=== PATIENT | female | born 1970 | race African-American/Black ===

== ENCOUNTER 2016-08-29 16:15 | Emergency (ER) | payer MEDICARE, OTHER ==
[~2016-08-29] VITALS: Ht 160 cm; Wt 45.0 kg
[2016-08-29] MEDS ORDERED: ONDANSETRON HCL 4MG/2ML VIAL IV STA (18:29)
[2016-08-29] MEDS ORDERED: SODIUM CHLORIDE 0.9% 1,000 ML IV ONE (18:29)
[2016-08-29 19:45] LABS: BASOPHILS % 0.5 % (0.0-2.0); EOSINOPHILS % 3.9 % (0.0-5.0); HEMATOCRIT. 32.9 % (36.0-48.0); HEMOGLOBIN. 11.2 g/dL (12.0-16.0); LYMPHOCYTES % 30.3 % (20.0-50.0); MEAN CORPUSCULAR HEMOGLOBIN 30.3 pg (28.0-32.0); MEAN CORPUSCULAR VOLUME 88.9 fL (81.0-99.0); MEAN PLATELET VOLUME 9.7 fl (7.4-10.4); MONOCYTES % 8.5 % (2.0-8.0); NEUTROPHILS % 56.8 % (40.0-76.0); PLATELET 200 x1000/uL (130-400); RED CELL DISTRIBUTION WIDTH 14.1 % (11.6-14.6); WHITE BLOOD COUNT 7.2 x1000/uL (4.5-11.0)
[2016-08-29 19:46] LABS: CHLORIDE 109 mEq/L (98-107); INDEX HEMOLYSI 1 (1-3); INDEX ICTERIC 1 (1-4); INDEX LIPEMIC 1 (1-3)
[2016-08-29 19:54] LABS: ALANINE AMINOTRANSFERASE 18 IU/L (13-61); ALBUMIN 3.2 g/dL (3.4-5.0); ANION GAP 12; CARBON DIOXIDE 26 mEq/L (21-32); ETHANOL BLOOD < 10 mg/dL; LIPASE 257 IU/L (73-393); UREA NITROGEN BLOOD 11 mg/dL (7-21); eGFR > 60 mL/min (>60)
[2016-08-29 19:55] LABS: HCG SCREEN NEGATIVE
[2016-08-29 20:36] LABS: CLARITY URINE CLEAR (CLEAR); COLOR URINE YELLOW (YELLOW); GLUCOSE URINE NEGATIVE (NEGATIVE); KETONES URINE NEGATIVE (NEGATIVE); LEUKOCYTE ESTERASE URINE NEGATIVE (NEGATIVE); NITRITE URINE NEGATIVE (NEGATIVE); OCCULT BLOOD URINE NEGATIVE (NEGATIVE); PH URINE 6.5 (4.5-8.0); PROTEIN URINE NEGATIVE (NEGATIVE); SPECIFIC GRAVITY URINE 1.013 (1.005-1.030); UROBILINOGEN URINE 0.2 E.U./dL (0.2-1.0)
[2016-08-29 20:46] LABS: *AMPHETAMINES SCREEN URINE NEGATIVE (NEGATIVE); *BARBITURATES SCREEN URINE NEGATIVE (NEGATIVE); *BENZODIAZEPINES SCREEN URINE NEGATIVE (NEGATIVE); *COCAINE SCREEN URINE NEGATIVE (NEGATIVE); CANNABINOID URINE SCREEN NEGATIVE (NEGATIVE); ECSTASY MDMA SCREEN URINE NEGATIVE (NEGATIVE); METHADONE URINE SCREEN NEGATIVE (NEGATIVE); OPIATES URINE SCREEN NEGATIVE (NEGATIVE); PHENCYCLIDINE URINE SCREEN NEGATIVE (NEGATIVE)
[2016-08-29] MEDS ORDERED: ALBUTEROL (0.083%) 2.5MG/3ML NEB HHN STA (21:50)
[2016-08-29 22:36] VITALS: BP 131/74
== END 2016-08-30 01:06 | disposition home or self-care (01) ==
LOC: ER 16:16
DX: N92.1 Excessive and frequent menstruation with irregular cycle (principal); K59.00 Constipation, unspecified; R10.9 Unspecified abdominal pain; D57.1 Sickle-cell disease without crisis; F41.9 Anxiety disorder, unspecified; J45.909 Unspecified asthma, uncomplicated; Z88.5 Allergy status to narcotic agent; Z88.1 Allergy status to other antibiotic agents
CPT/HCPCS: 36415; 74176; 80053; 80305; 81003; 83690; 84703; 85025; 85044; 94640; 96361; 96374; 99285; G0482; J2405; J7030; J7611

== ENCOUNTER 2016-11-15 15:02 | Emergency (ER) | payer MEDICARE, MEDICAID ==
[~2016-11-15] VITALS: Ht 160 cm; Wt 44.0 kg
[2016-11-15] MEDS ORDERED: ONDANSETRON 4MG ODT PO STA (21:57)
[2016-11-15] MEDS ORDERED: IBUPROFEN 600MG TABLET PO STA (21:57)
[2016-11-15 22:14] LABS: CLARITY URINE TURBID (CLEAR); COLOR URINE YELLOW (YELLOW); GLUCOSE URINE NEGATIVE (NEGATIVE); KETONES URINE 2+ (NEGATIVE); LEUKOCYTE ESTERASE URINE TRACE (NEGATIVE); NITRITE URINE NEGATIVE (NEGATIVE); OCCULT BLOOD URINE TRACE (NEGATIVE); PH URINE 6.5 (4.5-8.0); PROTEIN URINE NEGATIVE (NEGATIVE); SPECIFIC GRAVITY URINE 1.016 (1.005-1.030); UROBILINOGEN URINE 0.2 E.U./dL (0.2-1.0)
[2016-11-15 22:30] LABS: BASOPHILS % 0.6 % (0.0-2.0); EOSINOPHILS % 2.1 % (0.0-5.0); HEMATOCRIT. 36.7 % (36.0-48.0); HEMOGLOBIN. 12.6 g/dL (12.0-16.0); LYMPHOCYTES % 37.3 % (20.0-50.0); MEAN CORPUSCULAR HEMOGLOBIN 30.5 pg (28.0-32.0); MEAN CORPUSCULAR VOLUME 88.8 fL (81.0-99.0); MEAN PLATELET VOLUME 9.7 fl (7.4-10.4); MONOCYTES % 9.3 % (2.0-8.0); NEUTROPHILS % 50.7 % (40.0-76.0); PLATELET 215 x1000/uL (130-400); RED BLOOD CELL COUNT 4.13 mill/uL (4.2-5.4); RED CELL DISTRIBUTION WIDTH 14.5 % (11.6-14.6)
[2016-11-15 22:44] LABS: CARBON DIOXIDE 28 mEq/L (21-32); CHLORIDE 108 mEq/L (98-107)
[2016-11-15 23:18] VITALS: BP 119/69
== END 2016-11-16 07:01 | disposition home or self-care (01) ==
LOC: ER 15:02
DX: R10.9 Unspecified abdominal pain (principal); F41.9 Anxiety disorder, unspecified; J45.909 Unspecified asthma, uncomplicated; Z88.6 Allergy status to analgesic agent; Z88.1 Allergy status to other antibiotic agents
CPT/HCPCS: 36415; 80053; 81001; 81025; 85025; 99284; Q0162

== ENCOUNTER 2017-02-09 10:42 | Emergency (ER) | payer MEDICARE, MEDICAID ==
[~2017-02-09] VITALS: Ht 149.9 cm; Wt 42.0 kg
[2017-02-09 14:16] LABS: CLARITY URINE CLEAR (CLEAR); COLOR URINE YELLOW (YELLOW); GLUCOSE URINE NEGATIVE (NEGATIVE); KETONES URINE NEGATIVE (NEGATIVE); LEUKOCYTE ESTERASE URINE NEGATIVE (NEGATIVE); NITRITE URINE NEGATIVE (NEGATIVE); OCCULT BLOOD URINE NEGATIVE (NEGATIVE); PROTEIN URINE NEGATIVE (NEGATIVE); SPECIFIC GRAVITY URINE 1.009 (1.005-1.030); UROBILINOGEN URINE 0.2 E.U./dL (0.2-1.0)
[2017-02-09] MEDS ORDERED: SODIUM CHLORIDE 0.9% 1,000 ML IV ONE (15:52)
[2017-02-09] MEDS ORDERED: KETOROLAC 30MG/ML VIAL IV STA (15:52)
[2017-02-09 16:09] LABS: BASOPHILS % 0.6 % (0.0-2.0); EOSINOPHILS % 1.5 % (0.0-5.0); HEMATOCRIT. 37.8 % (36.0-48.0); HEMOGLOBIN. 12.8 g/dL (12.0-16.0); LYMPHOCYTES % 31.8 % (20.0-50.0); MEAN CORPUSCULAR HEMOGLOBIN 30.1 pg (28.0-32.0); MEAN PLATELET VOLUME 9.7 fl (7.4-10.4); MONOCYTES % 6.4 % (2.0-8.0); NEUTROPHILS % 59.7 % (40.0-76.0); PLATELET 209 x1000/uL (130-400); RED BLOOD CELL COUNT 4.25 mill/uL (4.2-5.4); RED CELL DISTRIBUTION WIDTH 13.2 % (11.6-14.6)
[2017-02-09 16:14] LABS: INR 1.1; PROTHROMBIN TIME 11.5 sec (9.4-11.6)
[2017-02-09 16:19] LABS: CARBON DIOXIDE 27 mEq/L (21-32); CHLORIDE 105 mEq/L (98-107)
[2017-02-09] MEDS ORDERED: LORAZEPAM 1MG TABLET PO ONE (16:45)
[2017-02-09 18:42] VITALS: BP 128/71
== END 2017-02-09 18:47 | disposition home or self-care (01) ==
LOC: ER 10:50
DX: A08.4 Viral intestinal infection, unspecified (principal); F41.9 Anxiety disorder, unspecified; J45.909 Unspecified asthma, uncomplicated; Z88.6 Allergy status to analgesic agent; Z88.3 Allergy status to other anti-infective agents
CPT/HCPCS: 36415; 80053; 81003; 81025; 83690; 85025; 85610; 96361; 96374; 99285; J1885; J7030

== ENCOUNTER 2017-03-18 13:13 | Emergency (ER) | payer MEDICARE, MEDICAID ==
[~2017-03-18] VITALS: Ht 157.5 cm; Wt 43.6 kg
[2017-03-18] MEDS ORDERED: ZOFRAN (13:26)
[2017-03-18] MEDS ORDERED: ONDANSETRON HCL 4MG/2ML VIAL IV STA (14:57)
[2017-03-18] MEDS ORDERED: SODIUM CHLORIDE 0.9% 1,000 ML IV ONE (14:57)
[2017-03-18] MEDS ORDERED: KETOROLAC 30MG/ML VIAL IV ONE (15:00)
[2017-03-18 15:28] LABS: BASOPHILS % 0.9 % (0.0-2.0); EOSINOPHILS % 3.7 % (0.0-5.0); HEMATOCRIT. 37.1 % (36.0-48.0); HEMOGLOBIN. 12.7 g/dL (12.0-16.0); LYMPHOCYTES % 29.2 % (20.0-50.0); MEAN CORPUSCULAR HEMOGLOBIN 30.6 pg (28.0-32.0); MEAN CORPUSCULAR VOLUME 89.5 fL (81.0-99.0); MEAN PLATELET VOLUME 9.7 fl (7.4-10.4); MONOCYTES % 7.2 % (2.0-8.0); PLATELET 205 x1000/uL (130-400); RED BLOOD CELL COUNT 4.14 mill/uL (4.2-5.4); RED CELL DISTRIBUTION WIDTH 14.2 % (11.6-14.6)
[2017-03-18 15:31] LABS: CHLORIDE 109 mEq/L (98-107)
[2017-03-18 15:35] LABS: CARBON DIOXIDE 29 mEq/L (21-32)
[2017-03-18 16:53] LABS: CLARITY URINE CLEAR (CLEAR); COLOR URINE YELLOW (YELLOW); GLUCOSE URINE NEGATIVE (NEGATIVE); KETONES URINE NEGATIVE (NEGATIVE); LEUKOCYTE ESTERASE URINE NEGATIVE (NEGATIVE); NITRITE URINE NEGATIVE (NEGATIVE); OCCULT BLOOD URINE NEGATIVE (NEGATIVE); PROTEIN URINE NEGATIVE (NEGATIVE); SPECIFIC GRAVITY URINE 1.016 (1.005-1.030); UROBILINOGEN URINE 0.2 E.U./dL (0.2-1.0)
[2017-03-18 18:06] VITALS: BP 106/67
== END 2017-03-18 18:18 | disposition home or self-care (01) ==
LOC: ER 13:34
DX: M25.512 Pain in left shoulder (principal); M54.42 Lumbago with sciatica, left side; R10.9 Unspecified abdominal pain; R11.0 Nausea; J45.909 Unspecified asthma, uncomplicated; F41.9 Anxiety disorder, unspecified; Z88.1 Allergy status to other antibiotic agents; Z88.5 Allergy status to narcotic agent
CPT/HCPCS: 36415; 80053; 81003; 81025; 83690; 85025; 96361; 96374; 96375; 99284; J1885; J2405; J7030

== ENCOUNTER 2017-05-11 14:37 | Emergency (ER) | payer MEDICARE, MEDICAID ==
[~2017-05-11] VITALS: Ht 157.5 cm; Wt 45.1 kg
[~2017-05-11 14:37] MED LIST: ZOFRAN
[2017-05-11] MEDS ORDERED: ONDANSETRON HCL 4MG/2ML VIAL IV STA (22:09)
[2017-05-11] MEDS ORDERED: FAMOTIDINE 20MG/2ML VIAL IV ONE (22:30)
[2017-05-11] MEDS ORDERED: LORAZEPAM 2MG/ML CPJ IV ONE (22:30)
[2017-05-11 22:57] LABS: BASOPHILS % 0.7 % (0.0-2.0); EOSINOPHILS % 2.9 % (0.0-5.0); HEMATOCRIT. 37.2 % (36.0-48.0); HEMOGLOBIN. 12.6 g/dL (12.0-16.0); LYMPHOCYTES % 37.4 % (20.0-50.0); MEAN CORPUSCULAR HEMOGLOBIN 30.5 pg (28.0-32.0); MEAN CORPUSCULAR VOLUME 90.1 fL (81.0-99.0); MEAN PLATELET VOLUME 9.6 fl (7.4-10.4); MONOCYTES % 8.7 % (2.0-8.0); NEUTROPHILS % 50.3 % (40.0-76.0); PLATELET 251 x1000/uL (130-400); RED BLOOD CELL COUNT 4.13 mill/uL (4.2-5.4); RED CELL DISTRIBUTION WIDTH 14.3 % (11.6-14.6)
[2017-05-11 23:02] LABS: INR 1.1
[2017-05-11 23:07] LABS: CARBON DIOXIDE 25 mEq/L (21-32); CHLORIDE 106 mEq/L (98-107)
[2017-05-11 23:47] LABS: CLARITY URINE CLEAR (CLEAR); COLOR URINE YELLOW (YELLOW); KETONES URINE 2+ (NEGATIVE); LEUKOCYTE ESTERASE URINE NEGATIVE (NEGATIVE); NITRITE URINE NEGATIVE (NEGATIVE); OCCULT BLOOD URINE NEGATIVE (NEGATIVE); PROTEIN URINE NEGATIVE (NEGATIVE); SPECIFIC GRAVITY URINE 1.016 (1.005-1.030); UROBILINOGEN URINE 0.2 E.U./dL (0.2-1.0)
[2017-05-12 00:04] LABS: *AMPHETAMINES SCREEN URINE NEGATIVE (NEGATIVE); *BARBITURATES SCREEN URINE NEGATIVE (NEGATIVE); *BENZODIAZEPINES SCREEN URINE NEGATIVE (NEGATIVE); *COCAINE SCREEN URINE NEGATIVE (NEGATIVE); CANNABINOID URINE SCREEN NEGATIVE (NEGATIVE); METHADONE URINE SCREEN NEGATIVE (NEGATIVE); OPIATES URINE SCREEN NEGATIVE (NEGATIVE); PHENCYCLIDINE URINE SCREEN NEGATIVE (NEGATIVE)
[2017-05-12 00:09] VITALS: BP 110/62
== END 2017-05-12 00:37 | disposition home or self-care (01) ==
LOC: ER 15:50
DX: K21.9 Gastro-esophageal reflux disease without esophagitis (principal); F41.9 Anxiety disorder, unspecified; Z88.5 Allergy status to narcotic agent; Z88.1 Allergy status to other antibiotic agents
CPT/HCPCS: 36415; 80053; 80305; 81003; 83690; 85025; 85610; 96374; 96375; 99284; J2060; J2405; J3490

== ENCOUNTER 2017-06-26 12:48 | Emergency (ER) | payer MEDICARE, MEDICAID ==
[~2017-06-26] VITALS: Ht 157.5 cm; Wt 44.7 kg
[2017-06-26 15:34] LABS: BASOPHILS % 0.3 % (0.0-2.0); EOSINOPHILS % 1.4 % (0.0-5.0); HEMATOCRIT. 36.4 % (36.0-48.0); HEMOGLOBIN. 12.2 g/dL (12.0-16.0); LYMPHOCYTES % 24.3 % (20.0-50.0); MEAN CORPUSCULAR HEMOGLOBIN 30.1 pg (28.0-32.0); MEAN CORPUSCULAR VOLUME 89.5 fL (81.0-99.0); MEAN PLATELET VOLUME 9.4 fl (7.4-10.4); MONOCYTES % 7.8 % (2.0-8.0); NEUTROPHILS % 66.2 % (40.0-76.0); PLATELET 240 x1000/uL (130-400); RED BLOOD CELL COUNT 4.07 mill/uL (4.2-5.4); RED CELL DISTRIBUTION WIDTH 13.4 % (11.6-14.6)
[2017-06-26 15:45] LABS: CHLORIDE 105 mEq/L (98-107)
[2017-06-26 16:53] VITALS: BP 118/72
== END 2017-06-26 16:56 | disposition home or self-care (01) ==
LOC: ER 12:48
DX: M94.0 Chondrocostal junction syndrome [Tietze] (principal); R09.81 Nasal congestion; J45.909 Unspecified asthma, uncomplicated; Z88.1 Allergy status to other antibiotic agents; Z88.5 Allergy status to narcotic agent
CPT/HCPCS: 36415; 71045; 80053; 85025; 85044; 87804; 93005; 99285

== ENCOUNTER 2017-11-16 16:20 | Emergency (ER) | payer MEDICARE, MEDICAID ==
[~2017-11-16] VITALS: Ht 157.5 cm; Wt 44.4 kg
[2017-11-16 17:50] LABS: BASOPHILS % 1.2 % (0.0-2.0); EOSINOPHILS % 5.8 % (0.0-5.0); LYMPHOCYTES % 31.7 % (20.0-50.0); MEAN CORPUSCULAR HEMOGLOBIN 29.9 pg (28.0-32.0); MEAN CORPUSCULAR VOLUME 89.6 fL (81.0-99.0); MEAN PLATELET VOLUME 9.7 fl (7.4-10.4); MONOCYTES % 7.6 % (2.0-8.0); NEUTROPHILS % 53.7 % (40.0-76.0); PLATELET 242 x1000/uL (130-400); RED BLOOD CELL COUNT 4.02 mill/uL (4.2-5.4); RED CELL DISTRIBUTION WIDTH 13.9 % (11.6-14.6)
[2017-11-16] MEDS ORDERED: SODIUM CHLORIDE 0.9% 1,000 ML IV ONE (18:03)
[2017-11-16 18:07] LABS: CHLORIDE 107 mEq/L (98-107)
[2017-11-16] MEDS ORDERED: MAGNESIUM/ALUMINUM HYDROXIDE/SIMETHICONE 30ML UDC PO ONE (18:30)
[2017-11-16 18:38] LABS: CLARITY URINE CLEAR (CLEAR); COLOR URINE YELLOW (YELLOW); KETONES URINE NEGATIVE (NEGATIVE); LEUKOCYTE ESTERASE URINE NEGATIVE (NEGATIVE); NITRITE URINE NEGATIVE (NEGATIVE); OCCULT BLOOD URINE 2+ (NEGATIVE); PH URINE 7.5 (4.5-8.0); PROTEIN URINE NEGATIVE (NEGATIVE); SPECIFIC GRAVITY URINE 1.014 (1.005-1.030); UROBILINOGEN URINE 0.2 E.U./dL (0.2-1.0)
[2017-11-16 18:39] LABS: INR 1.1; PARTIAL THROMBOPLASTIN TIME 25.5 sec (23.4-31.0); PROTHROMBIN TIME 11.4 sec (9.4-11.6)
[2017-11-16 18:51] LABS: OPIATES URINE SCREEN NEGATIVE (NEGATIVE); PHENCYCLIDINE URINE SCREEN NEGATIVE (NEGATIVE)
[2017-11-16 18:52] LABS: *AMPHETAMINES SCREEN URINE NEGATIVE (NEGATIVE); *BARBITURATES SCREEN URINE NEGATIVE (NEGATIVE); *BENZODIAZEPINES SCREEN URINE NEGATIVE (NEGATIVE); *COCAINE SCREEN URINE NEGATIVE (NEGATIVE); CANNABINOID URINE SCREEN NEGATIVE (NEGATIVE); METHADONE URINE SCREEN NEGATIVE (NEGATIVE)
[2017-11-16 20:30] VITALS: BP 112/70
== END 2017-11-16 20:30 | disposition home or self-care (01) ==
LOC: ER 16:20
DX: R10.13 Epigastric pain (principal); H53.8 Other visual disturbances; F41.9 Anxiety disorder, unspecified; D57.1 Sickle-cell disease without crisis; J45.909 Unspecified asthma, uncomplicated; K21.9 Gastro-esophageal reflux disease without esophagitis; Z88.5 Allergy status to narcotic agent; Z88.1 Allergy status to other antibiotic agents; Z88.0 Allergy status to penicillin
CPT/HCPCS: 36415; 80053; 80305; 81003; 81025; 83690; 85025; 85044; 85610; 85730; 93971; 99285; J7030

== ENCOUNTER 2017-12-23 16:27 | Emergency (ER) | payer MEDICARE, MEDICAID ==
[~2017-12-23] VITALS: Ht 165.1 cm; Wt 52.0 kg
[2017-12-24] MEDS ORDERED: METOCLOPRAMIDE HCL 10MG/2ML VIAL IV ONE (01:30)
[2017-12-24] MEDS ORDERED: FAMOTIDINE 20MG/2ML VIAL IV STA (01:30)
[2017-12-24] MEDS ORDERED: MAGNESIUM/ALUMINUM HYDROXIDE/SIMETHICONE 30ML UDC PO STA (01:30)
[2017-12-24] MEDS ORDERED: DIPHENHYDRAMINE 50MG/ML VIAL IV ONE (01:30)
[2017-12-24 02:16] LABS: HEMATOCRIT. 35.7 % (36.0-48.0); HEMOGLOBIN. 12.1 g/dL (12.0-16.0); LYMPHOCYTES % 43.5 % (20.0-50.0); MEAN CORPUSCULAR HEMOGLOBIN 30.5 pg (28.0-32.0); MEAN CORPUSCULAR VOLUME 89.8 fL (81.0-99.0); MEAN PLATELET VOLUME 9.9 fl (7.4-10.4); MONOCYTES % 9.2 % (2.0-8.0); NEUTROPHILS % 40.3 % (40.0-76.0); PLATELET 205 x1000/uL (130-400); RED BLOOD CELL COUNT 3.98 mill/uL (4.2-5.4); RED CELL DISTRIBUTION WIDTH 14.3 % (11.6-14.6)
[2017-12-24 02:21] LABS: CHLORIDE 106 mEq/L (98-107)
[2017-12-24 02:23] LABS: INR 1.1; PROTHROMBIN TIME 10.7 sec (9.1-11.1)
[2017-12-24 04:05] LABS: CLARITY URINE CLEAR (CLEAR); COLOR URINE YELLOW (YELLOW); KETONES URINE NEGATIVE (NEGATIVE); LEUKOCYTE ESTERASE URINE TRACE (NEGATIVE); NITRITE URINE NEGATIVE (NEGATIVE); OCCULT BLOOD URINE 2+ (NEGATIVE); PH URINE 6.5 (4.5-8.0); PROTEIN URINE NEGATIVE (NEGATIVE); SPECIFIC GRAVITY URINE 1.013 (1.005-1.030); UROBILINOGEN URINE 0.2 E.U./dL (0.2-1.0)
[2017-12-24 05:00] VITALS: BP 93/59
== END 2017-12-24 05:15 | disposition home or self-care (01) ==
LOC: ER 19:02
DX: G43.909 Migraine, unspecified, not intractable, without status migrainosus (principal); R10.13 Epigastric pain; H53.8 Other visual disturbances; F41.9 Anxiety disorder, unspecified; J45.909 Unspecified asthma, uncomplicated; Z88.5 Allergy status to narcotic agent; Z88.1 Allergy status to other antibiotic agents
CPT/HCPCS: 36415; 76700; 80053; 81003; 81025; 83690; 85025; 85610; 96374; 96375; 99285; J1200; J2765; J3490

== ENCOUNTER 2018-02-20 18:23 | Emergency (ER) | payer MEDICARE, MEDICAID ==
[~2018-02-20] VITALS: Ht 162.6 cm; Wt 41.0 kg
[2018-02-20] MEDS ORDERED: MAGNESIUM/ALUMINUM HYDROXIDE/SIMETHICONE 30ML UDC PO STA (19:30)
[2018-02-20] MEDS ORDERED: IBUPROFEN 600MG TABLET PO STA (19:30)
[2018-02-20] MEDS ORDERED: ONDANSETRON 4MG ODT PO STA (19:30)
[2018-02-20 21:00] LABS: BASOPHILS % 0.9 % (0.0-2.0); EOSINOPHILS % 7.1 % (0.0-5.0); HEMATOCRIT. 38.5 % (36.0-48.0); HEMOGLOBIN. 12.8 g/dL (12.0-16.0); LYMPHOCYTES % 31.7 % (20.0-50.0); MEAN CORPUSCULAR HEMOGLOBIN 29.9 pg (28.0-32.0); MEAN CORPUSCULAR VOLUME 89.9 fL (81.0-99.0); MEAN PLATELET VOLUME 9.9 fl (7.4-10.4); MONOCYTES % 6.4 % (2.0-8.0); NEUTROPHILS % 53.9 % (40.0-76.0); PLATELET 249 x1000/uL (130-400); RED BLOOD CELL COUNT 4.28 mill/uL (4.2-5.4); RED CELL DISTRIBUTION WIDTH 15.5 % (11.6-14.6)
[2018-02-20 21:01] LABS: CHLORIDE 107 mEq/L (98-107)
[2018-02-20 21:05] LABS: CLARITY URINE CLEAR (CLEAR); COLOR URINE YELLOW (YELLOW); KETONES URINE NEGATIVE (NEGATIVE); LEUKOCYTE ESTERASE URINE NEGATIVE (NEGATIVE); NITRITE URINE NEGATIVE (NEGATIVE); OCCULT BLOOD URINE NEGATIVE (NEGATIVE); PROTEIN URINE NEGATIVE (NEGATIVE); SPECIFIC GRAVITY URINE 1.015 (1.005-1.030); UROBILINOGEN URINE 0.2 E.U./dL (0.2-1.0)
[2018-02-20 21:07] LABS: HCG SCREEN NEGATIVE
[2018-02-20] MEDS ORDERED: KETOROLAC 60MG/2ML VIAL IM ONE (22:00)
[2018-02-20] MEDS ORDERED: LORAZEPAM 0.5MG TABLET PO ONE (22:00)
[2018-02-20] MEDS ORDERED: IBUPROFEN 600MG TABLET PO ONE (23:15)
[2018-02-20 23:30] VITALS: BP 120/74
== END 2018-02-20 23:30 | disposition home or self-care (01) ==
LOC: ER 18:23
DX: K85.90 Acute pancreatitis without necrosis or infection, unspecified (principal); D64.9 Anemia, unspecified; J45.909 Unspecified asthma, uncomplicated; Z88.1 Allergy status to other antibiotic agents; Z88.6 Allergy status to analgesic agent; Z88.8 Allergy status to other drugs, medicaments and biological substances
CPT/HCPCS: 36415; 71045; 74018; 76705; 80053; 81003; 83690; 84703; 85025; 93005; 99285; J1885; Q0162

== ENCOUNTER 2018-04-04 08:17 | Emergency (ER) | payer MEDICARE, MEDICAID ==
[~2018-04-04] VITALS: Ht 157.5 cm; Wt 41.0 kg
[2018-04-04] MEDS ORDERED: LORAZEPAM 0.5MG TABLET PO ONE (09:45)
[2018-04-04] MEDS ORDERED: ACETAMINOPHEN 325MG TABLET PO STA (09:45)
[2018-04-04] MEDS ORDERED: FAMOTIDINE 20MG TABLET PO ONE (09:45)
[2018-04-04] MEDS ORDERED: ONDANSETRON 4MG ODT PO STA (09:45)
[2018-04-04 10:46] LABS: BASOPHILS % 0.6 % (0.0-2.0); EOSINOPHILS % 2.4 % (0.0-5.0); HEMOGLOBIN. 13.3 g/dL (12.0-16.0); LYMPHOCYTES % 25.7 % (20.0-50.0); MEAN CORPUSCULAR HEMOGLOBIN 30.6 pg (28.0-32.0); MEAN CORPUSCULAR VOLUME 89.7 fL (81.0-99.0); MEAN PLATELET VOLUME 9.8 fl (7.4-10.4); MONOCYTES % 6.8 % (2.0-8.0); NEUTROPHILS % 64.5 % (40.0-76.0); PLATELET 227 x1000/uL (130-400); RED BLOOD CELL COUNT 4.35 mill/uL (4.2-5.4); RED CELL DISTRIBUTION WIDTH 15.2 % (11.6-14.6)
[2018-04-04 10:52] LABS: CLARITY URINE CLEAR (CLEAR); COLOR URINE YELLOW (YELLOW); KETONES URINE NEGATIVE (NEGATIVE); LEUKOCYTE ESTERASE URINE TRACE (NEGATIVE); NITRITE URINE NEGATIVE (NEGATIVE); OCCULT BLOOD URINE NEGATIVE (NEGATIVE); PROTEIN URINE NEGATIVE (NEGATIVE); SPECIFIC GRAVITY URINE 1.015 (1.005-1.030); UROBILINOGEN URINE 0.2 E.U./dL (0.2-1.0)
[2018-04-04 10:53] LABS: CHLORIDE 105 mEq/L (98-107)
[2018-04-04 10:57] LABS: INR 1.1; PROTHROMBIN TIME 10.8 sec (9.1-11.1)
[2018-04-04 11:40] VITALS: BP 108/81
== END 2018-04-04 11:52 | disposition home or self-care (01) ==
LOC: ER 08:17
DX: R10.0 Acute abdomen (principal); F41.9 Anxiety disorder, unspecified
CPT/HCPCS: 36415; 80053; 81003; 81025; 83690; 85025; 85610; 99284; Q0162

== ENCOUNTER 2018-05-11 13:33 | Inpatient (IN) | payer MEDICARE, MEDICAID ==
[~2018-05-11] VITALS: Ht 157.5 cm; Wt 42.2 kg
[2018-05-11] MEDS ORDERED: SODIUM CHLORIDE 0.9% 1,000 ML IV ONE (16:15)
[2018-05-11] MEDS ORDERED: KETOROLAC 30MG/ML VIAL IV STA (16:15)
[2018-05-11 16:42] LABS: BASOPHILS % 0.4 % (0.0-2.0); EOSINOPHILS % 3.8 % (0.0-5.0); HEMATOCRIT. 40.5 % (36.0-48.0); HEMOGLOBIN. 13.5 g/dL (12.0-16.0); LYMPHOCYTES % 28.9 % (20.0-50.0); MEAN CORPUSCULAR HEMOGLOBIN 30.7 pg (28.0-32.0); MEAN CORPUSCULAR VOLUME 91.6 fL (81.0-99.0); MEAN PLATELET VOLUME 9.8 fl (7.4-10.4); MONOCYTES % 6.2 % (2.0-8.0); NEUTROPHILS % 60.7 % (40.0-76.0); PLATELET 252 x1000/uL (130-400); RED BLOOD CELL COUNT 4.42 mill/uL (4.2-5.4); RED CELL DISTRIBUTION WIDTH 14.1 % (11.6-14.6)
[2018-05-11 16:46] LABS: CHLORIDE 103 mEq/L (98-107)
[2018-05-11 17:42] LABS: CLARITY URINE CLEAR (CLEAR); COLOR URINE DARK YELLOW (YELLOW); KETONES URINE NEGATIVE (NEGATIVE); LEUKOCYTE ESTERASE URINE NEGATIVE (NEGATIVE); NITRITE URINE NEGATIVE (NEGATIVE); OCCULT BLOOD URINE NEGATIVE (NEGATIVE); PROTEIN URINE NEGATIVE (NEGATIVE); SPECIFIC GRAVITY URINE 1.012 (1.005-1.030); UROBILINOGEN URINE 0.2 E.U./dL (0.2-1.0)
[2018-05-11] MEDS ORDERED: ASPIRIN 81MG TABLET PO ONE (19:30)
[2018-05-11] MEDS ORDERED: DOCUSATE SODIUM 100MG CAPSULE PO PRN (22:00)
[2018-05-11] MEDS ORDERED: CLONIDINE 0.1MG TABLET PO PRN (22:00)
[2018-05-11] MEDS ORDERED: IPRATROPIUM/ALBUTEROL 0.5-3(2.5)MG/3ML NEB INH PRN (22:00)
[2018-05-11] MEDS ORDERED: MAGNESIUM/ALUMINUM HYDROXIDE/SIMETHICONE 30ML UDC PO PRN (22:00)
[2018-05-11] MEDS ORDERED: HYDROCODONE/ACETAMINOPHEN 5/325MG TABLET PO PRN (22:00)
[2018-05-11] MEDS ORDERED: GUAIFENESIN 200MG/10ML SUGAR FREE UDC PO PRN (22:00)
[2018-05-11 23:18] LABS: CHLORIDE 107 mEq/L (98-107)
[2018-05-11 23:27] LABS: CREATINE KINASE 77 IU/L (26-192)
[2018-05-11 23:29] LABS: CREATINE KINASE MB FRACTION < 1.0 ng/mL (0.5-3.6)
[2018-05-11] MEDS: ACETAMINOPHEN 650MG/20.3ML UDC GT PRN (23:39)
[2018-05-11 23:55] VITALS: BP 122/62
[2018-05-12 00:12] VITALS: BP 122/62
[2018-05-12] MEDS ORDERED: LORA-250 PO (00:44)
[2018-05-12] MEDS ORDERED: FAMO40TA70 PO (00:44)
[2018-05-12 04:00] VITALS: BP 92/54
[2018-05-12] MEDS: ACETAMINOPHEN 650MG/20.3ML UDC GT PRN (05:28)
[2018-05-12] MEDS: KETOROLAC 30MG/ML VIAL IV PRN ×2 (05:29→19:58)
[2018-05-12 06:28] LABS: EOSINOPHILS % 11.4 % (0.0-5.0); HEMOGLOBIN. 12.3 g/dL (12.0-16.0); LYMPHOCYTES % 36.5 % (20.0-50.0); MEAN CORPUSCULAR VOLUME 90.9 fL (81.0-99.0); MEAN PLATELET VOLUME 9.8 fl (7.4-10.4); MONOCYTES % 9.6 % (2.0-8.0); NEUTROPHILS % 41.5 % (40.0-76.0); PLATELET 219 x1000/uL (130-400); RED BLOOD CELL COUNT 3.96 mill/uL (4.2-5.4); RED CELL DISTRIBUTION WIDTH 14.3 % (11.6-14.6)
[2018-05-12 06:45] LABS: LDL CHOLESTEROL 77 mg/dL (5-100)
[2018-05-12 06:46] LABS: CREATINE KINASE 70 IU/L (26-192); HDL CHOLESTEROL 88 mg/dL (40-59)
[2018-05-12 06:49] LABS: CREATINE KINASE MB FRACTION < 1.0 ng/mL (0.5-3.6)
[2018-05-12 07:59] LABS: *COCAINE SCREEN URINE NEGATIVE (NEGATIVE)
[2018-05-12 08:00] VITALS: BP 101/65
[2018-05-12 08:00] LABS: *AMPHETAMINES SCREEN URINE NEGATIVE (NEGATIVE); *BARBITURATES SCREEN URINE NEGATIVE (NEGATIVE); CANNABINOID URINE SCREEN NEGATIVE (NEGATIVE); METHADONE URINE SCREEN NEGATIVE (NEGATIVE); OPIATES URINE SCREEN NEGATIVE (NEGATIVE); PHENCYCLIDINE URINE SCREEN NEGATIVE (NEGATIVE)
[2018-05-12 08:01] LABS: *BENZODIAZEPINES SCREEN URINE NEGATIVE (NEGATIVE)
[2018-05-12] MEDS: ONDANSETRON HCL 4MG/2ML INJ IV PRN ×2 (09:07→18:11)
[2018-05-12] MEDS: ENOXAPARIN 40MG/0.4ML SYR SUBCUT SCH (09:08)
[2018-05-12 12:00] VITALS: BP 91/60
[2018-05-12] MEDS: LORAZEPAM 1MG TABLET PO PRN (13:27)
[2018-05-12 16:00] VITALS: BP 101/39
[2018-05-12 20:00] VITALS: BP_SYST 104; BP_SYST 86; BP_SYST 96; BP_DIAS 54; BP_DIAS 56
[2018-05-12] MEDS: SODIUM CHLORIDE 0.9% 1,000 ML IV SCH ×2 (20:00)
[2018-05-13] VITALS: BP 94/64
[2018-05-13] MEDS: ONDANSETRON HCL 4MG/2ML INJ IV PRN ×3 (00:37→17:36)
[2018-05-13] MEDS: LORAZEPAM 1MG TABLET PO PRN ×2 (00:37→09:09)
[2018-05-13 04:00] VITALS: BP 87/55
[2018-05-13 07:46] LABS: BASOPHILS % 0.4 % (0.0-2.0); EOSINOPHILS % 8.5 % (0.0-5.0); HEMATOCRIT. 36.9 % (36.0-48.0); HEMOGLOBIN. 12.1 g/dL (12.0-16.0); LYMPHOCYTES % 29.1 % (20.0-50.0); MEAN CORPUSCULAR HEMOGLOBIN 30.2 pg (28.0-32.0); MEAN CORPUSCULAR VOLUME 91.8 fL (81.0-99.0); MEAN PLATELET VOLUME 9.9 fl (7.4-10.4); MONOCYTES % 7.6 % (2.0-8.0); NEUTROPHILS % 54.4 % (40.0-76.0); PLATELET 198 x1000/uL (130-400); RED BLOOD CELL COUNT 4.02 mill/uL (4.2-5.4); RED CELL DISTRIBUTION WIDTH 13.9 % (11.6-14.6)
[2018-05-13 08:00] VITALS: BP 124/53
[2018-05-13 08:13] LABS: CHLORIDE 107 mEq/L (98-107)
[2018-05-13] MEDS: ENOXAPARIN 40MG/0.4ML SYR SUBCUT SCH (09:07)
[2018-05-13] MEDS: KETOROLAC 30MG/ML VIAL IV PRN (09:08)
[2018-05-13 12:00] VITALS: BP 91/61
[2018-05-13 16:00] VITALS: BP_SYST 110; BP_SYST 93; BP_DIAS 60; BP_DIAS 64
[2018-05-13] MEDS: SODIUM CHLORIDE 0.9% 1,000 ML IV SCH (16:00)
== END 2018-05-13 18:15 | disposition home or self-care (01) | DRG 392 ==
LOC: ER 13:33 → 6EST 22:23 → EDBEDREQTM 22:25 → EDBEDREQ 22:25 → ENRESERV 22:29
PROVIDERS: ADMIT Internal Medicine; ATTEND Internal Medicine
DX: K21.9 Gastro-esophageal reflux disease without esophagitis (principal); D57.3 Sickle-cell trait; J45.909 Unspecified asthma, uncomplicated; F41.1 Generalized anxiety disorder; G43.909 Migraine, unspecified, not intractable, without status migrainosus; F41.0 Panic disorder [episodic paroxysmal anxiety]; H53.8 Other visual disturbances; Z59.0 Homelessness; Z88.1 Allergy status to other antibiotic agents; Z88.8 Allergy status to other drugs, medicaments and biological substances; Z79.899 Other long term (current) drug therapy
CPT/HCPCS: 36415; 70551; 71045; 74176; 80048; 80061; 80305; 81025; 82550; 82553; 83735; 84443; 84484; 93005; 93970; 96374; 97162; 97166; 97530; 99285; J1650; J1885; J2405; J7030

== ENCOUNTER 2018-06-13 14:42 | Emergency (ER) | payer MEDICARE, MEDICAID ==
[~2018-06-13] VITALS: Ht 160 cm; Wt 59.0 kg
[~2018-06-13 14:42] MED LIST changes: +FAMO40TA70 PO; +LORA-250 PO
[2018-06-13] MEDS ORDERED: LORAZEPAM 1MG TABLET PO ONE (20:45)
[2018-06-13 21:27] LABS: CLARITY URINE CLEAR (CLEAR); COLOR URINE YELLOW (YELLOW); KETONES URINE TRACE (NEGATIVE); LEUKOCYTE ESTERASE URINE NEGATIVE (NEGATIVE); NITRITE URINE NEGATIVE (NEGATIVE); OCCULT BLOOD URINE NEGATIVE (NEGATIVE); PH URINE 7.5 (4.5-8.0); PROTEIN URINE NEGATIVE (NEGATIVE); SPECIFIC GRAVITY URINE 1.014 (1.005-1.030); UROBILINOGEN URINE 0.2 E.U./dL (0.2-1.0)
[2018-06-13 21:36] LABS: *AMPHETAMINES SCREEN URINE NEGATIVE (NEGATIVE); *BARBITURATES SCREEN URINE NEGATIVE (NEGATIVE); *BENZODIAZEPINES SCREEN URINE NEGATIVE (NEGATIVE); *COCAINE SCREEN URINE NEGATIVE (NEGATIVE); METHADONE URINE SCREEN NEGATIVE (NEGATIVE); OPIATES URINE SCREEN NEGATIVE (NEGATIVE)
[2018-06-13 21:37] LABS: CANNABINOID URINE SCREEN NEGATIVE (NEGATIVE); PHENCYCLIDINE URINE SCREEN NEGATIVE (NEGATIVE)
[2018-06-13 21:59] LABS: BASOPHILS % 0.9 % (0.0-2.0); EOSINOPHILS % 3.5 % (0.0-5.0); HEMATOCRIT. 36.9 % (36.0-48.0); HEMOGLOBIN. 12.4 g/dL (12.0-16.0); LYMPHOCYTES % 37.6 % (20.0-50.0); MEAN CORPUSCULAR HEMOGLOBIN 30.8 pg (28.0-32.0); MEAN CORPUSCULAR VOLUME 91.8 fL (81.0-99.0); MEAN PLATELET VOLUME 9.9 fl (7.4-10.4); MONOCYTES % 8.9 % (2.0-8.0); NEUTROPHILS % 49.1 % (40.0-76.0); PLATELET 190 x1000/uL (130-400); RED BLOOD CELL COUNT 4.02 mill/uL (4.2-5.4); RED CELL DISTRIBUTION WIDTH 13.6 % (11.6-14.6)
[2018-06-13 22:02] LABS: CHLORIDE 108 mEq/L (98-107)
[2018-06-13 22:07] LABS: ETHANOL BLOOD < 10 mg/dL
[2018-06-13] MEDS ORDERED: ACETAMINOPHEN 500MG TABLET PO ONE (22:30)
[2018-06-13 22:41] VITALS: BP 115/74
== END 2018-06-13 23:07 | disposition home or self-care (01) ==
LOC: ER 15:30
DX: R07.89 Other chest pain (principal); Z88.5 Allergy status to narcotic agent; Z88.8 Allergy status to other drugs, medicaments and biological substances
CPT/HCPCS: 36415; 71045; 80305; 81025; 83880; 84484; 93005; 99284

== ENCOUNTER 2018-06-18 14:37 | Inpatient (IN) | payer MEDICARE, MEDICAID ==
[~2018-06-18] VITALS: Ht 157.5 cm; Wt 43.1 kg
[2018-06-18] MEDS ORDERED: METOCLOPRAMIDE HCL 10MG/2ML VIAL IV ONE ×2 (17:00→18:45)
[2018-06-18] MEDS ORDERED: KETOROLAC 15MG/ML VIAL IV ONE (17:00)
[2018-06-18] MEDS ORDERED: SODIUM CHLORIDE 0.9% 1,000 ML IV ONE (17:00)
[2018-06-18] MEDS ORDERED: DIPHENHYDRAMINE 50MG/ML VIAL IV ONE (18:45)
[2018-06-18 19:00] LABS: CLARITY URINE CLEAR (CLEAR); COLOR URINE YELLOW (YELLOW); KETONES URINE NEGATIVE (NEGATIVE); LEUKOCYTE ESTERASE URINE NEGATIVE (NEGATIVE); NITRITE URINE NEGATIVE (NEGATIVE); OCCULT BLOOD URINE NEGATIVE (NEGATIVE); PH URINE 7.5 (4.5-8.0); PROTEIN URINE NEGATIVE (NEGATIVE); SPECIFIC GRAVITY URINE 1.013 (1.005-1.030); UROBILINOGEN URINE 0.2 E.U./dL (0.2-1.0)
[2018-06-18 20:37] LABS: BASOPHILS % 0.5 % (0.0-2.0); EOSINOPHILS % 2.5 % (0.0-5.0); HEMATOCRIT. 36.6 % (36.0-48.0); HEMOGLOBIN. 12.2 g/dL (12.0-16.0); LYMPHOCYTES % 42.3 % (20.0-50.0); MEAN CORPUSCULAR HEMOGLOBIN 30.7 pg (28.0-32.0); MEAN CORPUSCULAR VOLUME 92.2 fL (81.0-99.0); MEAN PLATELET VOLUME 10.1 fl (7.4-10.4); MONOCYTES % 12.9 % (2.0-8.0); NEUTROPHILS % 41.8 % (40.0-76.0); PLATELET 171 x1000/uL (130-400); RED BLOOD CELL COUNT 3.97 mill/uL (4.2-5.4); RED CELL DISTRIBUTION WIDTH 14.1 % (11.6-14.6)
[2018-06-18 20:43] LABS: CHLORIDE 110 mEq/L (98-107); D-DIMER 0.3 mg/L FEU (<0.50); INR 1.1; PARTIAL THROMBOPLASTIN TIME 28.7 sec (23.4-31.0); PROTHROMBIN TIME 10.7 sec (9.1-11.1)
[2018-06-18 20:54] LABS: HCG SCREEN NEGATIVE
[2018-06-18] MEDS ORDERED: ASPIRIN 325MG EC TABLET PO ONE (21:00)
[2018-06-18] MEDS ORDERED: DIPHENHYDRAMINE 50MG/ML VIAL IV PRN (22:45)
[2018-06-18] MEDS ORDERED: IPRATROPIUM/ALBUTEROL 0.5-3(2.5)MG/3ML NEB INH PRN (22:45)
[2018-06-18] MEDS ORDERED: ONDANSETRON HCL 4MG/2ML INJ IV PRN (22:45)
[2018-06-19 03:15] VITALS: BP 95/61
[2018-06-19 03:30] VITALS: BP_SYST 95; BP_DIAS 60; BP_DIAS 61
[2018-06-19] MEDS: SODIUM CHLORIDE 0.9% 1,000 ML IV SCH ×3 (05:51→21:50)
[2018-06-19 06:36] LABS: BASOPHILS % 0.5 % (0.0-2.0); EOSINOPHILS % 3.6 % (0.0-5.0); HEMATOCRIT. 33.8 % (36.0-48.0); HEMOGLOBIN. 11.4 g/dL (12.0-16.0); MEAN CORPUSCULAR HEMOGLOBIN 30.9 pg (28.0-32.0); MEAN CORPUSCULAR VOLUME 91.3 fL (81.0-99.0); MEAN PLATELET VOLUME 10.1 fl (7.4-10.4); NEUTROPHILS % 40.9 % (40.0-76.0); PLATELET 159 x1000/uL (130-400); RED CELL DISTRIBUTION WIDTH 13.9 % (11.6-14.6)
[2018-06-19 06:42] LABS: CHLORIDE 111 mEq/L (98-107)
[2018-06-19 08:00] VITALS: BP 99/56
[2018-06-19] MEDS: ACETAMINOPHEN 325MG TABLET PO PRN ×2 (08:08→21:50)
[2018-06-19 12:00] VITALS: BP 99/55
[2018-06-19 16:00] VITALS: BP 103/53
[2018-06-19] MEDS: LORAZEPAM 0.5MG TABLET PO PRN (17:41)
[2018-06-19] MEDS: PAROXETINE HCL 10MG TABLET PO SCH (18:35)
[2018-06-19 20:00] VITALS: BP 100/61
[2018-06-20] VITALS (7 sets, daily range): BP systolic 96–109; BP diastolic 55–71
[2018-06-20] MEDS: PAROXETINE HCL 10MG TABLET PO SCH (08:19)
[2018-06-20] MEDS: ACETAMINOPHEN 325MG TABLET PO PRN (08:38)
[2018-06-20] MEDS: SODIUM CHLORIDE 0.9% 1,000 ML IV SCH (10:12)
[2018-06-20] MEDS: LORAZEPAM 0.5MG TABLET PO PRN (10:12)
[2018-06-20] MEDS ORDERED: IBUPROFEN 400MG TABLET PO PRN (13:00)
== END 2018-06-20 18:25 | disposition home or self-care (01) | DRG 866 ==
LOC: ER 14:37 → 8WST 21:16 → ENRESERV 22:45
PROVIDERS: ADMIT Internal Medicine; ATTEND Internal Medicine
DX: B34.9 Viral infection, unspecified (principal); Z68.1 Body mass index [BMI] 19.9 or less, adult; F32.9 Major depressive disorder, single episode, unspecified; J45.909 Unspecified asthma, uncomplicated; M79.652 Pain in left thigh; Z88.1 Allergy status to other antibiotic agents; Z88.6 Allergy status to analgesic agent; Z79.899 Other long term (current) drug therapy
CPT/HCPCS: 36415; 71045; 80048; 82962; 83880; 84484; 84703; 85044; 85379; 87804; 93005; 96374; 97162; 97535; 99285; J1200; J1885; J2405; J2765; J7030

== ENCOUNTER 2018-07-18 17:59 | Emergency (ER) | payer MEDICARE, MEDICAID ==
[~2018-07-18] VITALS: Ht 157.5 cm; Wt 43.3 kg
[2018-07-19] MEDS ORDERED: ONDANSETRON HCL 4MG/2ML INJ IV STA (07:00)
[2018-07-19] MEDS ORDERED: MORPHINE SULFATE 4 MG/ML CPJ (NOT FOR IM USE) IV STA (07:00)
[2018-07-19] MEDS ORDERED: KETOROLAC 30MG/ML VIAL IV ONE (07:15)
[2018-07-19 07:22] LABS: CHLORIDE 106 mEq/L (98-107)
[2018-07-19 07:31] LABS: BASOPHILS % 0.8 % (0.0-2.0); EOSINOPHILS % 6.9 % (0.0-5.0); HEMATOCRIT. 40.1 % (36.0-48.0); HEMOGLOBIN. 13.4 g/dL (12.0-16.0); MEAN CORPUSCULAR HEMOGLOBIN 30.7 pg (28.0-32.0); MEAN CORPUSCULAR VOLUME 91.8 fL (81.0-99.0); MEAN PLATELET VOLUME 10.2 fl (7.4-10.4); MONOCYTES % 7.8 % (2.0-8.0); NEUTROPHILS % 36.5 % (40.0-76.0); PLATELET 227 x1000/uL (130-400); RED BLOOD CELL COUNT 4.37 mill/uL (4.2-5.4); RED CELL DISTRIBUTION WIDTH 13.7 % (11.6-14.6)
[2018-07-19 07:33] LABS: CLARITY URINE CLEAR (CLEAR); COLOR URINE YELLOW (YELLOW); KETONES URINE NEGATIVE (NEGATIVE); LEUKOCYTE ESTERASE URINE NEGATIVE (NEGATIVE); NITRITE URINE NEGATIVE (NEGATIVE); OCCULT BLOOD URINE NEGATIVE (NEGATIVE); PH URINE 6.5 (4.5-8.0); PROTEIN URINE NEGATIVE (NEGATIVE); SPECIFIC GRAVITY URINE 1.013 (1.005-1.030); UROBILINOGEN URINE 0.2 E.U./dL (0.2-1.0)
[2018-07-19] MEDS ORDERED: LORAZEPAM 2MG/ML CPJ IV ONE (07:45)
[2018-07-19] MEDS ORDERED: IOHEXOL-300 100 ML BOTTLE ONE (09:05)
[2018-07-19 09:12] VITALS: BP 106/64
== END 2018-07-19 10:23 | disposition home or self-care (01) ==
LOC: ER 18:57
DX: R10.32 Left lower quadrant pain (principal); R51 Headache; F41.9 Anxiety disorder, unspecified; H53.8 Other visual disturbances; J45.909 Unspecified asthma, uncomplicated; D64.9 Anemia, unspecified; Z88.5 Allergy status to narcotic agent; Z88.1 Allergy status to other antibiotic agents; Z79.899 Other long term (current) drug therapy
CPT/HCPCS: 36415; 70450; 74177; 80053; 81003; 81025; 83690; 85025; 96374; 99284; J1885; J2060; J2270; J2405; Q9967

== ENCOUNTER 2018-08-31 14:13 | Emergency (ER) | payer MEDICARE, MEDICAID ==
[~2018-08-31] VITALS: Ht 160 cm; Wt 45.0 kg
[2018-08-31 14:19] VITALS: BP 106/69
[2018-08-31] MEDS ORDERED: ONDANSETRON 4MG ODT PO STA (14:42)
[2018-08-31] MEDS ORDERED: KETOROLAC 30MG/ML VIAL IV STA (14:42)
[2018-08-31] MEDS ORDERED: MAGNESIUM/ALUMINUM HYDROXIDE/SIMETHICONE 30ML UDC PO STA (14:42)
[2018-08-31 15:21] LABS: CHLORIDE 108 mEq/L (98-107); EOSINOPHILS % 4.8 % (0.0-5.0); HEMOGLOBIN. 12.4 g/dL (12.0-16.0); LYMPHOCYTES % 28.1 % (20.0-50.0); MEAN CORPUSCULAR HEMOGLOBIN 30.6 pg (28.0-32.0); MEAN PLATELET VOLUME 9.5 fl (7.4-10.4); MONOCYTES % 6.1 % (2.0-8.0); PLATELET 194 x1000/uL (130-400); RED BLOOD CELL COUNT 4.07 mill/uL (4.2-5.4); RED CELL DISTRIBUTION WIDTH 13.7 % (11.6-14.6)
[2018-08-31 15:24] LABS: PROTHROMBIN TIME 10.5 sec (9.6-11.0)
[2018-08-31 15:37] LABS: HCG SCREEN NEGATIVE
[2018-08-31] MEDS ORDERED: ACETAMINOPHEN 325MG TABLET PO ONE (15:45)
[2018-08-31 16:44] LABS: CLARITY URINE CLEAR (CLEAR); COLOR URINE YELLOW (YELLOW); KETONES URINE NEGATIVE (NEGATIVE); LEUKOCYTE ESTERASE URINE TRACE (NEGATIVE); NITRITE URINE NEGATIVE (NEGATIVE); OCCULT BLOOD URINE TRACE (NEGATIVE); PH URINE 6.5 (4.5-8.0); PROTEIN URINE NEGATIVE (NEGATIVE); SPECIFIC GRAVITY URINE 1.011 (1.005-1.030); UROBILINOGEN URINE 0.2 E.U./dL (0.2-1.0)
[2018-08-31 16:55] LABS: *AMPHETAMINES SCREEN URINE NEGATIVE (NEGATIVE); *BARBITURATES SCREEN URINE NEGATIVE (NEGATIVE); CANNABINOID URINE SCREEN NEGATIVE (NEGATIVE)
[2018-08-31 16:56] LABS: *BENZODIAZEPINES SCREEN URINE NEGATIVE (NEGATIVE); *COCAINE SCREEN URINE NEGATIVE (NEGATIVE); METHADONE URINE SCREEN NEGATIVE (NEGATIVE); OPIATES URINE SCREEN NEGATIVE (NEGATIVE); PHENCYCLIDINE URINE SCREEN NEGATIVE (NEGATIVE)
== END 2018-08-31 17:38 | disposition home or self-care (01) ==
LOC: ER 14:13
DX: R10.13 Epigastric pain (principal); S76.112A Strain of left quadriceps muscle, fascia and tendon, initial encounter; R20.2 Paresthesia of skin; R42 Dizziness and giddiness; F41.9 Anxiety disorder, unspecified; J45.909 Unspecified asthma, uncomplicated; D57.3 Sickle-cell trait; Z88.5 Allergy status to narcotic agent; Z88.3 Allergy status to other anti-infective agents; Z88.8 Allergy status to other drugs, medicaments and biological substances; X58.XXXA Exposure to other specified factors, initial encounter; Y93.89 Activity, other specified; Y92.018 Other place in single-family (private) house as the place of occurrence of the external cause
CPT/HCPCS: 36415; 71045; 80053; 80305; 81003; 83690; 84703; 85025; 85610; 93005; 99284; J1885; Q0162

== ENCOUNTER 2018-10-12 15:10 | Emergency (ER) | payer MEDICARE, MEDICAID ==
[~2018-10-12] VITALS: Ht 165.1 cm; Wt 59.0 kg
[2018-10-12] MEDS ORDERED: DIPHENHYDRAMINE 50MG/ML VIAL IV ONE (20:15)
[2018-10-12] MEDS ORDERED: SODIUM CHLORIDE 0.9% 1,000 ML IV ONE (20:15)
[2018-10-12] MEDS ORDERED: METOCLOPRAMIDE HCL 10MG/2ML VIAL IV ONE (20:15)
[2018-10-12 20:45] LABS: BASOPHILS % 0.9 % (0.0-2.0); EOSINOPHILS % 4.9 % (0.0-5.0); HEMATOCRIT. 37.1 % (36.0-48.0); HEMOGLOBIN. 12.6 g/dL (12.0-16.0); LYMPHOCYTES % 39.8 % (20.0-50.0); MEAN CORPUSCULAR HEMOGLOBIN 30.8 pg (28.0-32.0); MEAN CORPUSCULAR VOLUME 90.5 fL (81.0-99.0); MEAN PLATELET VOLUME 9.7 fl (7.4-10.4); MONOCYTES % 7.6 % (2.0-8.0); NEUTROPHILS % 46.8 % (40.0-76.0); PLATELET 199 x1000/uL (130-400); RED BLOOD CELL COUNT 4.09 mill/uL (4.2-5.4); RED CELL DISTRIBUTION WIDTH 13.6 % (11.6-14.6)
[2018-10-12 20:46] LABS: CHLORIDE 107 mEq/L (98-107)
[2018-10-12] MEDS ORDERED: ONDANSETRON HCL 4MG/2ML INJ IV ONE (21:15)
[2018-10-12 22:46] VITALS: BP 92/53
== END 2018-10-12 23:36 | disposition home or self-care (01) ==
LOC: ER 15:10
DX: R10.84 Generalized abdominal pain (principal); R51 Headache; M79.603 Pain in arm, unspecified; M79.606 Pain in leg, unspecified; D64.9 Anemia, unspecified; J45.909 Unspecified asthma, uncomplicated; Z88.1 Allergy status to other antibiotic agents; Z88.5 Allergy status to narcotic agent; Z88.8 Allergy status to other drugs, medicaments and biological substances; Z79.899 Other long term (current) drug therapy
CPT/HCPCS: 36415; 71045; 80053; 83690; 83880; 84484; 85025; 93005; 96374; 96375; 99284; J1200; J2405; J2765; J7030

== ENCOUNTER 2018-12-09 19:42 | Emergency (ER) | payer MEDICARE, MEDICAID ==
[~2018-12-09] VITALS: Ht 160 cm; Wt 43.0 kg
[2018-12-09] MEDS ORDERED: ACETAMINOPHEN 325MG TABLET PO ONE (22:00)
[2018-12-09] MEDS ORDERED: FAMOTIDINE 20MG TABLET PO ONE (23:00)
[2018-12-09] MEDS ORDERED: KETOROLAC 60MG/2ML VIAL IM ONE (23:00)
[2018-12-09] MEDS ORDERED: DEXAMETHASONE 4MG TABLET PO ONE (23:00)
[2018-12-09] MEDS ORDERED: MAGNESIUM/ALUMINUM HYDROXIDE/SIMETHICONE 30ML UDC PO ONE (23:00)
[2018-12-09] MEDS ORDERED: ONDANSETRON 4MG ODT PO ONE (23:00)
[2018-12-09 23:23] LABS: CLARITY URINE CLEAR (CLEAR); COLOR URINE YELLOW (YELLOW); KETONES URINE NEGATIVE (NEGATIVE); LEUKOCYTE ESTERASE URINE 2+ (NEGATIVE); NITRITE URINE NEGATIVE (NEGATIVE); OCCULT BLOOD URINE 1+ (NEGATIVE); PH URINE 6.5 (4.5-8.0); PROTEIN URINE NEGATIVE (NEGATIVE); SPECIFIC GRAVITY URINE 1.014 (1.005-1.030); UROBILINOGEN URINE 0.2 E.U./dL (0.2-1.0)
[2018-12-09 23:39] LABS: BASOPHILS % 0.5 % (0.0-2.0); EOSINOPHILS % 4.6 % (0.0-5.0); LYMPHOCYTES % 32.7 % (20.0-50.0); MEAN CORPUSCULAR HEMOGLOBIN 31.3 pg (28.0-32.0); MEAN CORPUSCULAR VOLUME 91.9 fL (81.0-99.0); MEAN PLATELET VOLUME 9.7 fl (7.4-10.4); NEUTROPHILS % 54.2 % (40.0-76.0); PLATELET 198 x1000/uL (130-400); RED BLOOD CELL COUNT 4.14 mill/uL (4.2-5.4); RED CELL DISTRIBUTION WIDTH 13.5 % (11.6-14.6)
[2018-12-09 23:45] LABS: CHLORIDE 105 mEq/L (98-107)
[2018-12-10 01:59] VITALS: BP 95/57
== END 2018-12-10 02:03 | disposition home or self-care (01) ==
LOC: ER 23:36
DX: N39.0 Urinary tract infection, site not specified (principal); D57.1 Sickle-cell disease without crisis; F41.9 Anxiety disorder, unspecified; J45.909 Unspecified asthma, uncomplicated; Z88.3 Allergy status to other anti-infective agents; Z88.5 Allergy status to narcotic agent
CPT/HCPCS: 36415; 80053; 81003; 83690; 85025; 96372; 99284; J1885; J8540; Q0162

== ENCOUNTER 2018-12-23 19:18 | Emergency (ER) | payer MEDICARE, MEDICAID ==
[~2018-12-23] VITALS: Ht 152.4 cm; Wt 44.2 kg
[2018-12-23] MEDS ORDERED: SODIUM CHLORIDE 0.9% 1,000 ML IV ONE (23:00)
[2018-12-23 23:09] LABS: HEMATOCRIT 39.2 % (36.0-48.0); HEMOGLOBIN 13.3 g/dL (12.0-16.0); MEAN CORPUSCULAR HEMOGLOBIN 31.2 pg (28.0-32.0); MEAN CORPUSCULAR VOLUME 91.8 fL (81.0-99.0); PLATELET 201 x1000/uL (130-400); RED BLOOD CELL COUNT 4.27 mill/uL (4.2-5.4); RED CELL DISTRIBUTION WIDTH 13.6 % (11.6-14.6)
[2018-12-23 23:15] LABS: CHLORIDE 109 mEq/L (98-107)
[2018-12-24 00:45] LABS: CLARITY URINE CLEAR (CLEAR); COLOR URINE YELLOW (YELLOW); KETONES URINE NEGATIVE (NEGATIVE); LEUKOCYTE ESTERASE URINE NEGATIVE (NEGATIVE); NITRITE URINE NEGATIVE (NEGATIVE); OCCULT BLOOD URINE TRACE (NEGATIVE); PROTEIN URINE NEGATIVE (NEGATIVE); SPECIFIC GRAVITY URINE 1.014 (1.005-1.030); UROBILINOGEN URINE 0.2 E.U./dL (0.2-1.0)
[2018-12-24] MEDS ORDERED: KETOROLAC 30MG/ML VIAL IV ONE (00:45)
[2018-12-24 02:33] VITALS: BP 115/69
== END 2018-12-24 02:37 | disposition home or self-care (01) ==
LOC: ER 19:18
DX: M25.562 Pain in left knee (principal); F41.9 Anxiety disorder, unspecified; D57.1 Sickle-cell disease without crisis; J45.909 Unspecified asthma, uncomplicated; Z88.3 Allergy status to other anti-infective agents; Z88.5 Allergy status to narcotic agent; Z88.8 Allergy status to other drugs, medicaments and biological substances
CPT/HCPCS: 36415; 73562; 80053; 81003; 85027; 85044; 93971; 96361; 96374; 99284; J1885; J7030

== ENCOUNTER 2019-01-13 08:09 | Emergency (ER) | payer MEDICARE, MEDICAID ==
[~2019-01-13] VITALS: Ht 167.6 cm; Wt 100.0 kg
[2019-01-13] MEDS ORDERED: SODIUM CHLORIDE 0.9% 1,000 ML IV ONE (08:42)
[2019-01-13] MEDS ORDERED: ALBUTEROL (0.083%) 2.5MG/3ML NEB HHN STA (08:49)
[2019-01-13] MEDS ORDERED: IPRATROPIUM BROMIDE (0.02%) 0.5MG/2.5ML NEB HHN STA (08:49)
[2019-01-13] MEDS ORDERED: ONDANSETRON HCL 4MG/2ML INJ IV ONE (09:00)
[2019-01-13 09:03] LABS: BASOPHILS % 0.6 % (0.0-2.0); EOSINOPHILS % 11.6 % (0.0-5.0); HEMOGLOBIN. 12.8 g/dL (12.0-16.0); MEAN CORPUSCULAR HEMOGLOBIN 31.2 pg (28.0-32.0); MEAN CORPUSCULAR VOLUME 92.1 fL (81.0-99.0); MEAN PLATELET VOLUME 9.5 fl (7.4-10.4); MONOCYTES % 5.1 % (2.0-8.0); NEUTROPHILS % 67.7 % (40.0-76.0); PLATELET 199 x1000/uL (130-400); RED BLOOD CELL COUNT 4.12 mill/uL (4.2-5.4); RED CELL DISTRIBUTION WIDTH 13.1 % (11.6-14.6)
[2019-01-13 09:05] LABS: CHLORIDE 107 mEq/L (98-107)
[2019-01-13 09:09] LABS: ETHANOL BLOOD < 10 mg/dL
[2019-01-13 09:24] LABS: HCG SCREEN INDETERMINATE
[2019-01-13] MEDS ORDERED: LORAZEPAM 0.5MG TABLET PO ONE (10:45)
[2019-01-13 11:02] LABS: *AMPHETAMINES SCREEN URINE NEGATIVE (NEGATIVE); *BARBITURATES SCREEN URINE NEGATIVE (NEGATIVE); *BENZODIAZEPINES SCREEN URINE NEGATIVE (NEGATIVE); *COCAINE SCREEN URINE NEGATIVE (NEGATIVE); METHADONE URINE SCREEN NEGATIVE (NEGATIVE); OPIATES URINE SCREEN NEGATIVE (NEGATIVE)
[2019-01-13 11:03] LABS: CANNABINOID URINE SCREEN NEGATIVE (NEGATIVE); PHENCYCLIDINE URINE SCREEN NEGATIVE (NEGATIVE)
[2019-01-13 14:04] VITALS: BP 111/83
== END 2019-01-13 14:00 | disposition home or self-care (01) ==
LOC: ER 08:09
DX: J45.901 Unspecified asthma with (acute) exacerbation (principal); R11.10 Vomiting, unspecified; R10.9 Unspecified abdominal pain; D64.9 Anemia, unspecified; F41.9 Anxiety disorder, unspecified; Z88.5 Allergy status to narcotic agent; Z88.6 Allergy status to analgesic agent
CPT/HCPCS: 36415; 71045; 80053; 80305; 80320; 81025; 83880; 84484; 84703; 85025; 93005; 94640; 96361; 96374; 99284; J2405; J7030; J7611; G0480

== ENCOUNTER 2019-01-23 13:41 | Emergency (ER) | payer MEDICARE, MEDICAID ==
[~2019-01-23] VITALS: Ht 157.5 cm; Wt 44.0 kg
[2019-01-23] MEDS ORDERED: SODIUM CHLORIDE 0.9% 1,000 ML IV ONE (16:03)
[2019-01-23] MEDS ORDERED: KETOROLAC 30MG/ML VIAL IV STA (16:03)
[2019-01-23] MEDS ORDERED: FAMOTIDINE 20MG/2ML VIAL IV STA (16:03)
[2019-01-23] MEDS ORDERED: VISCOUS LIDOCAINE 2% 15 ML UDC PO STA (16:03)
[2019-01-23] MEDS ORDERED: MAGNESIUM/ALUMINUM HYDROXIDE/SIMETHICONE 30ML UDC PO STA (16:03)
[2019-01-23] MEDS ORDERED: METOCLOPRAMIDE HCL 10MG/2ML VIAL IV ONE (16:15)
[2019-01-23] MEDS ORDERED: DIPHENHYDRAMINE 50MG/ML VIAL IV ONE (16:15)
[2019-01-23 16:20] LABS: BASOPHILS % 0.6 % (0.0-2.0); EOSINOPHILS % 10.2 % (0.0-5.0); HEMATOCRIT. 39.8 % (36.0-48.0); HEMOGLOBIN. 13.4 g/dL (12.0-16.0); MEAN CORPUSCULAR HEMOGLOBIN 30.7 pg (28.0-32.0); MEAN CORPUSCULAR VOLUME 91.7 fL (81.0-99.0); MEAN PLATELET VOLUME 9.6 fl (7.4-10.4); MONOCYTES % 6.8 % (2.0-8.0); NEUTROPHILS % 55.4 % (40.0-76.0); PLATELET 270 x1000/uL (130-400); RED BLOOD CELL COUNT 4.35 mill/uL (4.2-5.4); RED CELL DISTRIBUTION WIDTH 13.1 % (11.6-14.6)
[2019-01-23 16:26] LABS: CHLORIDE 106 mEq/L (98-107)
[2019-01-23 16:28] LABS: PROTHROMBIN TIME 10.3 sec (9.6-11.0)
[2019-01-23 16:31] LABS: ETHANOL BLOOD < 10 mg/dL
[2019-01-23 16:40] LABS: CLARITY URINE CLEAR (CLEAR); COLOR URINE YELLOW (YELLOW); KETONES URINE NEGATIVE (NEGATIVE); LEUKOCYTE ESTERASE URINE TRACE (NEGATIVE); NITRITE URINE NEGATIVE (NEGATIVE); OCCULT BLOOD URINE NEGATIVE (NEGATIVE); PH URINE 7.5 (4.5-8.0); PROTEIN URINE NEGATIVE (NEGATIVE); SPECIFIC GRAVITY URINE 1.011 (1.005-1.030); UROBILINOGEN URINE 0.2 E.U./dL (0.2-1.0)
[2019-01-23] MEDS: PROCHLORPERAZINE 10MG/2ML VIAL IV NR ×3 (18:03→18:48)
[2019-01-23 18:52] VITALS: BP 11/57
[2019-01-24 10:35] LABS: *BARBITURATES SCREEN URINE NEGATIVE (NEGATIVE); *BENZODIAZEPINES SCREEN URINE NEGATIVE (NEGATIVE); *COCAINE SCREEN URINE NEGATIVE (NEGATIVE); METHADONE URINE SCREEN NEGATIVE (NEGATIVE)
[2019-01-24 10:36] LABS: *AMPHETAMINES SCREEN URINE NEGATIVE (NEGATIVE); CANNABINOID URINE SCREEN NEGATIVE (NEGATIVE); OPIATES URINE SCREEN NEGATIVE (NEGATIVE); PHENCYCLIDINE URINE SCREEN NEGATIVE (NEGATIVE)
== END 2019-01-23 18:55 | disposition home or self-care (01) ==
LOC: ER 15:31
DX: R10.13 Epigastric pain (principal); R51 Headache; D57.3 Sickle-cell trait; R42 Dizziness and giddiness; R53.83 Other fatigue; R11.0 Nausea
CPT/HCPCS: 36415; 80053; 80305; 80320; 81003; 81025; 83690; 85025; 85610; 93005; 96361; 96374; 96375; 96376; 99284; J0780; J1200; J1885; J3490; J7030; J2765; G0480

== ENCOUNTER 2019-03-08 11:37 | Emergency (ER) | payer MEDICARE, MEDICAID ==
[~2019-03-08] VITALS: Ht 160 cm; Wt 53.0 kg
[2019-03-08] MEDS ORDERED: MAGNESIUM/ALUMINUM HYDROXIDE/SIMETHICONE 30ML UDC PO ONE (12:30)
[2019-03-08] MEDS ORDERED: ASPIRIN 81MG TABLET PO ONE (12:30)
[2019-03-08] MEDS ORDERED: NITROGLYCERIN 0.4MG TABLET SL SL PRN (12:30)
[2019-03-08 14:03] LABS: BASOPHILS % 1.1 % (0.0-2.0); EOSINOPHILS % 14.3 % (0.0-5.0); HEMATOCRIT. 37.5 % (36.0-48.0); HEMOGLOBIN. 12.8 g/dL (12.0-16.0); LYMPHOCYTES % 27.8 % (20.0-50.0); MEAN CORPUSCULAR HEMOGLOBIN 30.7 pg (28.0-32.0); MEAN CORPUSCULAR VOLUME 90.2 fL (81.0-99.0); MEAN PLATELET VOLUME 9.5 fl (7.4-10.4); MONOCYTES % 5.4 % (2.0-8.0); NEUTROPHILS % 51.4 % (40.0-76.0); PLATELET 241 x1000/uL (130-400); RED BLOOD CELL COUNT 4.16 mill/uL (4.2-5.4); RED CELL DISTRIBUTION WIDTH 13.5 % (11.6-14.6)
[2019-03-08 14:10] LABS: CHLORIDE 106 mEq/L (98-107)
[2019-03-08 14:13] LABS: D-DIMER 0.28 mg/L FEU (<0.50); PARTIAL THROMBOPLASTIN TIME 27.2 sec (23.4-31.0); PROTHROMBIN TIME 10.7 sec (9.6-11.0)
[2019-03-08 14:41] LABS: HCG SCREEN INDETERMINATE
[2019-03-08 14:58] LABS: CLARITY URINE CLEAR (CLEAR); COLOR URINE YELLOW (YELLOW); KETONES URINE NEGATIVE (NEGATIVE); LEUKOCYTE ESTERASE URINE 2+ (NEGATIVE); NITRITE URINE NEGATIVE (NEGATIVE); OCCULT BLOOD URINE NEGATIVE (NEGATIVE); PH URINE 8.5 (4.5-8.0); PROTEIN URINE NEGATIVE (NEGATIVE); SPECIFIC GRAVITY URINE 1.009 (1.005-1.030); UROBILINOGEN URINE 0.2 E.U./dL (0.2-1.0)
[2019-03-08] MEDS ORDERED: ONDANSETRON HCL 4MG/2ML INJ IV ONE (17:30)
[2019-03-08] MEDS ORDERED: ONDANSETRON 4MG ODT PO ONE (18:45)
[2019-03-08 19:34] LABS: B-HCG QUANTITATIVE 4 mIU/mL (<3)
[2019-03-08 19:35] VITALS: BP 110/67
== END 2019-03-08 20:18 | disposition home or self-care (01) ==
LOC: ER 11:37 → CANBEDREQ 20:24
DX: R10.13 Epigastric pain (principal); R07.9 Chest pain, unspecified; J45.909 Unspecified asthma, uncomplicated; Z88.5 Allergy status to narcotic agent; Z88.1 Allergy status to other antibiotic agents; Z79.899 Other long term (current) drug therapy; Z86.2 Personal history of diseases of the blood and blood-forming organs and certain disorders involving the immune mechanism
CPT/HCPCS: 36415; 71045; 76700; 76830; 76856; 80053; 81003; 83690; 83880; 84484; 84702; 84703; 85025; 85379; 85610; 85730; 93005; 93970; 99284; J2405; Q0162

== ENCOUNTER 2019-06-13 10:59 | Inpatient (IN) | payer MEDICARE, MEDICAID ==
[~2019-06-13] VITALS: Ht 160 cm; Wt 45.4 kg
[2019-06-13] MEDS ORDERED: ALBUTEROL (0.083%) 2.5MG/3ML NEB HHN STA (15:39)
[2019-06-13] MEDS ORDERED: IBUPROFEN 600MG TABLET PO STA (15:39)
[2019-06-13] MEDS ORDERED: IPRATROPIUM BROMIDE (0.02%) 0.5MG/2.5ML NEB HHN STA (15:39)
[2019-06-13] MEDS ORDERED: SODIUM CHLORIDE 0.9% 1,000 ML IV ONE (15:39)
[2019-06-13] MEDS ORDERED: LEVOFLOXACIN 750MG PREMIX 150 ML IV ONE (16:15)
[2019-06-13 16:24] LABS: CHLORIDE 107 mEq/L (98-107)
[2019-06-13 16:26] LABS: HEMATOCRIT. 33.2 % (36.0-48.0); HEMOGLOBIN. 11.2 g/dL (12.0-16.0); MEAN CORPUSCULAR HEMOGLOBIN 29.8 pg (28.0-32.0); MEAN CORPUSCULAR VOLUME 87.8 fL (81.0-99.0); MEAN PLATELET VOLUME 8.8 fl (7.4-10.4); PLATELET 325 x1000/uL (130-400); RED BLOOD CELL COUNT 3.78 mill/uL (4.2-5.4); RED CELL DISTRIBUTION WIDTH 14.4 % (11.6-14.6)
[2019-06-13 16:29] LABS: HCG SCREEN NEGATIVE
[2019-06-13] MEDS ORDERED: SODIUM CHLORIDE 0.9% 1000ML BAG (SEPSIS BOLUS) IV ONE (16:45)
[2019-06-13] MEDS ORDERED: DIPHENHYDRAMINE 50MG/ML VIAL IV PRN (17:30)
[2019-06-13] MEDS ORDERED: CLONIDINE 0.1MG TABLET PO PRN (17:30)
[2019-06-13 17:33] LABS: PLATELET ESTIMATE NORMAL
[2019-06-13 18:22] LABS: PHOSPHORUS 2.6 mg/dL (2.5-4.9)
[2019-06-13] MEDS ORDERED: LORA-249 (21:51)
[2019-06-13 23:00] VITALS: BP 104/69
[2019-06-13] MEDS: ACETAMINOPHEN 325MG TABLET PO PRN (23:02)
[2019-06-14] MEDS ORDERED: LORAZEPAM 0.5MG TABLET PO PRN (05:15)
[2019-06-14] MEDS: IPRATROPIUM/ALBUTEROL 0.5-3(2.5)MG/3ML NEB HHN PRN ×2 (05:15→11:02)
[2019-06-14] MEDS ORDERED: VANCOMYCIN 1 G PREMIX 200 ML IV SCH (06:00)
[2019-06-14] MEDS: METRONIDAZOLE 500 MG PREMIX 100 ML IV SCH ×3 (06:05→22:32)
[2019-06-14] MEDS: SODIUM CHLORIDE 0.9% 1,000 ML IV SCH (06:07)
[2019-06-14 07:49] LABS: CHLORIDE 110 mEq/L (98-107)
[2019-06-14 08:00] VITALS: BP 106/70
[2019-06-14 08:00] LABS: LDL CHOLESTEROL 70 mg/dL (5-100)
[2019-06-14 08:02] LABS: HDL CHOLESTEROL 61 mg/dL (40-59)
[2019-06-14] MEDS: ACETAMINOPHEN 325MG TABLET PO PRN ×2 (09:22→16:54)
[2019-06-14 12:00] VITALS: BP 103/60
[2019-06-14] MEDS ORDERED: D-ME473S8 MT (12:05)
[2019-06-14] MEDS ORDERED: ALBUL MT (12:05)
[2019-06-14] MEDS ORDERED: LISI-186 PO (12:05)
[2019-06-14] MEDS ORDERED: IBUP-2030 PO (12:05)
[2019-06-14] MEDS ORDERED: METH-375 PO (12:05)
[2019-06-14] MEDS ORDERED: TOPUD PO (12:05)
[2019-06-14 12:42] LABS: CLARITY URINE CLEAR (CLEAR); COLOR URINE YELLOW (YELLOW); KETONES URINE NEGATIVE (NEGATIVE); LEUKOCYTE ESTERASE URINE NEGATIVE (NEGATIVE); NITRITE URINE NEGATIVE (NEGATIVE); OCCULT BLOOD URINE NEGATIVE (NEGATIVE); PROTEIN URINE NEGATIVE (NEGATIVE); SPECIFIC GRAVITY URINE 1.006 (1.005-1.030); UROBILINOGEN URINE 0.2 E.U./dL (0.2-1.0)
[2019-06-14] MEDS ORDERED: VANCOMYCIN HCL 750 MG in DEXT 5% WATER 250 ML IV SCH (14:00)
[2019-06-14] MEDS: GUAIFENESIN-DM 200MG-20MG/10ML UDC PO PRN (14:13)
[2019-06-14 16:00] VITALS: BP 92/47
[2019-06-14] MEDS: VANCOMYCIN 750 MG PREMIX 150 ML IV SCH (16:54)
[2019-06-14 20:00] VITALS: BP 91/58
[2019-06-14] MEDS ORDERED: LEVOFLOXACIN 500MG PREMIX 100 ML IV SCH (20:00)
[2019-06-14] MEDS: LEVOFLOXACIN 500MG PREMIX 100 ML IV SCH (21:45)
[2019-06-15] VITALS: BP 91/56
[2019-06-15] MEDS: GUAIFENESIN-DM 200MG-20MG/10ML UDC PO PRN ×2 (01:08→20:45)
[2019-06-15] MEDS: HYDROMORPHONE HCL/PF 2MG/ML CPJ IV PRN ×3 (01:09→18:00)
[2019-06-15] MEDS: VANCOMYCIN 750 MG PREMIX 150 ML IV SCH ×2 (01:10→06:39)
[2019-06-15 04:00] VITALS: BP 83/50
[2019-06-15] MEDS: METRONIDAZOLE 500 MG PREMIX 100 ML IV SCH ×3 (05:36→22:12)
[2019-06-15] MEDS: ACETAMINOPHEN 325MG TABLET PO PRN (06:40)
[2019-06-15 08:00] VITALS: BP 86/41
[2019-06-15] MEDS: SODIUM CHLORIDE 0.9% 1,000 ML IV SCH (09:51)
[2019-06-15] MEDS: ONDANSETRON HCL 4MG/2ML INJ IV PRN ×2 (11:53→17:58)
[2019-06-15] MEDS ORDERED: RACEPINEPHRINE 2.25% 0.5ML NEB VIAL HHN PRN (15:00)
[2019-06-15 16:00] VITALS: BP 104/57
[2019-06-15] MEDS: MONTELUKAST SODIUM 10MG TABLET PO SCH (16:07)
[2019-06-15] MEDS: VANCOMYCIN 500 MG PREMIX 100 ML IV SCH (16:07)
[2019-06-15 16:08] LABS: HEMATOCRIT. 32.4 % (36.0-48.0); HEMOGLOBIN. 11.2 g/dL (12.0-16.0); MEAN CORPUSCULAR HEMOGLOBIN 30.4 pg (28.0-32.0); MEAN CORPUSCULAR VOLUME 87.9 fL (81.0-99.0); MEAN PLATELET VOLUME 8.4 fl (7.4-10.4); PLATELET 330 x1000/uL (130-400); RED BLOOD CELL COUNT 3.68 mill/uL (4.2-5.4)
[2019-06-15] MEDS ORDERED: SODIUM CHLORIDE 10% FOR INH 15ML VIAL NEB INH NR (16:30)
[2019-06-15 17:04] LABS: CHLORIDE 104 mEq/L (98-107)
[2019-06-15 18:25] LABS: *AMPHETAMINES SCREEN URINE NEGATIVE (NEGATIVE); *BARBITURATES SCREEN URINE NEGATIVE (NEGATIVE); *BENZODIAZEPINES SCREEN URINE NEGATIVE (NEGATIVE); *COCAINE SCREEN URINE NEGATIVE (NEGATIVE)
[2019-06-15 18:26] LABS: CANNABINOID URINE SCREEN NEGATIVE (NEGATIVE); METHADONE URINE SCREEN NEGATIVE (NEGATIVE); OPIATES URINE SCREEN NEGATIVE (NEGATIVE); PHENCYCLIDINE URINE SCREEN NEGATIVE (NEGATIVE)
[2019-06-15 19:56] LABS: PLATELET ESTIMATE NORMAL
[2019-06-15 20:00] VITALS: BP 94/48
[2019-06-15] MEDS: LEVOFLOXACIN 500MG PREMIX 100 ML IV SCH (20:44)
[2019-06-15] MEDS: FAMOTIDINE 20MG TABLET PO SCH (20:45)
[2019-06-15] MEDS: IPRATROPIUM/ALBUTEROL 0.5-3(2.5)MG/3ML NEB HHN SCH (20:55)
[2019-06-16] VITALS: BP 95/55
[2019-06-16] MEDS: VANCOMYCIN 500 MG PREMIX 100 ML IV SCH ×3 (01:03→17:23)
[2019-06-16] MEDS: IPRATROPIUM/ALBUTEROL 0.5-3(2.5)MG/3ML NEB HHN SCH ×3 (01:20→13:00)
[2019-06-16] MEDS: HYDROMORPHONE HCL/PF 2MG/ML CPJ IV PRN ×3 (02:38→21:05)
[2019-06-16 04:00] VITALS: BP 90/48
[2019-06-16] MEDS: METRONIDAZOLE 500 MG PREMIX 100 ML IV SCH ×3 (05:20→23:51)
[2019-06-16 08:00] VITALS: BP 95/52
[2019-06-16] MEDS: ACETYLCYSTEINE 100MG/ML 10% VIAL 4ML INH SCH (08:00)
[2019-06-16] MEDS: FAMOTIDINE 20MG TABLET PO SCH ×2 (08:35→21:56)
[2019-06-16] MEDS: ONDANSETRON HCL 4MG/2ML INJ IV PRN ×2 (08:55→17:34)
[2019-06-16] MEDS: GUAIFENESIN-DM 200MG-20MG/10ML UDC PO PRN ×3 (11:16→23:58)
[2019-06-16 12:00] VITALS: BP 82/47
[2019-06-16] MEDS: SODIUM CHLORIDE 0.9% 1,000 ML IV SCH (14:27)
[2019-06-16 16:00] VITALS: BP 93/46
[2019-06-16 16:54] LABS: HEMATOCRIT. 28.6 % (36.0-48.0); HEMOGLOBIN. 9.7 g/dL (12.0-16.0); MEAN CORPUSCULAR HEMOGLOBIN 29.5 pg (28.0-32.0); MEAN CORPUSCULAR VOLUME 87.3 fL (81.0-99.0); MEAN PLATELET VOLUME 8.7 fl (7.4-10.4); PLATELET 280 x1000/uL (130-400); RED BLOOD CELL COUNT 3.27 mill/uL (4.2-5.4); RED CELL DISTRIBUTION WIDTH 13.9 % (11.6-14.6)
[2019-06-16] MEDS: MONTELUKAST SODIUM 10MG TABLET PO SCH (17:23)
[2019-06-16 17:59] LABS: CHLORIDE 105 mEq/L (98-107)
[2019-06-16 20:00] VITALS: BP 97/50
[2019-06-16 20:59] LABS: PLATELET ESTIMATE NORMAL
[2019-06-16] MEDS: LEVOFLOXACIN 500MG PREMIX 100 ML IV SCH (21:55)
[2019-06-17] VITALS: BP 92/50
[2019-06-17] MEDS: VANCOMYCIN 500 MG PREMIX 100 ML IV SCH ×3 (01:43→16:24)
[2019-06-17] MEDS: ACETAMINOPHEN 325MG TABLET PO PRN ×2 (01:53→13:43)
[2019-06-17] MEDS: IPRATROPIUM/ALBUTEROL 0.5-3(2.5)MG/3ML NEB HHN PRN ×3 (02:26→21:47)
[2019-06-17 04:00] VITALS: BP 93/54
[2019-06-17] MEDS: GUAIFENESIN-DM 200MG-20MG/10ML UDC PO PRN ×3 (04:11→21:20)
[2019-06-17] MEDS: HYDROMORPHONE HCL/PF 2MG/ML CPJ IV PRN ×4 (04:12→22:34)
[2019-06-17] MEDS: SODIUM CHLORIDE 0.9% 1,000 ML IV SCH (05:28)
[2019-06-17 07:29] LABS: HEMATOCRIT. 29.2 % (36.0-48.0); HEMOGLOBIN. 9.9 g/dL (12.0-16.0); MEAN CORPUSCULAR HEMOGLOBIN 29.7 pg (28.0-32.0); MEAN CORPUSCULAR VOLUME 87.2 fL (81.0-99.0); MEAN PLATELET VOLUME 9.2 fl (7.4-10.4); PLATELET 284 x1000/uL (130-400); RED BLOOD CELL COUNT 3.35 mill/uL (4.2-5.4); RED CELL DISTRIBUTION WIDTH 14.1 % (11.6-14.6)
[2019-06-17 07:47] LABS: CHLORIDE 106 mEq/L (98-107)
[2019-06-17 08:00] VITALS: BP 95/59
[2019-06-17] MEDS: FAMOTIDINE 20MG TABLET PO SCH ×2 (08:15→21:20)
[2019-06-17] MEDS: METRONIDAZOLE 500 MG PREMIX 100 ML IV SCH ×3 (08:16→22:35)
[2019-06-17] MEDS: ONDANSETRON HCL 4MG/2ML INJ IV PRN ×3 (10:45→22:35)
[2019-06-17 12:00] VITALS: BP 94/50
[2019-06-17 12:46] LABS: PLATELET ESTIMATE NORMAL
[2019-06-17 16:00] VITALS: BP 91/54
[2019-06-17] MEDS: MONTELUKAST SODIUM 10MG TABLET PO SCH (16:24)
[2019-06-17] MEDS: ACETYLCYSTEINE 100MG/ML 10% VIAL 4ML INH SCH ×2 (16:51→21:45)
[2019-06-17 20:00] VITALS: BP 93/34
[2019-06-17] MEDS: LEVOFLOXACIN 500MG PREMIX 100 ML IV SCH (21:20)
[2019-06-18] VITALS: BP 90/52
[2019-06-18] MEDS: SODIUM CHLORIDE 0.9% 1,000 ML IV SCH ×2 (00:27→16:54)
[2019-06-18] MEDS: VANCOMYCIN 500 MG PREMIX 100 ML IV SCH ×3 (00:27→16:58)
[2019-06-18] MEDS: IPRATROPIUM/ALBUTEROL 0.5-3(2.5)MG/3ML NEB HHN PRN ×5 (01:03→21:40)
[2019-06-18] MEDS: ACETYLCYSTEINE 100MG/ML 10% VIAL 4ML INH SCH ×4 (01:04→21:41)
[2019-06-18 04:00] VITALS: BP 91/45
[2019-06-18] MEDS: ONDANSETRON HCL 4MG/2ML INJ IV PRN ×4 (04:31→22:50)
[2019-06-18] MEDS: HYDROMORPHONE HCL/PF 2MG/ML CPJ IV PRN ×4 (04:31→22:50)
[2019-06-18] MEDS: METRONIDAZOLE 500 MG PREMIX 100 ML IV SCH ×3 (05:58→22:36)
[2019-06-18] MEDS: GUAIFENESIN-DM 200MG-20MG/10ML UDC PO PRN ×3 (06:00→21:24)
[2019-06-18 06:14] LABS: HEMATOCRIT. 27.6 % (36.0-48.0); HEMOGLOBIN. 9.6 g/dL (12.0-16.0); MEAN CORPUSCULAR HEMOGLOBIN 30.6 pg (28.0-32.0); MEAN CORPUSCULAR VOLUME 87.8 fL (81.0-99.0); MEAN PLATELET VOLUME 9.4 fl (7.4-10.4); PLATELET 298 x1000/uL (130-400); RED BLOOD CELL COUNT 3.15 mill/uL (4.2-5.4); RED CELL DISTRIBUTION WIDTH 14.1 % (11.6-14.6)
[2019-06-18 06:39] LABS: CHLORIDE 106 mEq/L (98-107)
[2019-06-18 08:00] VITALS: BP 92/50
[2019-06-18] MEDS: FAMOTIDINE 20MG TABLET PO SCH ×2 (08:27→21:24)
[2019-06-18 12:00] VITALS: BP 89/42
[2019-06-18] MEDS ORDERED: POLYETHYLENE GLYCOL 3350 (17GM) 1 DOSE PACK PO PRN (13:30)
[2019-06-18] MEDS: ACETAMINOPHEN 325MG TABLET PO PRN (14:26)
[2019-06-18 16:34] VITALS: BP 90/40
[2019-06-18] MEDS: BENZONATATE 200MG CAPSULE PO PRN (16:53)
[2019-06-18] MEDS: MONTELUKAST SODIUM 10MG TABLET PO SCH (16:53)
[2019-06-18 18:12] LABS: PLATELET ESTIMATE NORMAL
[2019-06-18 20:00] VITALS: BP_SYST 94; BP_SYST 96; BP_DIAS 45; BP_DIAS 57
[2019-06-18] MEDS: LEVOFLOXACIN 500MG PREMIX 100 ML IV SCH (21:24)
[2019-06-18] MEDS: PHENOL/SODIUM PHENOLATE 1.4% SRPAY 177ML MM PRN (22:49)
[2019-06-19] VITALS: BP 95/50
[2019-06-19] MEDS: VANCOMYCIN 500 MG PREMIX 100 ML IV SCH ×3 (01:08→16:44)
[2019-06-19 03:47] VITALS: BP 95/62
[2019-06-19] MEDS: GUAIFENESIN-DM 200MG-20MG/10ML UDC PO PRN (03:52)
[2019-06-19] MEDS: PHENOL/SODIUM PHENOLATE 1.4% SRPAY 177ML MM PRN (03:52)
[2019-06-19] MEDS: HYDROMORPHONE HCL/PF 2MG/ML CPJ IV PRN ×2 (04:59→12:50)
[2019-06-19] MEDS: BENZONATATE 200MG CAPSULE PO PRN (04:59)
[2019-06-19] MEDS: ONDANSETRON HCL 4MG/2ML INJ IV PRN ×3 (04:59→21:22)
[2019-06-19] MEDS: IPRATROPIUM/ALBUTEROL 0.5-3(2.5)MG/3ML NEB HHN PRN ×2 (05:03→07:48)
[2019-06-19] MEDS: METRONIDAZOLE 500 MG PREMIX 100 ML IV SCH ×3 (05:48→20:56)
[2019-06-19 06:33] LABS: HEMATOCRIT. 30.5 % (36.0-48.0); HEMOGLOBIN. 10.2 g/dL (12.0-16.0); MEAN CORPUSCULAR HEMOGLOBIN 29.5 pg (28.0-32.0); MEAN PLATELET VOLUME 8.7 fl (7.4-10.4); PLATELET 306 x1000/uL (130-400); RED BLOOD CELL COUNT 3.47 mill/uL (4.2-5.4); RED CELL DISTRIBUTION WIDTH 14.4 % (11.6-14.6)
[2019-06-19 06:51] LABS: CHLORIDE 104 mEq/L (98-107)
[2019-06-19] MEDS: ACETYLCYSTEINE 100MG/ML 10% VIAL 4ML INH SCH (07:42)
[2019-06-19 08:00] VITALS: BP 89/43
[2019-06-19] MEDS: FAMOTIDINE 20MG TABLET PO SCH ×2 (09:20→20:55)
[2019-06-19] MEDS: ACETAMINOPHEN 325MG TABLET PO PRN ×2 (10:08→20:56)
[2019-06-19 12:00] VITALS: BP 99/57
[2019-06-19] MEDS: BUDESONIDE 0.5MG/2ML NEB HHN SCH (12:50)
[2019-06-19] MEDS: PROMETHAZINE/DEXTROMETHORPHAN 6.25-15MG/5ML BOTTLE 120ML PO PRN (12:50)
[2019-06-19 16:00] VITALS: BP 95/56
[2019-06-19 16:27] LABS: PLATELET ESTIMATE NORMAL
[2019-06-19] MEDS: MONTELUKAST SODIUM 10MG TABLET PO SCH (16:44)
[2019-06-19] MEDS: LEVOFLOXACIN 500MG PREMIX 100 ML IV SCH (20:54)
[2019-06-19] MEDS: HYDROCODONE/ACETAMINOPHEN 5/325MG TABLET PO PRN (20:56)
[2019-06-20 00:16] VITALS: BP 101/54
[2019-06-20] MEDS: ACETAMINOPHEN 325MG TABLET PO PRN (00:55)
[2019-06-20] MEDS: PROMETHAZINE/DEXTROMETHORPHAN 6.25-15MG/5ML BOTTLE 120ML PO PRN ×2 (01:00→17:36)
[2019-06-20] MEDS: BUDESONIDE 0.5MG/2ML NEB HHN SCH ×3 (01:04→22:05)
[2019-06-20] MEDS: IPRATROPIUM/ALBUTEROL 0.5-3(2.5)MG/3ML NEB HHN PRN ×3 (01:05→22:06)
[2019-06-20] MEDS: VANCOMYCIN 500 MG PREMIX 100 ML IV SCH ×3 (03:40→18:12)
[2019-06-20 04:00] VITALS: BP 93/59
[2019-06-20 06:07] LABS: HEMATOCRIT. 30.3 % (36.0-48.0); HEMOGLOBIN. 10.2 g/dL (12.0-16.0); MEAN CORPUSCULAR HEMOGLOBIN 29.9 pg (28.0-32.0); MEAN CORPUSCULAR VOLUME 88.4 fL (81.0-99.0); PLATELET 316 x1000/uL (130-400); RED BLOOD CELL COUNT 3.43 mill/uL (4.2-5.4); RED CELL DISTRIBUTION WIDTH 14.6 % (11.6-14.6)
[2019-06-20 06:20] LABS: CHLORIDE 107 mEq/L (98-107)
[2019-06-20] MEDS: METRONIDAZOLE 500 MG PREMIX 100 ML IV SCH ×2 (06:55→13:24)
[2019-06-20 08:00] VITALS: BP 104/51
[2019-06-20] MEDS: FAMOTIDINE 20MG TABLET PO SCH ×2 (09:16→20:08)
[2019-06-20] MEDS: HYDROCODONE/ACETAMINOPHEN 5/325MG TABLET PO PRN (09:27)
[2019-06-20] MEDS: SODIUM CHLORIDE 0.9% 1,000 ML IV SCH ×2 (09:48→17:37)
[2019-06-20 12:00] VITALS: BP 95/49
[2019-06-20] MEDS: HYDROMORPHONE HCL/PF 2MG/ML CPJ IV PRN ×2 (13:20→22:07)
[2019-06-20] MEDS: DOXYCYCLINE 100 MG in DEXT 5% WATER 100 ML IV SCH (14:54)
[2019-06-20] MEDS: DIPHENHYDRAMINE 25MG CAPSULE PO PRN ×2 (15:47→20:42)
[2019-06-20 16:00] VITALS: BP 97/65
[2019-06-20 16:29] LABS: PLATELET ESTIMATE NORMAL
[2019-06-20] MEDS: MONTELUKAST SODIUM 10MG TABLET PO SCH (17:31)
[2019-06-20] MEDS: CEFTRIAXONE 2 G in DEXTROSE 5% WATER 50 ML IV SCH (18:12)
[2019-06-20 20:00] VITALS: BP 97/58
[2019-06-20] MEDS: ONDANSETRON HCL 4MG/2ML INJ IV PRN (20:07)
[2019-06-21] VITALS: BP 101/59
[2019-06-21] MEDS: ACETYLCYSTEINE 100MG/ML 10% VIAL 4ML INH SCH ×3 (01:12→14:11)
[2019-06-21] MEDS: IPRATROPIUM/ALBUTEROL 0.5-3(2.5)MG/3ML NEB HHN PRN ×2 (01:12→07:55)
[2019-06-21] MEDS: VANCOMYCIN 500 MG PREMIX 100 ML IV SCH ×2 (02:08→08:26)
[2019-06-21 04:00] VITALS: BP 98/54
[2019-06-21] MEDS: DOXYCYCLINE 100 MG in DEXT 5% WATER 100 ML IV SCH ×2 (05:33→18:03)
[2019-06-21] MEDS: PROMETHAZINE/DEXTROMETHORPHAN 6.25-15MG/5ML BOTTLE 120ML PO PRN (05:34)
[2019-06-21 05:50] LABS: HEMATOCRIT. 31.9 % (36.0-48.0); HEMOGLOBIN. 10.8 g/dL (12.0-16.0); MEAN CORPUSCULAR HEMOGLOBIN 29.8 pg (28.0-32.0); PLATELET 349 x1000/uL (130-400); RED BLOOD CELL COUNT 3.62 mill/uL (4.2-5.4); RED CELL DISTRIBUTION WIDTH 14.2 % (11.6-14.6)
[2019-06-21 06:08] LABS: CHLORIDE 105 mEq/L (98-107)
[2019-06-21] MEDS: ONDANSETRON HCL 4MG/2ML INJ IV PRN ×3 (06:46→19:48)
[2019-06-21] MEDS: HYDROMORPHONE HCL/PF 2MG/ML CPJ IV PRN ×3 (06:48→20:30)
[2019-06-21] MEDS: BUDESONIDE 0.5MG/2ML NEB HHN SCH ×2 (07:55→20:12)
[2019-06-21 08:00] VITALS: BP 94/59
[2019-06-21] MEDS: FAMOTIDINE 20MG TABLET PO SCH ×2 (08:26→22:17)
[2019-06-21] MEDS: DIPHENHYDRAMINE 25MG CAPSULE PO PRN ×2 (08:26→19:48)
[2019-06-21] MEDS: SODIUM CHLORIDE 0.9% 1,000 ML IV SCH ×2 (08:37→22:18)
[2019-06-21 12:17] VITALS: BP 105/70
[2019-06-21] MEDS: DIPHENHYDRAMINE 50MG/ML VIAL IV SCH ×2 (14:11→22:18)
[2019-06-21 16:32] VITALS: BP 99/59
[2019-06-21] MEDS: MONTELUKAST SODIUM 10MG TABLET PO SCH (16:45)
[2019-06-21] MEDS: CEFTRIAXONE 2 G in DEXTROSE 5% WATER 50 ML IV SCH (16:45)
[2019-06-21 17:13] LABS: PLATELET ESTIMATE NORMAL
[2019-06-21] MEDS: VANCOMYCIN 750 MG PREMIX 150 ML IV SCH (18:03)
[2019-06-21 20:00] VITALS: BP 99/53
[2019-06-22] MEDS: IPRATROPIUM/ALBUTEROL 0.5-3(2.5)MG/3ML NEB HHN PRN ×2 (00:47→13:06)
[2019-06-22] MEDS: ACETYLCYSTEINE 100MG/ML 10% VIAL 4ML INH SCH ×2 (00:47→13:06)
[2019-06-22] MEDS: VANCOMYCIN 750 MG PREMIX 150 ML IV SCH ×3 (02:41→18:18)
[2019-06-22] MEDS: DOXYCYCLINE 100 MG in DEXT 5% WATER 100 ML IV SCH ×3 (05:08→19:08)
[2019-06-22] MEDS: DIPHENHYDRAMINE 50MG/ML VIAL IV SCH ×3 (05:08→22:25)
[2019-06-22 05:10] LABS: HIV SCREEN 4G Non Reactive (Non Reactive)
[2019-06-22] MEDS: PROMETHAZINE/DEXTROMETHORPHAN 6.25-15MG/5ML BOTTLE 120ML PO PRN ×2 (05:38→20:43)
[2019-06-22] MEDS: ONDANSETRON HCL 4MG/2ML INJ IV PRN ×3 (05:38→20:32)
[2019-06-22 06:39] LABS: CHLORIDE 102 mEq/L (98-107)
[2019-06-22 06:41] LABS: BASOPHILS % 0.7 % (0.0-2.0); HEMATOCRIT. 30.6 % (36.0-48.0); HEMOGLOBIN. 10.5 g/dL (12.0-16.0); LYMPHOCYTES % 17.1 % (20.0-50.0); MEAN CORPUSCULAR VOLUME 87.6 fL (81.0-99.0); MONOCYTES % 8.5 % (2.0-8.0); NEUTROPHILS % 60.7 % (40.0-76.0); PLATELET 302 x1000/uL (130-400); RED BLOOD CELL COUNT 3.49 mill/uL (4.2-5.4); RED CELL DISTRIBUTION WIDTH 14.1 % (11.6-14.6)
[2019-06-22 08:00] VITALS: BP 97/59
[2019-06-22] MEDS: BUDESONIDE 0.5MG/2ML NEB HHN SCH (09:36)
[2019-06-22] MEDS: FAMOTIDINE 20MG TABLET PO SCH ×2 (10:46→20:38)
[2019-06-22] MEDS: HYDROMORPHONE HCL/PF 2MG/ML CPJ IV PRN ×2 (10:47→17:14)
[2019-06-22] MEDS ORDERED: VORICONAZOLE 200MG TABLET PO SCH (11:00)
[2019-06-22 12:00] VITALS: BP 99/60
[2019-06-22 16:00] VITALS: BP 108/78
[2019-06-22] MEDS: CEFTRIAXONE 2 G in DEXTROSE 5% WATER 50 ML IV SCH (17:14)
[2019-06-22] MEDS: MONTELUKAST SODIUM 10MG TABLET PO SCH (17:15)
[2019-06-22 20:00] VITALS: BP 86/51
[2019-06-22 20:05] VITALS: BP 89/44
[2019-06-22] MEDS: DIPHENHYDRAMINE 25MG CAPSULE PO PRN (20:38)
[2019-06-22] MEDS: SODIUM CHLORIDE 0.9% 1,000 ML IV SCH (20:39)
[2019-06-23] VITALS (7 sets, daily range): BP systolic 86–122; BP diastolic 47–96
[2019-06-23] MEDS: VANCOMYCIN 750 MG PREMIX 150 ML IV SCH ×3 (01:02→16:18)
[2019-06-23] MEDS: IPRATROPIUM/ALBUTEROL 0.5-3(2.5)MG/3ML NEB HHN PRN ×3 (01:13→16:20)
[2019-06-23] MEDS: ACETYLCYSTEINE 100MG/ML 10% VIAL 4ML INH SCH ×3 (01:13→16:20)
[2019-06-23] MEDS: HYDROMORPHONE HCL/PF 2MG/ML CPJ IV PRN ×3 (01:24→16:29)
[2019-06-23] MEDS: DOXYCYCLINE 100 MG in DEXT 5% WATER 100 ML IV SCH ×2 (06:00→18:52)
[2019-06-23] MEDS: DIPHENHYDRAMINE 50MG/ML VIAL IV SCH ×3 (06:00→21:47)
[2019-06-23] MEDS: ONDANSETRON HCL 4MG/2ML INJ IV PRN ×3 (06:11→20:25)
[2019-06-23 07:10] LABS: CHLORIDE 103 mEq/L (98-107)
[2019-06-23 07:15] LABS: BASOPHILS % 0.7 % (0.0-2.0); EOSINOPHILS % 12.2 % (0.0-5.0); HEMATOCRIT. 30.9 % (36.0-48.0); HEMOGLOBIN. 10.8 g/dL (12.0-16.0); LYMPHOCYTES % 16.3 % (20.0-50.0); MEAN CORPUSCULAR HEMOGLOBIN 30.5 pg (28.0-32.0); MEAN CORPUSCULAR VOLUME 87.5 fL (81.0-99.0); MEAN PLATELET VOLUME 9.1 fl (7.4-10.4); MONOCYTES % 9.1 % (2.0-8.0); NEUTROPHILS % 61.7 % (40.0-76.0); PLATELET 329 x1000/uL (130-400); RED BLOOD CELL COUNT 3.53 mill/uL (4.2-5.4); RED CELL DISTRIBUTION WIDTH 14.3 % (11.6-14.6)
[2019-06-23] MEDS ORDERED: VORICONAZOLE 200MG TABLET PO SCH (09:00)
[2019-06-23] MEDS: FAMOTIDINE 20MG TABLET PO SCH ×2 (09:14→20:13)
[2019-06-23] MEDS ORDERED: VORI200T3 MT (12:31)
[2019-06-23] MEDS ORDERED: HYDR-4005 MT (12:33)
[2019-06-23] MEDS ORDERED: PROM5SYR MT (12:34)
[2019-06-23] MEDS ORDERED: TUSSL MT (12:35)
[2019-06-23] MEDS: VORICONAZOLE 50MG TABLET PO SCH ×2 (13:03→20:13)
[2019-06-23] MEDS: VORICONAZOLE 200MG TABLET PO SCH ×2 (13:03→20:13)
[2019-06-23] MEDS: CEFTRIAXONE 2 G in DEXTROSE 5% WATER 50 ML IV SCH (15:22)
[2019-06-23] MEDS: MONTELUKAST SODIUM 10MG TABLET PO SCH (16:18)
[2019-06-23] MEDS: DIPHENHYDRAMINE 25MG CAPSULE PO PRN (20:13)
[2019-06-23] MEDS: PROMETHAZINE/DEXTROMETHORPHAN 6.25-15MG/5ML BOTTLE 120ML PO PRN (20:14)
[2019-06-23] MEDS: SODIUM CHLORIDE 0.9% 1,000 ML IV SCH (20:26)
[2019-06-23] MEDS: HYDROCODONE/ACETAMINOPHEN 5/325MG TABLET PO PRN (23:29)
[2019-06-24] VITALS (8 sets, daily range): BP systolic 84–99; BP diastolic 46–66
[2019-06-24] MEDS: VANCOMYCIN 750 MG PREMIX 150 ML IV SCH (01:14)
[2019-06-24] MEDS: ACETYLCYSTEINE 100MG/ML 10% VIAL 4ML INH SCH ×3 (02:58→15:13)
[2019-06-24] MEDS: IPRATROPIUM/ALBUTEROL 0.5-3(2.5)MG/3ML NEB HHN PRN ×3 (02:58→15:13)
[2019-06-24] MEDS: DIPHENHYDRAMINE 50MG/ML VIAL IV SCH ×2 (05:22→13:08)
[2019-06-24] MEDS: DOXYCYCLINE 100 MG in DEXT 5% WATER 100 ML IV SCH ×2 (05:23→18:00)
[2019-06-24] MEDS: ONDANSETRON HCL 4MG/2ML INJ IV PRN ×2 (05:30→13:18)
[2019-06-24] MEDS: HYDROMORPHONE HCL/PF 2MG/ML CPJ IV PRN (06:13)
[2019-06-24 07:07] LABS: BASOPHILS % 1.2 % (0.0-2.0); EOSINOPHILS % 13.1 % (0.0-5.0); HEMATOCRIT. 31.2 % (36.0-48.0); HEMOGLOBIN. 10.9 g/dL (12.0-16.0); LYMPHOCYTES % 24.4 % (20.0-50.0); MEAN CORPUSCULAR HEMOGLOBIN 30.7 pg (28.0-32.0); MEAN CORPUSCULAR VOLUME 87.8 fL (81.0-99.0); MONOCYTES % 9.7 % (2.0-8.0); NEUTROPHILS % 51.6 % (40.0-76.0); PLATELET 339 x1000/uL (130-400); RED BLOOD CELL COUNT 3.55 mill/uL (4.2-5.4); RED CELL DISTRIBUTION WIDTH 14.4 % (11.6-14.6)
[2019-06-24 07:17] LABS: CHLORIDE 105 mEq/L (98-107)
[2019-06-24] MEDS: SODIUM CHLORIDE 0.9% 1,000 ML IV SCH ×2 (08:21→10:11)
[2019-06-24] MEDS ORDERED: VORICONAZOLE 200MG TABLET PO SCH (09:00)
[2019-06-24] MEDS: FAMOTIDINE 20MG TABLET PO SCH (10:12)
[2019-06-24] MEDS ORDERED: VANCOMYCIN 750 MG PREMIX 150 ML IV SCH (13:00)
[2019-06-24] MEDS: CEFTRIAXONE 2 G in DEXTROSE 5% WATER 50 ML IV SCH (16:00)
[2019-06-24] MEDS: MONTELUKAST SODIUM 10MG TABLET PO SCH (17:00)
[2019-06-27] MEDS ORDERED: IPRATROPIUM/ALBUTEROL 0.5-3(2.5)MG/3ML NEB HHN SCH (22:00)
== END 2019-06-24 18:40 | disposition home or self-care (01) | DRG 871 ==
LOC: ER 10:59 → 6EST 17:19 → ENRESERV 21:34 → 7WST 06-16 20:50
PROVIDERS: ADMIT Internal Medicine; ATTEND Internal Medicine
DX: A41.9 Sepsis, unspecified organism (principal); J18.8 Other pneumonia, unspecified organism; J96.00 Acute respiratory failure, unspecified whether with hypoxia or hypercapnia; J85.0 Gangrene and necrosis of lung; D57.00 Hb-SS disease with crisis, unspecified; E87.2 Acidosis; B44.9 Aspergillosis, unspecified; D72.1 Eosinophilia; J45.909 Unspecified asthma, uncomplicated; F41.9 Anxiety disorder, unspecified; R91.8 Other nonspecific abnormal finding of lung field; J98.4 Other disorders of lung; L50.9 Urticaria, unspecified; Z88.6 Allergy status to analgesic agent; Z88.1 Allergy status to other antibiotic agents; Z88.8 Allergy status to other drugs, medicaments and biological substances
CPT/HCPCS: 36415; 71045; 71046; 71250; 80048; 80053; 80061; 80202; 80305; 81003; 83605; 83735; 83880; 84100; 84443; 84484; 84703; 85025; 85044; 86606; 86635; 87070; 87116; 87389; 87804; 93005; 93306; 93970; 94640; 99285; J0696; J1170; J1200; J1956; J2405; J3370; J3490; J7030; J7040; J7060; J7131; J7608; J7626; Q0163

== ENCOUNTER 2019-08-21 09:35 | Emergency (ER) | payer MEDICARE, MEDICAID ==
[~2019-08-21] VITALS: Ht 157.5 cm; Wt 42.1 kg
[~2019-08-21 09:35] MED LIST changes: +ALBUL MT; +D-ME473S8 MT; +HYDR-4005 MT; +IBUP-2030 PO; +LISI-186 PO; +LORA-249; +METH-375 PO; +TOPUD PO; +TUSSL MT; +VORI200T3 MT
[2019-08-21] MEDS ORDERED: ACETAMINOPHEN 325MG TABLET PO ONE (10:45)
[2019-08-21 11:12] LABS: CHLORIDE 104 mEq/L (98-107)
[2019-08-21 11:21] LABS: BASOPHILS % 0.6 % (0.0-2.0); EOSINOPHILS % 1.9 % (0.0-5.0); HEMATOCRIT. 39.2 % (36.0-48.0); HEMOGLOBIN. 13.2 g/dL (12.0-16.0); LYMPHOCYTES % 33.7 % (20.0-50.0); MEAN CORPUSCULAR HEMOGLOBIN 29.8 pg (28.0-32.0); MEAN CORPUSCULAR VOLUME 88.7 fL (81.0-99.0); MEAN PLATELET VOLUME 9.8 fl (7.4-10.4); MONOCYTES % 6.4 % (2.0-8.0); NEUTROPHILS % 57.4 % (40.0-76.0); PLATELET 262 x1000/uL (130-400); RED BLOOD CELL COUNT 4.42 mill/uL (4.2-5.4); RED CELL DISTRIBUTION WIDTH 14.4 % (11.6-14.6)
[2019-08-21 11:31] LABS: CLARITY URINE CLEAR (CLEAR); COLOR URINE YELLOW (YELLOW); KETONES URINE NEGATIVE (NEGATIVE); LEUKOCYTE ESTERASE URINE NEGATIVE (NEGATIVE); NITRITE URINE NEGATIVE (NEGATIVE); OCCULT BLOOD URINE NEGATIVE (NEGATIVE); PH URINE 5.5 (4.5-8.0); PROTEIN URINE NEGATIVE (NEGATIVE); SPECIFIC GRAVITY URINE 1.015 (1.005-1.030); UROBILINOGEN URINE 0.2 E.U./dL (0.2-1.0)
[2019-08-21] MEDS ORDERED: ONDANSETRON 4MG ODT PO STA (11:48)
[2019-08-21] MEDS ORDERED: VISCOUS LIDOCAINE 2% 15 ML UDC PO STA (11:48)
[2019-08-21] MEDS ORDERED: DICYCLOMINE 10 MG/5 ML ORAL SYR PO STA (11:48)
[2019-08-21] MEDS ORDERED: MAGNESIUM/ALUMINUM HYDROXIDE/SIMETHICONE 30ML UDC PO STA (11:48)
[2019-08-21 12:43] VITALS: BP 122/80
== END 2019-08-21 12:47 | disposition home or self-care (01) ==
LOC: ER 09:35
DX: B34.9 Viral infection, unspecified (principal); K62.5 Hemorrhage of anus and rectum; R03.0 Elevated blood-pressure reading, without diagnosis of hypertension; D57.1 Sickle-cell disease without crisis; J45.909 Unspecified asthma, uncomplicated; Z79.899 Other long term (current) drug therapy; Z88.5 Allergy status to narcotic agent; Z88.3 Allergy status to other anti-infective agents
CPT/HCPCS: 36415; 71045; 80053; 81003; 81025; 85025; 93005; 99285; Q0162

== ENCOUNTER 2019-10-20 13:19 | Inpatient (IN) | payer MEDICARE, MEDICAID ==
[~2019-10-20] VITALS: Ht 157.5 cm; Wt 44.9 kg
[2019-10-20] MEDS ORDERED: NITROGLYCERIN 0.4MG TABLET SL SL PRN (13:45)
[2019-10-20] MEDS ORDERED: ASPIRIN 81MG TABLET PO ONE (13:45)
[2019-10-20 14:13] LABS: BASOPHILS % 0.7 % (0.0-2.0); EOSINOPHILS % 7.2 % (0.0-5.0); HEMOGLOBIN. 12.5 g/dL (12.0-16.0); LYMPHOCYTES % 29.9 % (20.0-50.0); MEAN CORPUSCULAR HEMOGLOBIN 30.6 pg (28.0-32.0); MEAN CORPUSCULAR VOLUME 88.1 fL (81.0-99.0); MEAN PLATELET VOLUME 9.2 fl (7.4-10.4); MONOCYTES % 5.7 % (2.0-8.0); NEUTROPHILS % 56.5 % (40.0-76.0); PLATELET 203 x1000/uL (130-400); RED BLOOD CELL COUNT 4.09 mill/uL (4.2-5.4); RED CELL DISTRIBUTION WIDTH 14.3 % (11.6-14.6)
[2019-10-20 14:20] LABS: CHLORIDE 106 mEq/L (98-107)
[2019-10-20 14:24] LABS: D-DIMER 0.38 mg/L FEU (<0.50); PARTIAL THROMBOPLASTIN TIME 29.4 sec (23.4-31.0); PROTHROMBIN TIME 10.8 sec (9.6-11.0)
[2019-10-20] MEDS: MORPHINE SULFATE 4 MG/ML CPJ (NOT FOR IM USE) IV STA (15:15)
[2019-10-20] MEDS: ONDANSETRON HCL 4MG/2ML INJ IV STA (15:15)
[2019-10-20] MEDS: KETOROLAC 15MG/ML VIAL IV PRN ×2 (18:03→23:13)
[2019-10-20 22:08] VITALS: BP 127/72
[2019-10-21] VITALS: BP 95/67
[2019-10-21 04:00] VITALS: BP 102/63
[2019-10-21 08:00] VITALS: BP 99/51
[2019-10-21] MEDS ORDERED: CLONIDINE 0.1MG TABLET PO PRN (08:45)
[2019-10-21] MEDS ORDERED: IPRATROPIUM/ALBUTEROL 0.5-3(2.5)MG/3ML NEB HHN PRN (08:45)
[2019-10-21] MEDS ORDERED: DOCUSATE SODIUM 100MG CAPSULE PO PRN (08:45)
[2019-10-21] MEDS ORDERED: ACETAMINOPHEN 325MG TABLET PO PRN (08:45)
[2019-10-21] MEDS: LORAZEPAM 0.5MG TABLET PO PRN (09:52)
[2019-10-21] MEDS: ONDANSETRON HCL 4MG/2ML INJ IV PRN ×2 (09:52→17:35)
[2019-10-21 10:02] LABS: HCG SCREEN NEGATIVE
[2019-10-21 10:42] LABS: *AMPHETAMINES SCREEN URINE NEGATIVE (NEGATIVE); *BARBITURATES SCREEN URINE NEGATIVE (NEGATIVE); *BENZODIAZEPINES SCREEN URINE NEGATIVE (NEGATIVE); *COCAINE SCREEN URINE NEGATIVE (NEGATIVE); CANNABINOID URINE SCREEN NEGATIVE (NEGATIVE); METHADONE URINE SCREEN NEGATIVE (NEGATIVE); OPIATES URINE SCREEN NEGATIVE (NEGATIVE); PHENCYCLIDINE URINE SCREEN NEGATIVE (NEGATIVE)
[2019-10-21 12:00] VITALS: BP 99/63
[2019-10-21] MEDS: METHYLPREDNISOLONE SOD SUCC 40 MG/ML VIAL IV SCH ×2 (13:19→21:34)
[2019-10-21] MEDS: HYDROCODONE/ACETAMINOPHEN 5/325MG TABLET PO PRN ×2 (13:36→18:27)
[2019-10-21] MEDS ORDERED: ALBUTEROL (0.083%) 2.5MG/3ML NEB HHN PRN (14:48)
[2019-10-21] MEDS: DEXT 5%/0.45% NACL 1000ML 1,000 ML IV SCH (14:54)
[2019-10-21 16:00] VITALS: BP 101/54
[2019-10-21] MEDS: ALBUTEROL (0.083%) 2.5MG/3ML NEB HHN SCH ×2 (16:27→20:45)
[2019-10-21] MEDS: SODIUM CHLORIDE 45ML SPRAY BOTHNSTRLS SCH ×2 (17:34→21:36)
[2019-10-21] MEDS: PHENYLEPHRINE HCL 0.5% 15ML NASAL SPRAY BOTHNSTRLS SCH (17:34)
[2019-10-21] MEDS: FLUTICASONE PROPIONATE 50MCG/SPRAY BOTTLE BOTHNSTRLS SCH (17:34)
[2019-10-21] MEDS: MONTELUKAST SODIUM 10MG TABLET PO SCH (17:35)
[2019-10-21 20:00] VITALS: BP 96/48
[2019-10-21] MEDS: BUDESONIDE 0.5MG/2ML NEB HHN SCH (20:46)
[2019-10-22] VITALS: BP 101/59
[2019-10-22] MEDS: ALBUTEROL (0.083%) 2.5MG/3ML NEB HHN SCH ×4 (00:27→13:10)
[2019-10-22] MEDS: DEXT 5%/0.45% NACL 1000ML 1,000 ML IV SCH ×2 (02:58→17:10)
[2019-10-22] MEDS: HYDROCODONE/ACETAMINOPHEN 5/325MG TABLET PO PRN (02:58)
[2019-10-22] MEDS: ONDANSETRON HCL 4MG/2ML INJ IV PRN ×2 (03:02→14:47)
[2019-10-22 04:00] VITALS: BP 112/65
[2019-10-22] MEDS: METHYLPREDNISOLONE SOD SUCC 40 MG/ML VIAL IV SCH ×2 (06:25→14:47)
[2019-10-22] MEDS: LORAZEPAM 0.5MG TABLET PO PRN (06:42)
[2019-10-22 06:47] LABS: HEMATOCRIT. 35.7 % (36.0-48.0); HEMOGLOBIN. 12.2 g/dL (12.0-16.0); LYMPHOCYTES % 10.3 % (20.0-50.0); MEAN CORPUSCULAR HEMOGLOBIN 30.3 pg (28.0-32.0); MEAN CORPUSCULAR VOLUME 88.8 fL (81.0-99.0); MEAN PLATELET VOLUME 9.7 fl (7.4-10.4); MONOCYTES % 3.9 % (2.0-8.0); NEUTROPHILS % 85.8 % (40.0-76.0); PLATELET 188 x1000/uL (130-400); RED BLOOD CELL COUNT 4.02 mill/uL (4.2-5.4); RED CELL DISTRIBUTION WIDTH 14.4 % (11.6-14.6)
[2019-10-22 07:00] LABS: CHLORIDE 107 mEq/L (98-107)
[2019-10-22] MEDS: SODIUM CHLORIDE 45ML SPRAY BOTHNSTRLS SCH ×3 (09:11→16:00)
[2019-10-22] MEDS: PHENYLEPHRINE HCL 0.5% 15ML NASAL SPRAY BOTHNSTRLS SCH (09:11)
[2019-10-22] MEDS: FLUTICASONE PROPIONATE 50MCG/SPRAY BOTTLE BOTHNSTRLS SCH (09:11)
[2019-10-22] MEDS: BUDESONIDE 0.5MG/2ML NEB HHN SCH (09:30)
[2019-10-22 11:48] VITALS: BP 121/61
[2019-10-22] MEDS ORDERED: GUAIFENESIN 200MG/10ML SUGAR FREE UDC PO PRN (12:15)
[2019-10-22] MEDS ORDERED: POLYETHYLENE GLYCOL 3350 (17GM) 1 DOSE PACK PO SCH (12:15)
[2019-10-22] MEDS ORDERED: CALCIUM CARBONATE 500MG TABLET CHEW PO SCH (12:40)
[2019-10-22] MEDS ORDERED: MONT10TA21 PO (15:57)
[2019-10-22] MEDS ORDERED: HYDR-3281 MT (15:57)
[2019-10-22] MEDS ORDERED: MED4 MT (15:57)
[2019-10-22] MEDS ORDERED: ONDA4TAB11 PO (15:57)
[2019-10-22] MEDS ORDERED: LORA-249 MT (15:57)
[2019-10-22] MEDS ORDERED: FLUT9.9S BOTHNSTRLS (15:57)
[2019-10-22] MEDS ORDERED: TUSSL MT (15:57)
[2019-10-22] MEDS ORDERED: [UNRECOGNIZED DRUG - CODE] MT (15:57)
[2019-10-22] MEDS ORDERED: BUDE6.9H INH (16:00)
[2019-10-22] MEDS: MONTELUKAST SODIUM 10MG TABLET PO SCH (16:01)
[2019-10-22 16:23] VITALS: BP 92/50
[2019-10-22 16:50] VITALS: BP 92/50
== END 2019-10-22 17:22 | disposition home or self-care (01) | DRG 189 ==
LOC: ER 13:19 → 8WST 16:13 → EDBEDREQ 16:15 → EDBEDREQTM 16:15 → ENRESERV 20:37
PROVIDERS: ADMIT Internal Medicine; ATTEND Internal Medicine
DX: J96.00 Acute respiratory failure, unspecified whether with hypoxia or hypercapnia (principal); J45.31 Mild persistent asthma with (acute) exacerbation; B44.9 Aspergillosis, unspecified; D57.3 Sickle-cell trait; I95.9 Hypotension, unspecified; F41.9 Anxiety disorder, unspecified; D64.9 Anemia, unspecified; D72.1 Eosinophilia; J30.9 Allergic rhinitis, unspecified; Z88.1 Allergy status to other antibiotic agents; Z88.5 Allergy status to narcotic agent; Z88.8 Allergy status to other drugs, medicaments and biological substances; Z79.891 Long term (current) use of opiate analgesic; Z79.1 Long term (current) use of non-steroidal anti-inflammatories (NSAID); Z79.899 Other long term (current) drug therapy
CPT/HCPCS: 36415; 71045; 80048; 80053; 80305; 83880; 84484; 84703; 85025; 85379; 93005; 93970; 99285; J1885; J2270; J2405; J2920; J7626

== ENCOUNTER 2019-11-30 10:48 | Emergency (ER) | payer MEDICARE, MEDICAID ==
[~2019-11-30] VITALS: Ht 157.5 cm; Wt 44.0 kg
[~2019-11-30 10:48] MED LIST changes: +BUDE6.9H INH; +FLUT9.9S BOTHNSTRLS; +HYDR-3281 MT; -HYDR-4005 MT; -IBUP-2030 PO; -LORA-249; +LORA-249 MT; -LORA-250 PO; +MED4 MT; +MONT10TA21 PO; +ONDA4TAB11 PO; -VORI200T3 MT; -ZOFRAN; +[UNRECOGNIZED DRUG - CODE] MT
[2019-11-30 11:31] LABS: BASOPHILS % 0.3 % (0.0-2.0); EOSINOPHILS % 1.5 % (0.0-5.0); HEMATOCRIT. 39.8 % (36.0-48.0); HEMOGLOBIN. 13.5 g/dL (12.0-16.0); LYMPHOCYTES % 25.4 % (20.0-50.0); MEAN CORPUSCULAR HEMOGLOBIN 30.3 pg (28.0-32.0); MEAN CORPUSCULAR VOLUME 89.5 fL (81.0-99.0); MEAN PLATELET VOLUME 9.3 fl (7.4-10.4); MONOCYTES % 4.7 % (2.0-8.0); NEUTROPHILS % 68.1 % (40.0-76.0); PLATELET 269 x1000/uL (130-400); RED BLOOD CELL COUNT 4.45 mill/uL (4.2-5.4); RED CELL DISTRIBUTION WIDTH 14.4 % (11.6-14.6)
[2019-11-30 11:38] LABS: CHLORIDE 104 mEq/L (98-107)
[2019-11-30 11:41] LABS: ETHANOL BLOOD < 10 mg/dL
[2019-11-30] MEDS ORDERED: LORAZEPAM 0.5MG TABLET PO ONE (12:30)
[2019-11-30 13:05] LABS: *AMPHETAMINES SCREEN URINE NEGATIVE (NEGATIVE); *BARBITURATES SCREEN URINE NEGATIVE (NEGATIVE); *BENZODIAZEPINES SCREEN URINE NEGATIVE (NEGATIVE)
[2019-11-30 13:06] LABS: *COCAINE SCREEN URINE NEGATIVE (NEGATIVE); CANNABINOID URINE SCREEN NEGATIVE (NEGATIVE); METHADONE URINE SCREEN NEGATIVE (NEGATIVE); OPIATES URINE SCREEN NEGATIVE (NEGATIVE); PHENCYCLIDINE URINE SCREEN NEGATIVE (NEGATIVE)
[2019-11-30] MEDS ORDERED: ONDANSETRON 4MG ODT PO ONE (13:30)
[2019-11-30] MEDS ORDERED: KETOROLAC 30MG/ML VIAL IV ONE (14:15)
[2019-11-30 16:08] VITALS: BP 101/72
== END 2019-11-30 16:10 | disposition home or self-care (01) ==
LOC: ER 10:48 → CANBEDREQ 16:37
DX: R07.89 Other chest pain (principal); R42 Dizziness and giddiness; F41.9 Anxiety disorder, unspecified; D57.1 Sickle-cell disease without crisis; J45.909 Unspecified asthma, uncomplicated; Z88.3 Allergy status to other anti-infective agents; Z88.5 Allergy status to narcotic agent
CPT/HCPCS: 36415; 71045; 80053; 80305; 80320; 81025; 83690; 83880; 84484; 85025; 93005; 96374; 99285; J1885; Q0162; G0480

== ENCOUNTER 2019-12-27 11:04 | Emergency (ER) | payer MEDICARE, MEDICAID ==
[~2019-12-27] VITALS: Ht 157.5 cm; Wt 42.7 kg
[2019-12-27] MEDS ORDERED: LORAZEPAM 1MG TABLET PO ONE (11:15)
[2019-12-27 11:54] LABS: BASOPHILS % 0.8 % (0.0-2.0); HEMATOCRIT. 37.2 % (36.0-48.0); HEMOGLOBIN. 12.6 g/dL (12.0-16.0); LYMPHOCYTES % 23.5 % (20.0-50.0); MEAN CORPUSCULAR HEMOGLOBIN 30.3 pg (28.0-32.0); MEAN CORPUSCULAR VOLUME 89.8 fL (81.0-99.0); MEAN PLATELET VOLUME 9.3 fl (7.4-10.4); MONOCYTES % 5.8 % (2.0-8.0); NEUTROPHILS % 66.9 % (40.0-76.0); PLATELET 211 x1000/uL (130-400); RED BLOOD CELL COUNT 4.15 mill/uL (4.2-5.4); RED CELL DISTRIBUTION WIDTH 14.7 % (11.6-14.6)
[2019-12-27 11:59] LABS: CHLORIDE 108 mEq/L (98-107)
[2019-12-27 12:03] LABS: ETHANOL BLOOD < 10 mg/dL
[2019-12-27 13:55] VITALS: BP 111/66
[2019-12-27 15:02] LABS: METHADONE URINE SCREEN NEGATIVE (NEGATIVE)
[2019-12-27 15:03] LABS: *AMPHETAMINES SCREEN URINE NEGATIVE (NEGATIVE); *BARBITURATES SCREEN URINE NEGATIVE (NEGATIVE); *BENZODIAZEPINES SCREEN URINE NEGATIVE (NEGATIVE); *COCAINE SCREEN URINE NEGATIVE (NEGATIVE); CANNABINOID URINE SCREEN NEGATIVE (NEGATIVE); OPIATES URINE SCREEN NEGATIVE (NEGATIVE)
[2019-12-27 15:36] LABS: PHENCYCLIDINE URINE SCREEN NEGATIVE (NEGATIVE)
== END 2019-12-27 17:13 | disposition home or self-care (01) ==
LOC: ER 11:04
DX: R07.89 Other chest pain (principal); D57.1 Sickle-cell disease without crisis; F41.9 Anxiety disorder, unspecified; J45.909 Unspecified asthma, uncomplicated; Z88.3 Allergy status to other anti-infective agents; Z88.5 Allergy status to narcotic agent
CPT/HCPCS: 36415; 71045; 80053; 80305; 80320; 81025; 84484; 85025; 93005; 99285; G0480

== ENCOUNTER 2020-01-10 16:57 | Emergency (ER) | payer MEDICARE, MEDICAID ==
[~2020-01-10] VITALS: Ht 160 cm; Wt 42.0 kg
[2020-01-10] MEDS ORDERED: GABAPENTIN 300MG CAPSULE PO SCH (19:00)
[2020-01-10] MEDS ORDERED: KETOROLAC 30MG/ML VIAL IM ONE (19:00)
[2020-01-10 20:15] LABS: BASOPHILS % 0.6 % (0.0-2.0); EOSINOPHILS % 3.7 % (0.0-5.0); HEMATOCRIT. 42.2 % (36.0-48.0); HEMOGLOBIN. 13.9 g/dL (12.0-16.0); LYMPHOCYTES % 38.7 % (20.0-50.0); MEAN CORPUSCULAR VOLUME 90.9 fL (81.0-99.0); MEAN PLATELET VOLUME 9.9 fl (7.4-10.4); MONOCYTES % 6.7 % (2.0-8.0); NEUTROPHILS % 50.3 % (40.0-76.0); PLATELET 297 x1000/uL (130-400); RED BLOOD CELL COUNT 4.64 mill/uL (4.2-5.4); RED CELL DISTRIBUTION WIDTH 14.5 % (11.6-14.6)
[2020-01-10 23:05] LABS: CHLORIDE 105 mEq/L (98-107)
[2020-01-11 00:03] VITALS: BP 108/82
== END 2020-01-11 00:08 | disposition home or self-care (01) ==
LOC: ER 16:57
DX: R07.89 Other chest pain (principal); F41.1 Generalized anxiety disorder; M79.10 Myalgia, unspecified site; J45.909 Unspecified asthma, uncomplicated; R51 Headache; D57.1 Sickle-cell disease without crisis; Z88.1 Allergy status to other antibiotic agents; Z88.3 Allergy status to other anti-infective agents; Z88.5 Allergy status to narcotic agent
CPT/HCPCS: 36415; 71045; 80053; 83880; 84484; 85025; 93005; 96372; 99285; J1885

== ENCOUNTER 2020-04-08 13:43 | Emergency (ER) | payer MEDICARE, MEDICAID ==
[~2020-04-08] VITALS: Ht 160 cm; Wt 53.0 kg
[2020-04-08] MEDS ORDERED: MORPHINE SULFATE 4 MG/ML CPJ (NOT FOR IM USE) IV STA (15:26)
[2020-04-08] MEDS ORDERED: ONDANSETRON HCL 4MG/2ML INJ IV STA (15:26)
[2020-04-08] MEDS ORDERED: SODIUM CHLORIDE 0.9% 1,000 ML IV ONE (15:30)
[2020-04-08 15:55] LABS: CLARITY URINE CLEAR (CLEAR); COLOR URINE YELLOW (YELLOW); KETONES URINE NEGATIVE (NEGATIVE); LEUKOCYTE ESTERASE URINE 3+ (NEGATIVE); NITRITE URINE POSITIVE (NEGATIVE); OCCULT BLOOD URINE 1+ (NEGATIVE); PH URINE 6.5 (4.5-8.0); PROTEIN URINE NEGATIVE (NEGATIVE); SPECIFIC GRAVITY URINE 1.013 (1.005-1.030); UROBILINOGEN URINE 0.2 E.U./dL (0.2-1.0)
[2020-04-08 17:00] LABS: BASOPHILS % 0.5 % (0.0-2.0); EOSINOPHILS % 3.2 % (0.0-5.0); HEMATOCRIT. 36.8 % (36.0-48.0); HEMOGLOBIN. 12.4 g/dL (12.0-16.0); LYMPHOCYTES % 23.8 % (20.0-50.0); MEAN CORPUSCULAR HEMOGLOBIN 30.1 pg (28.0-32.0); MEAN CORPUSCULAR VOLUME 88.8 fL (81.0-99.0); MEAN PLATELET VOLUME 9.5 fl (7.4-10.4); MONOCYTES % 6.3 % (2.0-8.0); NEUTROPHILS % 66.2 % (40.0-76.0); PLATELET 242 x1000/uL (130-400); RED BLOOD CELL COUNT 4.14 mill/uL (4.2-5.4); RED CELL DISTRIBUTION WIDTH 13.7 % (11.6-14.6)
[2020-04-08 17:01] LABS: CHLORIDE 107 mEq/L (98-107)
[2020-04-08 17:07] LABS: PARTIAL THROMBOPLASTIN TIME 28.6 sec (23.4-31.0); PROTHROMBIN TIME 10.5 sec (9.6-11.0)
[2020-04-08] MEDS ORDERED: CEFTRIAXONE 1 G PREMIX 50 ML IV ONE (17:30)
[2020-04-08] MEDS ORDERED: CEFTRIAXONE 1,000 MG in DEXTROSE 5% WATER 50 ML IV SCH ×2 (17:45→19:00)
[2020-04-08] MEDS ORDERED: KETOROLAC 15MG/ML VIAL IV ONE (19:00)
[2020-04-08] MEDS ORDERED: HYDROCODONE/ACETAMINOPHEN 5/325MG TABLET PO ONE (19:45)
[2020-04-08] MEDS ORDERED: LORAZEPAM 0.5MG TABLET PO ONE (20:30)
[2020-04-08 20:47] VITALS: BP 127/70
[2020-04-08] MEDS ORDERED: IOHEXOL-350 100 ML BOTTLE ONE (21:04)
== END 2020-04-08 21:00 | disposition home or self-care (01) ==
LOC: ER 13:43
DX: N39.0 Urinary tract infection, site not specified (principal); R07.89 Other chest pain; R11.2 Nausea with vomiting, unspecified; D57.1 Sickle-cell disease without crisis; J45.909 Unspecified asthma, uncomplicated
CPT/HCPCS: 36415; 71045; 71275; 74177; 80053; 81003; 83880; 84484; 85025; 85610; 85730; 96361; 96365; 96375; 99285; J0696; J1885; J2405; J7030; J7060; Q9967

== ENCOUNTER 2020-05-24 14:01 | Emergency (ER) | payer MEDICARE, MEDICAID ==
[~2020-05-24] VITALS: Ht 160 cm; Wt 44.0 kg
[~2020-05-24 14:01] MED LIST changes: -HYDR-3281 MT; +HYDR-4346 MT
[2020-05-24] MEDS ORDERED: LORAZEPAM 0.5MG TABLET PO ONE (17:00)
[2020-05-24] MEDS ORDERED: ACETAMINOPHEN 325MG TABLET PO ONE (17:00)
[2020-05-24] MEDS ORDERED: FAMOTIDINE 20MG TABLET PO ONE (20:15)
[2020-05-24] MEDS ORDERED: MAGNESIUM/ALUMINUM HYDROXIDE/SIMETHICONE 30ML UDC PO ONE (20:15)
[2020-05-24 22:16] VITALS: BP 118/65
== END 2020-05-24 22:17 | disposition home or self-care (01) ==
LOC: ER 14:01
DX: G43.909 Migraine, unspecified, not intractable, without status migrainosus (principal); F41.9 Anxiety disorder, unspecified; J45.909 Unspecified asthma, uncomplicated; Z88.1 Allergy status to other antibiotic agents; Z88.5 Allergy status to narcotic agent; Z79.899 Other long term (current) drug therapy
CPT/HCPCS: 93005; 99284

== ENCOUNTER 2020-06-24 17:21 | Emergency (ER) | payer MEDICARE, MEDICAID ==
[~2020-06-24] VITALS: Ht 160 cm; Wt 43.0 kg
[2020-06-24] MEDS ORDERED: ACETAMINOPHEN 325MG TABLET PO ONE (17:45)
[2020-06-24 18:22] LABS: BASOPHILS % 0.7 % (0.0-2.0); EOSINOPHILS % 3.5 % (0.0-5.0); HEMATOCRIT. 38.7 % (36.0-48.0); HEMOGLOBIN. 12.8 g/dL (12.0-16.0); LYMPHOCYTES % 39.6 % (20.0-50.0); MEAN CORPUSCULAR HEMOGLOBIN 29.4 pg (28.0-32.0); MEAN CORPUSCULAR VOLUME 89.2 fL (81.0-99.0); MEAN PLATELET VOLUME 10.2 fl (7.4-10.4); MONOCYTES % 8.6 % (2.0-8.0); NEUTROPHILS % 47.6 % (40.0-76.0); PLATELET 223 x1000/uL (130-400); RED BLOOD CELL COUNT 4.34 mill/uL (4.2-5.4); RED CELL DISTRIBUTION WIDTH 14.7 % (11.6-14.6)
[2020-06-24 18:33] VITALS: BP 124/69
[2020-06-24 18:33] LABS: CHLORIDE 107 mEq/L (98-107)
[2020-06-24 20:21] LABS: CLARITY URINE CLEAR (CLEAR); COLOR URINE YELLOW (YELLOW); KETONES URINE NEGATIVE (NEGATIVE); LEUKOCYTE ESTERASE URINE TRACE (NEGATIVE); NITRITE URINE NEGATIVE (NEGATIVE); OCCULT BLOOD URINE TRACE (NEGATIVE); PH URINE 6.5 (4.5-8.0); PROTEIN URINE NEGATIVE (NEGATIVE); SPECIFIC GRAVITY URINE 1.012 (1.005-1.030); UROBILINOGEN URINE 0.2 E.U./dL (0.2-1.0)
== END 2020-06-24 21:33 | disposition home or self-care (01) ==
LOC: ER 17:21
DX: R06.02 Shortness of breath (principal); R51.9 Headache, unspecified; R07.89 Other chest pain; F41.9 Anxiety disorder, unspecified; R47.81 Slurred speech; R09.81 Nasal congestion; H53.8 Other visual disturbances
CPT/HCPCS: 36415; 71045; 80053; 81003; 83880; 84484; 85025; 93005; 99285

== ENCOUNTER 2020-07-28 09:15 | Emergency (ER) | payer MEDICARE, MEDICAID ==
[~2020-07-28] VITALS: Ht 160 cm; Wt 45.0 kg
[2020-07-28] MEDS ORDERED: ALBUTEROL (0.083%) 2.5MG/3ML NEB HHN STA (09:57)
[2020-07-28] MEDS ORDERED: IPRATROPIUM BROMIDE (0.02%) 0.5MG/2.5ML NEB HHN STA (09:57)
[2020-07-28 10:21] LABS: HEMATOCRIT. 39.8 % (36.0-48.0); HEMOGLOBIN. 13.4 g/dL (12.0-16.0); MEAN CORPUSCULAR HEMOGLOBIN 30.2 pg (28.0-32.0); MEAN CORPUSCULAR VOLUME 89.8 fL (81.0-99.0); MEAN PLATELET VOLUME 9.9 fl (7.4-10.4); PLATELET 274 x1000/uL (130-400); RED BLOOD CELL COUNT 4.44 mill/uL (4.2-5.4); RED CELL DISTRIBUTION WIDTH 14.8 % (11.6-14.6)
[2020-07-28 10:29] LABS: CHLORIDE 103 mEq/L (98-107)
[2020-07-28] MEDS ORDERED: ALBU90AE INH (10:46)
[2020-07-28] MEDS ORDERED: P20 MT (10:46)
[2020-07-28 11:03] VITALS: BP 138/70
[2020-07-28 11:03] LABS: HCG SCREEN INDETERMINATE
[2020-07-28 11:15] LABS: PLATELET ESTIMATE NORMAL
== END 2020-07-28 11:07 | disposition home or self-care (01) ==
LOC: ER 10:13
DX: J45.909 Unspecified asthma, uncomplicated (principal); Z88.5 Allergy status to narcotic agent; Z88.1 Allergy status to other antibiotic agents; Z79.899 Other long term (current) drug therapy
CPT/HCPCS: 36415; 71045; 80053; 84484; 84703; 85025; 93005; 94640; 99285

== ENCOUNTER 2020-11-01 10:29 | Inpatient (IN) | payer MEDICARE, MEDICAID ==
[~2020-11-01] VITALS: Ht 160 cm; Wt 46.7 kg
[~2020-11-01 10:29] MED LIST changes: +ALBU90AE INH; +CLAR10 PO; +LEVO500T89 MT; -MED4 MT
[2020-11-01] MEDS ORDERED: MAGNESIUM/ALUMINUM HYDROXIDE/SIMETHICONE 30ML UDC PO STA (11:18)
[2020-11-01] MEDS ORDERED: SODIUM CHLORIDE 0.9% 1,000 ML IV ONE (11:30)
[2020-11-01 11:43] LABS: BASOPHILS % 0.6 % (0.0-2.0); EOSINOPHILS % 2.5 % (0.0-5.0); HEMATOCRIT. 34.9 % (36.0-48.0); HEMOGLOBIN. 12.4 g/dL (12.0-16.0); LYMPHOCYTES % 26.9 % (20.0-50.0); MEAN CORPUSCULAR HEMOGLOBIN 30.6 pg (28.0-32.0); MEAN CORPUSCULAR VOLUME 86.2 fL (81.0-99.0); MEAN PLATELET VOLUME 10.6 fl (7.4-10.4); MONOCYTES % 8.7 % (2.0-8.0); NEUTROPHILS % 61.3 % (40.0-76.0); PLATELET 214 x1000/uL (130-400); RED BLOOD CELL COUNT 4.05 mill/uL (4.2-5.4); RED CELL DISTRIBUTION WIDTH 14.7 % (11.6-14.6)
[2020-11-01 11:50] LABS: CHLORIDE 106 mEq/L (98-107)
[2020-11-01 11:53] LABS: ETHANOL BLOOD < 10 mg/dL
[2020-11-01 12:44] LABS: CLARITY URINE CLEAR (CLEAR); COLOR URINE YELLOW (YELLOW); KETONES URINE NEGATIVE (NEGATIVE); LEUKOCYTE ESTERASE URINE NEGATIVE (NEGATIVE); NITRITE URINE NEGATIVE (NEGATIVE); OCCULT BLOOD URINE NEGATIVE (NEGATIVE); PH URINE 6.5 (4.5-8.0); PROTEIN URINE NEGATIVE (NEGATIVE); SPECIFIC GRAVITY URINE 1.011 (1.005-1.030); UROBILINOGEN URINE 0.2 E.U./dL (0.2-1.0)
[2020-11-01 12:54] LABS: *AMPHETAMINES SCREEN URINE NEGATIVE (NEGATIVE)
[2020-11-01 12:55] LABS: *BARBITURATES SCREEN URINE NEGATIVE (NEGATIVE); *BENZODIAZEPINES SCREEN URINE NEGATIVE (NEGATIVE); *COCAINE SCREEN URINE NEGATIVE (NEGATIVE); METHADONE URINE SCREEN NEGATIVE (NEGATIVE); OPIATES URINE SCREEN NEGATIVE (NEGATIVE); PHENCYCLIDINE URINE SCREEN NEGATIVE (NEGATIVE)
[2020-11-01 12:56] LABS: CANNABINOID URINE SCREEN NEGATIVE (NEGATIVE)
[2020-11-01] MEDS ORDERED: ACETAMINOPHEN 325MG TABLET PO ONE (13:00)
[2020-11-01] MEDS ORDERED: ONDANSETRON 4MG ODT PO ONE (13:00)
[2020-11-01] MEDS ORDERED: MORPHINE SULFATE 4 MG/ML CPJ (NOT FOR IM USE) IV ONE (13:45)
[2020-11-01] MEDS ORDERED: ASPIRIN 81MG TABLET PO ONE (13:45)
[2020-11-01] MEDS ORDERED: MORPHINE SULFATE 2 MG/ML CPJ (NOT FOR IM USE) IV PRN (21:30)
[2020-11-01] MEDS ORDERED: SODIUM CHLORIDE 0.9% 500 ML IV NR (21:30)
[2020-11-01] MEDS: ONDANSETRON HCL 4MG/2ML INJ IV PRN (21:35)
[2020-11-01 23:10] VITALS: BP 122/72
[2020-11-02 04:00] VITALS: BP 94/56
[2020-11-02] MEDS: PANTOPRAZOLE 40MG DR TABLET PO SCH (06:25)
[2020-11-02 07:17] LABS: CHLORIDE 109 mEq/L (98-107)
[2020-11-02 07:26] LABS: BASOPHILS % 0.4 % (0.0-2.0); EOSINOPHILS % 5.3 % (0.0-5.0); HEMOGLOBIN. 11.6 g/dL (12.0-16.0); LYMPHOCYTES % 19.3 % (20.0-50.0); MEAN CORPUSCULAR HEMOGLOBIN 29.6 pg (28.0-32.0); MEAN CORPUSCULAR VOLUME 86.9 fL (81.0-99.0); MEAN PLATELET VOLUME 10.3 fl (7.4-10.4); MONOCYTES % 10.5 % (2.0-8.0); NEUTROPHILS % 64.5 % (40.0-76.0); PLATELET 178 x1000/uL (130-400); RED BLOOD CELL COUNT 3.92 mill/uL (4.2-5.4); RED CELL DISTRIBUTION WIDTH 14.6 % (11.6-14.6)
[2020-11-02 08:00] VITALS: BP 90/54
[2020-11-02 12:00] VITALS: BP 90/61
[2020-11-02] MEDS ORDERED: SODIUM CHLORIDE 0.9% 500 ML IV ONE (12:45)
[2020-11-02] MEDS: ONDANSETRON HCL 4MG/2ML INJ IV PRN ×2 (12:47→20:20)
[2020-11-02] MEDS: SODIUM CHLORIDE 0.9% 1,000 ML IV SCH (13:31)
[2020-11-02 16:00] VITALS: BP 101/70
[2020-11-02] MEDS: LORAZEPAM 0.5MG TABLET PO PRN (17:13)
[2020-11-02 20:00] VITALS: BP_SYST 83; BP_DIAS 43; BP_DIAS 45
[2020-11-02] MEDS ORDERED: ACETAMINOPHEN 325MG TABLET PO PRN (20:15)
[2020-11-02] MEDS: GUAIFENESIN 600MG ER TABLET PO SCH (20:20)
[2020-11-02 23:46] VITALS: BP 98/59
[2020-11-03] MEDS: SODIUM CHLORIDE 0.9% 1,000 ML IV SCH ×2 (02:05→16:03)
[2020-11-03 04:00] VITALS: BP 96/58
[2020-11-03] MEDS: KETOROLAC 30MG/ML VIAL IV PRN ×3 (04:52→20:25)
[2020-11-03 06:26] VITALS: BP 96/58
[2020-11-03] MEDS: PANTOPRAZOLE 40MG DR TABLET PO SCH (06:33)
[2020-11-03] MEDS: ONDANSETRON HCL 4MG/2ML INJ IV PRN ×4 (06:33→20:25)
[2020-11-03 08:00] VITALS: BP 100/49
[2020-11-03] MEDS: GUAIFENESIN 600MG ER TABLET PO SCH ×2 (08:26→20:22)
[2020-11-03] MEDS: LORAZEPAM 0.5MG TABLET PO PRN (08:26)
[2020-11-03] MEDS: FOLIC ACID 1MG TABLET PO SCH (08:26)
[2020-11-03] MEDS ORDERED: IPRATROPIUM/ALBUTEROL 0.5-3(2.5)MG/3ML NEB HHN PRN (11:30)
[2020-11-03 12:00] VITALS: BP 92/45
[2020-11-03] MEDS: DIPHENHYDRAMINE 25MG CAPSULE PO PRN ×2 (12:29→20:22)
[2020-11-03 16:00] VITALS: BP 84/48
[2020-11-03 20:00] VITALS: BP 86/55
[2020-11-04] VITALS: BP 91/49
[2020-11-04] MEDS: SODIUM CHLORIDE 0.9% 1,000 ML IV SCH ×2 (02:04→11:52)
[2020-11-04 04:00] VITALS: BP 90/58
[2020-11-04] MEDS: ONDANSETRON HCL 4MG/2ML INJ IV PRN ×4 (04:12→13:18)
[2020-11-04] MEDS: DIPHENHYDRAMINE 25MG CAPSULE PO PRN (04:12)
[2020-11-04] MEDS: KETOROLAC 30MG/ML VIAL IV PRN ×2 (04:12→13:18)
[2020-11-04] MEDS: LORAZEPAM 0.5MG TABLET PO PRN (05:24)
[2020-11-04 08:46] VITALS: BP 106/59
[2020-11-04] MEDS: PANTOPRAZOLE 40MG DR TABLET PO SCH (08:49)
[2020-11-04] MEDS: GUAIFENESIN 600MG ER TABLET PO SCH (08:49)
[2020-11-04] MEDS ORDERED: DOCUSATE SODIUM SUGAR FREE 100MG/10ML UDC NG SCH (09:00)
[2020-11-04] MEDS: FOLIC ACID 1MG TABLET PO SCH (09:56)
[2020-11-04] MEDS ORDERED: MAGNESIUM/ALUMINUM HYDROXIDE/SIMETHICONE 30ML UDC PO NR (12:00)
[2020-11-04] MEDS ORDERED: MAGNESIUM/ALUMINUM HYDROXIDE/SIMETHICONE 30ML UDC PO PRN (12:00)
[2020-11-04] MEDS ORDERED: LACTULOSE 20G/30ML UDC PO NR (12:00)
[2020-11-04 12:30] VITALS: BP 101/59
[2020-11-04] MEDS ORDERED: ONDA4TAB11 PO (14:42)
[2020-11-04] MEDS ORDERED: FLUT9.9S BOTHNSTRLS (14:42)
[2020-11-04] MEDS ORDERED: MONT10TA21 PO (14:42)
[2020-11-04] MEDS ORDERED: ALBU90AE INH (14:42)
[2020-11-04] MEDS ORDERED: HYDR-4001 MT (14:42)
[2020-11-04] MEDS ORDERED: BUDE6.9H INH (14:42)
[2020-11-04 15:41] VITALS: BP 119/66
[2020-11-05] MEDS ORDERED: FAMOTIDINE 20MG TABLET PO SCH (07:20)
== END 2020-11-04 16:50 | disposition home or self-care (01) | DRG 812 ==
LOC: ER 10:29 → 6WST 14:45 → EDBEDREQ 14:58 → ENRESERV 19:38 → CANRESERV 19:38 → ENRESERV 22:34
PROVIDERS: ADMIT Internal Medicine; ATTEND Internal Medicine
DX: D57.00 Hb-SS disease with crisis, unspecified (principal); N13.30 Unspecified hydronephrosis; E78.5 Hyperlipidemia, unspecified; F41.9 Anxiety disorder, unspecified; J45.909 Unspecified asthma, uncomplicated; K76.0 Fatty (change of) liver, not elsewhere classified; N28.1 Cyst of kidney, acquired; Z88.6 Allergy status to analgesic agent; Z88.8 Allergy status to other drugs, medicaments and biological substances; Z79.899 Other long term (current) drug therapy; M19.90 Unspecified osteoarthritis, unspecified site
CPT/HCPCS: 36415; 71045; 76700; 80048; 80053; 80305; 80320; 81003; 83605; 84484; 85025; 93005; 94640; 99285; J1885; J2270; J2405; J7030; Q0162; Q0163; G0480

== ENCOUNTER 2020-12-17 13:13 | Emergency (ER) | payer OTHER, MEDICAID ==
[~2020-12-17] VITALS: Ht 157.5 cm; Wt 45.0 kg
[~2020-12-17 13:13] MED LIST changes: +HYDR-4001 MT; -LEVO500T89 MT
[2020-12-17 14:55] LABS: BASOPHILS % 0.6 % (0.0-2.0); EOSINOPHILS % 2.7 % (0.0-5.0); HEMATOCRIT. 38.5 % (36.0-48.0); HEMOGLOBIN. 13.1 g/dL (12.0-16.0); LYMPHOCYTES % 34.2 % (20.0-50.0); MEAN CORPUSCULAR HEMOGLOBIN 29.6 pg (28.0-32.0); MEAN CORPUSCULAR VOLUME 87.3 fL (81.0-99.0); MEAN PLATELET VOLUME 9.8 fl (7.4-10.4); MONOCYTES % 5.5 % (2.0-8.0); PLATELET 221 x1000/uL (130-400); RED BLOOD CELL COUNT 4.41 mill/uL (4.2-5.4); RED CELL DISTRIBUTION WIDTH 14.7 % (11.6-14.6)
[2020-12-17 15:14] LABS: CHLORIDE 105 mEq/L (98-107)
[2020-12-17] MEDS ORDERED: LORAZEPAM 1MG TABLET PO ONE (17:30)
[2020-12-17] MEDS ORDERED: PANTOPRAZOLE 40MG DR TABLET PO ONE (17:30)
[2020-12-17] MEDS ORDERED: PROT20 MT (18:18)
[2020-12-17] MEDS ORDERED: HYDR-459 MT (18:19)
[2020-12-17] MEDS ORDERED: CYCL5TAB MT (18:40)
[2020-12-17] MEDS ORDERED: ONDANSETRON 4MG ODT PO ONE (18:45)
[2020-12-17 19:03] VITALS: BP 104/73
== END 2020-12-17 19:05 | disposition home or self-care (01) ==
LOC: ER 13:13
DX: R07.89 Other chest pain (principal); F41.9 Anxiety disorder, unspecified; K29.70 Gastritis, unspecified, without bleeding; K21.9 Gastro-esophageal reflux disease without esophagitis; J45.909 Unspecified asthma, uncomplicated; Z88.5 Allergy status to narcotic agent; Z88.1 Allergy status to other antibiotic agents; Z79.899 Other long term (current) drug therapy
CPT/HCPCS: 36415; 71045; 74176; 80053; 83690; 84484; 85025; 93005; 99285; Q0162

== ENCOUNTER 2021-02-08 20:51 | Emergency (ER) | payer OTHER, MEDICAID ==
[~2021-02-08] VITALS: Ht 160 cm; Wt 46.2 kg
[~2021-02-08 20:51] MED LIST changes: +CYCL5TAB MT; +HYDR-459 MT; +PROT20 MT
[2021-02-09] MEDS ORDERED: MAGNESIUM/ALUMINUM HYDROXIDE/SIMETHICONE 30ML UDC PO STA (00:21)
[2021-02-09] MEDS ORDERED: VISCOUS LIDOCAINE 2% 15 ML UDC PO STA (00:21)
[2021-02-09] MEDS ORDERED: PANTOPRAZOLE 40MG DR TABLET PO ONE (00:30)
[2021-02-09 01:10] LABS: BASOPHILS % 0.6 % (0.0-2.0); EOSINOPHILS % 9.6 % (0.0-5.0); HEMATOCRIT. 37.3 % (36.0-48.0); HEMOGLOBIN. 12.5 g/dL (12.0-16.0); LYMPHOCYTES % 43.8 % (20.0-50.0); MEAN CORPUSCULAR HEMOGLOBIN 29.5 pg (28.0-32.0); MEAN CORPUSCULAR VOLUME 87.9 fL (81.0-99.0); MEAN PLATELET VOLUME 9.3 fl (7.4-10.4); MONOCYTES % 6.7 % (2.0-8.0); NEUTROPHILS % 39.3 % (40.0-76.0); PLATELET 256 x1000/uL (130-400); RED BLOOD CELL COUNT 4.24 mill/uL (4.2-5.4); RED CELL DISTRIBUTION WIDTH 14.4 % (11.6-14.6)
[2021-02-09 01:15] LABS: CHLORIDE 106 mEq/L (98-107)
[2021-02-09 01:30] LABS: CLARITY URINE CLEAR (CLEAR); COLOR URINE YELLOW (YELLOW); KETONES URINE NEGATIVE (NEGATIVE); LEUKOCYTE ESTERASE URINE 1+ (NEGATIVE); NITRITE URINE NEGATIVE (NEGATIVE); OCCULT BLOOD URINE NEGATIVE (NEGATIVE); PROTEIN URINE NEGATIVE (NEGATIVE); SPECIFIC GRAVITY URINE 1.013 (1.005-1.030); UROBILINOGEN URINE 0.2 E.U./dL (0.2-1.0)
[2021-02-09] MEDS ORDERED: LORAZEPAM 0.5MG TABLET PO NR (02:30)
[2021-02-09] MEDS ORDERED: ONDANSETRON 4MG ODT PO NR (02:30)
[2021-02-09] MEDS ORDERED: METOCLOPRAMIDE HCL 10MG TABLET PO ONE (04:00)
[2021-02-09] MEDS ORDERED: HYDROCODONE/ACETAMINOPHEN 5/325MG TABLET PO NR (04:30)
[2021-02-09] MEDS ORDERED: FAMO40TA70 PO (05:52)
[2021-02-09] MEDS ORDERED: PROT20 MT (05:52)
[2021-02-09 06:00] VITALS: BP 95/70
[2021-02-09] MEDS ORDERED: ONDA4TAB11 PO (06:40)
== END 2021-02-09 06:13 | disposition home or self-care (01) ==
LOC: ER 20:51
DX: K29.70 Gastritis, unspecified, without bleeding (principal); F41.9 Anxiety disorder, unspecified; J45.909 Unspecified asthma, uncomplicated; F32.9 Major depressive disorder, single episode, unspecified; Z79.899 Other long term (current) drug therapy
CPT/HCPCS: 36415; 80053; 81003; 83690; 84484; 85025; 93005; 99285; J8597; Q0162

== ENCOUNTER 2021-02-28 08:29 | Emergency (ER) | payer OTHER, MEDICAID ==
[~2021-02-28] VITALS: Ht 160 cm; Wt 45.0 kg
[2021-02-28] MEDS ORDERED: ALBUTEROL (0.083%) 2.5MG/3ML NEB HHN STA (08:46)
[2021-02-28] MEDS ORDERED: IPRATROPIUM BROMIDE (0.02%) 0.5MG/2.5ML NEB HHN STA ×2 (08:46)
[2021-02-28] MEDS ORDERED: PREDNISONE 20MG TABLET PO STA (08:46)
[2021-02-28] MEDS ORDERED: ALBU6.7H9 INH (10:39)
[2021-02-28] MEDS ORDERED: P20 MT (10:39)
[2021-02-28] MEDS ORDERED: AMOX-424 MT (10:39)
[2021-02-28] MEDS ORDERED: ALBU2.5V13 NEB (10:39)
[2021-02-28 10:45] VITALS: BP 123/62
== END 2021-02-28 10:48 | disposition home or self-care (01) ==
LOC: ER 08:29
DX: J45.901 Unspecified asthma with (acute) exacerbation (principal); I10 Essential (primary) hypertension; Z88.5 Allergy status to narcotic agent; Z88.1 Allergy status to other antibiotic agents; Z79.899 Other long term (current) drug therapy
CPT/HCPCS: 71045; 93005; 94644; 99285; J7512

== ENCOUNTER 2021-03-25 06:45 | Emergency (ER) | payer MEDICARE, MEDICAID ==
[~2021-03-25] VITALS: Ht 160 cm; Wt 44.0 kg
[~2021-03-25 06:45] MED LIST changes: +ALBU2.5V13 NEB; +ALBU6.7H9 INH; +AMOX-424 MT; +P20 MT
[2021-03-25 07:37] LABS: HEMATOCRIT. 37.1 % (36.0-48.0); HEMOGLOBIN. 12.5 g/dL (12.0-16.0); MEAN CORPUSCULAR HEMOGLOBIN 29.5 pg (28.0-32.0); MEAN CORPUSCULAR VOLUME 87.6 fL (81.0-99.0); MEAN PLATELET VOLUME 9.8 fl (7.4-10.4); PLATELET 206 x1000/uL (130-400); RED BLOOD CELL COUNT 4.24 mill/uL (4.2-5.4); RED CELL DISTRIBUTION WIDTH 15.1 % (11.6-14.6)
[2021-03-25 07:42] LABS: CHLORIDE 107 mEq/L (98-107)
[2021-03-25 08:49] LABS: PLATELET ESTIMATE NORMAL
[2021-03-25] MEDS ORDERED: SALM50DI INH (09:37)
[2021-03-25] MEDS ORDERED: CEPH250C2 MT (09:37)
[2021-03-25] MEDS ORDERED: FLUT12AE7 INH (09:37)
[2021-03-25 10:40] VITALS: BP 123/78
== END 2021-03-25 11:00 | disposition home or self-care (01) ==
LOC: ER 06:45
DX: J45.909 Unspecified asthma, uncomplicated (principal); M79.10 Myalgia, unspecified site; R07.89 Other chest pain; D57.1 Sickle-cell disease without crisis; F32.9 Major depressive disorder, single episode, unspecified; Z79.899 Other long term (current) drug therapy; Z20.822 Contact with and (suspected) exposure to COVID-19
CPT/HCPCS: 36415; 71045; 80053; 84484; 85025; 87426; 93005; 99285

== ENCOUNTER 2021-05-03 19:42 | Emergency (ER) | payer MEDICARE, MEDICAID ==
[~2021-05-03] VITALS: Ht 157.5 cm; Wt 46.0 kg
[~2021-05-03 19:42] MED LIST changes: +CEPH250C2 MT; +FLUT12AE7 INH; +SALM50DI INH
[2021-05-04] MEDS ORDERED: ONDANSETRON HCL 4MG/2ML INJ IV STA (00:28)
[2021-05-04] MEDS ORDERED: KETOROLAC 30MG/ML VIAL IV STA (00:28)
[2021-05-04] MEDS ORDERED: SODIUM CHLORIDE 0.9% 1,000 ML IV ONE (00:30)
[2021-05-04] MEDS ORDERED: VISCOUS LIDOCAINE 2% 15 ML UDC PO ONE (00:30)
[2021-05-04] MEDS ORDERED: MAGNESIUM/ALUMINUM HYDROXIDE/SIMETHICONE 30ML UDC PO ONE (00:30)
[2021-05-04 01:22] LABS: BASOPHILS % 0.7 % (0.0-2.0); EOSINOPHILS % 5.8 % (0.0-5.0); HEMATOCRIT. 37.9 % (36.0-48.0); HEMOGLOBIN. 13.1 g/dL (12.0-16.0); LYMPHOCYTES % 45.1 % (20.0-50.0); MEAN CORPUSCULAR HEMOGLOBIN 30.4 pg (28.0-32.0); MEAN CORPUSCULAR VOLUME 88.2 fL (81.0-99.0); MEAN PLATELET VOLUME 9.6 fl (7.4-10.4); MONOCYTES % 7.7 % (2.0-8.0); NEUTROPHILS % 40.7 % (40.0-76.0); PLATELET 232 x1000/uL (130-400)
[2021-05-04 01:25] LABS: CHLORIDE 106 mEq/L (98-107)
[2021-05-04] MEDS ORDERED: ACETAMINOPHEN 325MG TABLET PO ONE (02:00)
[2021-05-04] MEDS ORDERED: METOCLOPRAMIDE HCL 10MG/2ML VIAL IV ONE (02:00)
[2021-05-04 03:15] LABS: CLARITY URINE CLEAR (CLEAR); COLOR URINE YELLOW (YELLOW); KETONES URINE NEGATIVE (NEGATIVE); LEUKOCYTE ESTERASE URINE NEGATIVE (NEGATIVE); NITRITE URINE NEGATIVE (NEGATIVE); OCCULT BLOOD URINE NEGATIVE (NEGATIVE); PROTEIN URINE NEGATIVE (NEGATIVE); UROBILINOGEN URINE 0.2 E.U./dL (0.2-1.0)
[2021-05-04] MEDS ORDERED: AMOX-424 MT (03:24)
[2021-05-04 03:35] VITALS: BP 108/48
== END 2021-05-04 04:12 | disposition home or self-care (01) ==
LOC: ER 19:42
DX: J32.9 Chronic sinusitis, unspecified (principal); R51.9 Headache, unspecified; R09.81 Nasal congestion; F41.9 Anxiety disorder, unspecified; J45.909 Unspecified asthma, uncomplicated; F32.9 Major depressive disorder, single episode, unspecified; Z79.899 Other long term (current) drug therapy
CPT/HCPCS: 36415; 71045; 80053; 81003; 83690; 83880; 84484; 85025; 87804; 93005; 96361; 96374; 96375; 99285; J1885; J2405; J2765; J7030

== ENCOUNTER 2021-05-22 10:54 | Emergency (ER) | payer MEDICARE, MEDICAID ==
[~2021-05-22] VITALS: Ht 157.5 cm; Wt 44.0 kg
[2021-05-22] MEDS ORDERED: ACETAMINOPHEN 325MG TABLET PO ONE (13:30)
[2021-05-22 15:03] LABS: CHLORIDE 108 mEq/L (98-107)
[2021-05-22 15:52] LABS: BASOPHILS % 0.6 % (0.0-2.0); EOSINOPHILS % 7.5 % (0.0-5.0); HEMATOCRIT. 37.7 % (36.0-48.0); HEMOGLOBIN. 12.6 g/dL (12.0-16.0); MEAN CORPUSCULAR HEMOGLOBIN 29.8 pg (28.0-32.0); MEAN CORPUSCULAR VOLUME 89.7 fL (81.0-99.0); MEAN PLATELET VOLUME 10.2 fl (7.4-10.4); MONOCYTES % 5.9 % (2.0-8.0); PLATELET 220 x1000/uL (130-400); RED BLOOD CELL COUNT 4.21 mill/uL (4.2-5.4); RED CELL DISTRIBUTION WIDTH 14.5 % (11.6-14.6)
[2021-05-22 16:55] LABS: CLARITY URINE CLEAR (CLEAR); COLOR URINE YELLOW (YELLOW); KETONES URINE NEGATIVE (NEGATIVE); LEUKOCYTE ESTERASE URINE NEGATIVE (NEGATIVE); NITRITE URINE NEGATIVE (NEGATIVE); OCCULT BLOOD URINE NEGATIVE (NEGATIVE); PROTEIN URINE NEGATIVE (NEGATIVE); SPECIFIC GRAVITY URINE 1.012 (1.005-1.030); UROBILINOGEN URINE 0.2 E.U./dL (0.2-1.0)
[2021-05-22] MEDS ORDERED: ONDANSETRON HCL 4MG TABLET PO ONE (19:00)
[2021-05-22 19:20] VITALS: BP 116/64
== END 2021-05-22 19:33 | disposition home or self-care (01) ==
LOC: ER 10:54
DX: J06.9 Acute upper respiratory infection, unspecified (principal); M54.50 Low back pain, unspecified; D57.1 Sickle-cell disease without crisis; I10 Essential (primary) hypertension; J45.909 Unspecified asthma, uncomplicated; F41.9 Anxiety disorder, unspecified; F32.A Depression, unspecified; Z20.822 Contact with and (suspected) exposure to COVID-19; Z88.5 Allergy status to narcotic agent; Z88.1 Allergy status to other antibiotic agents
CPT/HCPCS: 36415; 71045; 80053; 81003; 84484; 85025; 93005; 99285; Q0162

== ENCOUNTER 2021-08-08 20:07 | Emergency (ER) | payer MEDICARE, MEDICAID ==
[~2021-08-08] VITALS: Ht 157.5 cm; Wt 47.0 kg
[2021-08-08] MEDS ORDERED: HYDROCODONE/ACETAMINOPHEN 10/325MG TABLET PO ONE (21:30)
[2021-08-08 21:59] LABS: CLARITY URINE CLEAR (CLEAR); COLOR URINE YELLOW (YELLOW); KETONES URINE NEGATIVE (NEGATIVE); LEUKOCYTE ESTERASE URINE 1+ (NEGATIVE); NITRITE URINE NEGATIVE (NEGATIVE); OCCULT BLOOD URINE NEGATIVE (NEGATIVE); PH URINE 7.5 (4.5-8.0); PROTEIN URINE NEGATIVE (NEGATIVE); SPECIFIC GRAVITY URINE 1.014 (1.005-1.030); UROBILINOGEN URINE 0.2 E.U./dL (0.2-1.0)
[2021-08-08] MEDS ORDERED: SODIUM CHLORIDE 0.9% 1,000 ML IV ONE (22:15)
[2021-08-08] MEDS ORDERED: CEPHALEXIN 250MG CAPSULE PO ONE (22:15)
[2021-08-08 23:11] LABS: HEMATOCRIT. 35.7 % (36.0-48.0); HEMOGLOBIN. 12.3 g/dL (12.0-16.0); MEAN CORPUSCULAR HEMOGLOBIN 31.2 pg (28.0-32.0); MEAN CORPUSCULAR VOLUME 90.7 fL (81.0-99.0); PLATELET 228 x1000/uL (130-400); RED BLOOD CELL COUNT 3.93 mill/uL (4.2-5.4); RED CELL DISTRIBUTION WIDTH 13.7 % (11.6-14.6)
[2021-08-08 23:17] LABS: CHLORIDE 109 mEq/L (98-107)
[2021-08-08] MEDS ORDERED: CEPH500C2 MT (23:25)
[2021-08-08] MEDS ORDERED: IBUP-2029 MT (23:26)
[2021-08-09 00:20] VITALS: BP 135/79
[2021-08-09 03:51] LABS: PLATELET ESTIMATE NORMAL
== END 2021-08-09 00:20 | disposition home or self-care (01) ==
LOC: ER 20:07
DX: N39.0 Urinary tract infection, site not specified (principal); F32.A Depression, unspecified; J45.909 Unspecified asthma, uncomplicated; D57.1 Sickle-cell disease without crisis; Z88.1 Allergy status to other antibiotic agents; Z88.3 Allergy status to other anti-infective agents; Z91.041 Radiographic dye allergy status
CPT/HCPCS: 36415; 71045; 80053; 81003; 84484; 85025; 93005; 99285; J7030

== ENCOUNTER 2021-10-07 15:51 | Emergency (ER) | payer MEDICAID, MEDICARE ==
[~2021-10-07] VITALS: Ht 162.6 cm; Wt 54.0 kg
[~2021-10-07 15:51] MED LIST changes: +CEPH500C2 MT; +IBUP-2029 MT
[2021-10-07] MEDS ORDERED: LORAZEPAM 2MG/ML CPJ IV ONE (18:00)
[2021-10-07] MEDS ORDERED: SODIUM CHLORIDE 0.9% 1,000 ML IV ONE (18:00)
[2021-10-07 18:25] LABS: BASOPHILS % 0.8 % (0.0-2.0); EOSINOPHILS % 12.1 % (0.0-5.0); HEMATOCRIT. 39.2 % (36.0-48.0); HEMOGLOBIN. 13.1 g/dL (12.0-16.0); LYMPHOCYTES % 32.4 % (20.0-50.0); MEAN CORPUSCULAR HEMOGLOBIN 30.9 pg (28.0-32.0); MEAN CORPUSCULAR VOLUME 92.6 fL (81.0-99.0); MEAN PLATELET VOLUME 10.3 fl (7.4-10.4); MONOCYTES % 5.5 % (2.0-8.0); NEUTROPHILS % 49.2 % (40.0-76.0); PLATELET 204 x1000/uL (130-400); RED BLOOD CELL COUNT 4.24 mill/uL (4.2-5.4); RED CELL DISTRIBUTION WIDTH 14.4 % (11.6-14.6)
[2021-10-07 18:29] LABS: CHLORIDE 108 mEq/L (98-107)
[2021-10-07 18:50] LABS: CLARITY URINE CLEAR (CLEAR); COLOR URINE YELLOW (YELLOW); KETONES URINE NEGATIVE (NEGATIVE); LEUKOCYTE ESTERASE URINE NEGATIVE (NEGATIVE); NITRITE URINE NEGATIVE (NEGATIVE); OCCULT BLOOD URINE NEGATIVE (NEGATIVE); PH URINE 7.5 (4.5-8.0); PROTEIN URINE NEGATIVE (NEGATIVE); SPECIFIC GRAVITY URINE 1.011 (1.005-1.030); UROBILINOGEN URINE 0.2 E.U./dL (0.2-1.0)
[2021-10-07 19:07] LABS: *AMPHETAMINES SCREEN URINE NEGATIVE (NEGATIVE); *BARBITURATES SCREEN URINE NEGATIVE (NEGATIVE); *BENZODIAZEPINES SCREEN URINE NEGATIVE (NEGATIVE); *COCAINE SCREEN URINE NEGATIVE (NEGATIVE); CANNABINOID URINE SCREEN NEGATIVE (NEGATIVE); METHADONE URINE SCREEN NEGATIVE (NEGATIVE); OPIATES URINE SCREEN NEGATIVE (NEGATIVE); PHENCYCLIDINE URINE SCREEN NEGATIVE (NEGATIVE)
[2021-10-07] MEDS ORDERED: KETOROLAC 30MG/ML VIAL IV ONE (19:15)
[2021-10-07 19:37] VITALS: BP 104/63
[2021-10-07] MEDS ORDERED: METH-653 MT ×2 (19:53→20:20)
[2021-10-07] MEDS ORDERED: ALBU6.7H9 INH ×2 (19:53→20:20)
[2021-10-07] MEDS ORDERED: LORA-249 MT ×2 (19:53→20:20)
== END 2021-10-07 20:34 | disposition home or self-care (01) ==
LOC: ER 15:51
DX: F41.9 Anxiety disorder, unspecified (principal); M62.838 Other muscle spasm; J45.909 Unspecified asthma, uncomplicated; Z79.899 Other long term (current) drug therapy; Z88.5 Allergy status to narcotic agent; Z88.1 Allergy status to other antibiotic agents
CPT/HCPCS: 36415; 80048; 80305; 81003; 82962; 85025; 93005; 96361; 96374; 96375; 99284; J1885; J2060; J7030

== ENCOUNTER 2021-10-13 07:55 | Emergency (ER) | payer MEDICARE, MEDICAID ==
[~2021-10-13] VITALS: Ht 160 cm; Wt 44.0 kg
[~2021-10-13 07:55] MED LIST changes: +METH-653 MT
[2021-10-13] MEDS ORDERED: ALBUTEROL 6.7GM HFA INHALER ORI ONE (08:45)
[2021-10-13] MEDS ORDERED: IPRATROPIUM BROMIDE (0.02%) 0.5MG/2.5ML NEB HHN STA (09:32)
[2021-10-13] MEDS ORDERED: ALBUTEROL (0.083%) 2.5MG/3ML NEB HHN STA (09:32)
[2021-10-13] MEDS ORDERED: ONDANSETRON HCL 4MG/2ML INJ IV ONE (09:45)
[2021-10-13 09:53] LABS: EOSINOPHILS % 12.9 % (0.0-5.0); HEMATOCRIT. 38.6 % (36.0-48.0); HEMOGLOBIN. 12.8 g/dL (12.0-16.0); LYMPHOCYTES % 28.9 % (20.0-50.0); MEAN CORPUSCULAR HEMOGLOBIN 30.3 pg (28.0-32.0); MONOCYTES % 4.5 % (2.0-8.0); NEUTROPHILS % 52.7 % (40.0-76.0); PLATELET 233 x1000/uL (130-400); RED BLOOD CELL COUNT 4.24 mill/uL (4.2-5.4); RED CELL DISTRIBUTION WIDTH 14.1 % (11.6-14.6)
[2021-10-13 09:56] LABS: CHLORIDE 106 mEq/L (98-107)
[2021-10-13] MEDS ORDERED: VISCOUS LIDOCAINE 2% 15 ML UDC PO STA (10:32)
[2021-10-13] MEDS ORDERED: DICYCLOMINE 10 MG/5 ML ORAL SYR PO STA (10:32)
[2021-10-13] MEDS ORDERED: MAGNESIUM/ALUMINUM HYDROXIDE/SIMETHICONE 30ML UDC PO STA (10:32)
[2021-10-13] MEDS ORDERED: ONDANSETRON 4MG ODT PO STA (10:32)
[2021-10-13] MEDS ORDERED: FLUT9.9S BOTHNSTRLS (10:43)
[2021-10-13] MEDS ORDERED: ONDA4TAB5 PO (10:43)
[2021-10-13] MEDS ORDERED: FAMOTIDINE 20MG TABLET PO ONE (10:45)
[2021-10-13] MEDS ORDERED: TOPUD PO (10:45)
[2021-10-13] MEDS ORDERED: ALBU6.7H9 INH (10:53)
[2021-10-13 11:01] VITALS: BP 107/70
== END 2021-10-13 11:01 | disposition home or self-care (01) ==
LOC: ER 07:55
DX: B34.9 Viral infection, unspecified (principal); R11.0 Nausea; Z20.822 Contact with and (suspected) exposure to COVID-19; R94.31 Abnormal electrocardiogram [ECG] [EKG]; J45.909 Unspecified asthma, uncomplicated; D57.1 Sickle-cell disease without crisis; Z86.59 Personal history of other mental and behavioral disorders; Z88.5 Allergy status to narcotic agent; Z88.1 Allergy status to other antibiotic agents
CPT/HCPCS: 36415; 71045; 80053; 85025; 87426; 93005; 94664; 96374; 99285; C9803; J2405

== ENCOUNTER 2021-10-13 22:28 | Inpatient (IN) | payer MEDICARE, MEDICAID ==
[~2021-10-13] VITALS: Ht 160 cm; Wt 44.0 kg
[~2021-10-13 22:28] MED LIST changes: +ONDA4TAB5 PO
[2021-10-14] MEDS ORDERED: ASPIRIN 81MG TABLET PO ONE (00:15)
[2021-10-14] MEDS: NITROGLYCERIN 0.4MG TABLET SL SL PRN ×2 (00:23→00:28)
[2021-10-14 00:35] LABS: HEMATOCRIT. 38.9 % (36.0-48.0); MEAN CORPUSCULAR HEMOGLOBIN 30.6 pg (28.0-32.0); MEAN CORPUSCULAR VOLUME 91.6 fL (81.0-99.0); MEAN PLATELET VOLUME 9.3 fl (7.4-10.4); PLATELET 233 x1000/uL (130-400); RED BLOOD CELL COUNT 4.25 mill/uL (4.2-5.4); RED CELL DISTRIBUTION WIDTH 14.4 % (11.6-14.6)
[2021-10-14 00:42] LABS: CHLORIDE 107 mEq/L (98-107)
[2021-10-14 00:43] LABS: HCG SCREEN NEGATIVE
[2021-10-14] MEDS ORDERED: MORPHINE SULFATE 4 MG/ML CPJ (NOT FOR IM USE) IV ONE (02:00)
[2021-10-14] MEDS ORDERED: MORPHINE SULFATE 4 MG/ML CPJ (NOT FOR IM USE) IV SCH (05:00)
[2021-10-14 07:16] LABS: PLATELET ESTIMATE NORMAL
[2021-10-14] MEDS ORDERED: DIPHENHYDRAMINE 50MG/ML VIAL IV PRN (09:15)
[2021-10-14] MEDS ORDERED: ACETAMINOPHEN 325MG TABLET PO PRN (09:15)
[2021-10-14] MEDS ORDERED: IPRATROPIUM/ALBUTEROL 0.5-3(2.5)MG/3ML NEB HHN PRN (09:15)
[2021-10-14] MEDS ORDERED: CLONIDINE 0.1MG TABLET PO PRN (09:15)
[2021-10-14] MEDS ORDERED: NALOXONE HCL 0.4MG/ML VIAL IV PRN (09:30)
[2021-10-14] MEDS ORDERED: ENOXAPARIN 40MG/0.4ML SYR SUBCUT SCH (10:00)
[2021-10-14] MEDS: MORPHINE SULFATE 2 MG/ML CPJ (NOT FOR IM USE) IV PRN ×2 (10:42→20:32)
[2021-10-14 10:58] VITALS: BP 118/63
[2021-10-14 12:00] VITALS: BP 110/50
[2021-10-14] MEDS: ONDANSETRON HCL 4MG/2ML INJ IV PRN ×2 (13:01→20:32)
[2021-10-14 16:00] VITALS: BP 90/62
[2021-10-14] MEDS: SODIUM CHLORIDE 0.9% 1,000 ML IV SCH (16:08)
[2021-10-14 20:00] VITALS: BP 84/54
[2021-10-15] VITALS: BP 78/46
[2021-10-15] MEDS: SODIUM CHLORIDE 0.9% 1,000 ML IV SCH ×3 (01:38→20:31)
[2021-10-15 04:00] VITALS: BP 78/46
[2021-10-15 07:23] LABS: HEMATOCRIT. 36.9 % (36.0-48.0); HEMOGLOBIN. 12.4 g/dL (12.0-16.0); MEAN CORPUSCULAR HEMOGLOBIN 30.5 pg (28.0-32.0); MEAN PLATELET VOLUME 10.1 fl (7.4-10.4); PLATELET 201 x1000/uL (130-400); RED BLOOD CELL COUNT 4.05 mill/uL (4.2-5.4)
[2021-10-15 07:40] LABS: CHLORIDE 107 mEq/L (98-107)
[2021-10-15 08:00] VITALS: BP 111/60
[2021-10-15] MEDS: ENOXAPARIN 30MG/0.3ML SYR SUBCUT SCH (08:11)
[2021-10-15] MEDS: ONDANSETRON HCL 4MG/2ML INJ IV PRN (08:11)
[2021-10-15] MEDS ORDERED: KETOROLAC 15MG/ML VIAL IV PRN (10:00)
[2021-10-15] MEDS ORDERED: KETOROLAC 30MG/ML VIAL IV PRN (10:00)
[2021-10-15] MEDS: KETOROLAC 15MG/ML VIAL IV PRN ×2 (10:38→16:59)
[2021-10-15 12:00] VITALS: BP 92/52
[2021-10-15 16:00] VITALS: BP 90/54
[2021-10-15 20:00] VITALS: BP 98/52
[2021-10-16] VITALS: BP 84/48
[2021-10-16] MEDS: KETOROLAC 15MG/ML VIAL IV PRN ×2 (02:05→08:22)
[2021-10-16] MEDS: ONDANSETRON HCL 4MG/2ML INJ IV PRN ×2 (02:15→08:22)
[2021-10-16 04:00] VITALS: BP 95/62
[2021-10-16] MEDS: SODIUM CHLORIDE 0.9% 1,000 ML IV SCH (06:51)
[2021-10-16 06:54] LABS: HEMATOCRIT. 33.1 % (36.0-48.0); HEMOGLOBIN. 10.9 g/dL (12.0-16.0); MEAN CORPUSCULAR HEMOGLOBIN 30.6 pg (28.0-32.0); MEAN CORPUSCULAR VOLUME 92.8 fL (81.0-99.0); MEAN PLATELET VOLUME 10.5 fl (7.4-10.4); PLATELET 169 x1000/uL (130-400); RED BLOOD CELL COUNT 3.57 mill/uL (4.2-5.4); RED CELL DISTRIBUTION WIDTH 13.9 % (11.6-14.6)
[2021-10-16 07:13] LABS: PLATELET ESTIMATE NORMAL
[2021-10-16 07:31] LABS: CHLORIDE 111 mEq/L (98-107)
[2021-10-16 07:59] VITALS: BP 104/65
[2021-10-16] MEDS: ENOXAPARIN 30MG/0.3ML SYR SUBCUT SCH (08:22)
[2021-10-16] MEDS ORDERED: HYDROCODONE/ACETAMINOPHEN 5/325MG TABLET PO PRN (09:45)
[2021-10-16 09:54] VITALS: BP 65/65
[2021-10-16 19:11] LABS: PLATELET ESTIMATE NORMAL
== END 2021-10-16 12:00 | disposition home or self-care (01) | DRG 206 ==
LOC: ER 22:28 → 7WST 10-14 06:49 → EDBEDREQ 10-14 06:50 → ENRESERV 10-14 07:14
PROVIDERS: ADMIT Internal Medicine; ATTEND Internal Medicine
DX: M94.0 Chondrocostal junction syndrome [Tietze] (principal); D57.1 Sickle-cell disease without crisis; F41.9 Anxiety disorder, unspecified; I95.9 Hypotension, unspecified; F32.A Depression, unspecified; J45.909 Unspecified asthma, uncomplicated; Z79.51 Long term (current) use of inhaled steroids; Z88.1 Allergy status to other antibiotic agents; Z88.8 Allergy status to other drugs, medicaments and biological substances; Z79.899 Other long term (current) drug therapy
CPT/HCPCS: 36415; 71045; 72110; 80048; 80053; 83605; 83880; 84484; 84703; 85025; 85044; 86850; 86900; 93005; 93970; 99285; J1650; J1885; J2270; J2405; J7030

== ENCOUNTER 2021-12-26 10:23 | Inpatient (IN) | payer MEDICARE, MEDICAID ==
[~2021-12-26] VITALS: Ht 157.5 cm; Wt 46.4 kg
[2021-12-26] MEDS ORDERED: ALBUTEROL (0.083%) 2.5MG/3ML NEB HHN STA (11:01)
[2021-12-26] MEDS ORDERED: ACETAMINOPHEN 325MG TABLET PO STA (11:01)
[2021-12-26] MEDS ORDERED: SODIUM CHLORIDE 0.9% 1000ML BAG (SEPSIS BOLUS) IV ONE (11:15)
[2021-12-26 12:06] LABS: BASOPHILS % 0.7 % (0.0-2.0); EOSINOPHILS % 8.5 % (0.0-5.0); HEMATOCRIT. 36.3 % (36.0-48.0); HEMOGLOBIN. 12.6 g/dL (12.0-16.0); LYMPHOCYTES % 15.5 % (20.0-50.0); MEAN CORPUSCULAR HEMOGLOBIN 30.7 pg (28.0-32.0); MEAN CORPUSCULAR VOLUME 88.4 fL (81.0-99.0); MEAN PLATELET VOLUME 10.1 fl (7.4-10.4); NEUTROPHILS % 70.3 % (40.0-76.0); PLATELET 230 x1000/uL (130-400); RED BLOOD CELL COUNT 4.11 mill/uL (4.2-5.4); RED CELL DISTRIBUTION WIDTH 13.7 % (11.6-14.6)
[2021-12-26 12:09] LABS: CHLORIDE 103 mEq/L (98-107)
[2021-12-26 12:20] LABS: ETHANOL BLOOD < 10 mg/dL
[2021-12-26] MEDS ORDERED: ALBUTEROL (0.083%) 2.5MG/3ML NEB HHN NR (13:00)
[2021-12-26 13:06] LABS: *AMPHETAMINES SCREEN URINE NEGATIVE (NEGATIVE); *BARBITURATES SCREEN URINE NEGATIVE (NEGATIVE); *BENZODIAZEPINES SCREEN URINE NEGATIVE (NEGATIVE); *COCAINE SCREEN URINE NEGATIVE (NEGATIVE); CANNABINOID URINE SCREEN NEGATIVE (NEGATIVE); METHADONE URINE SCREEN NEGATIVE (NEGATIVE); OPIATES URINE SCREEN NEGATIVE (NEGATIVE); PHENCYCLIDINE URINE SCREEN NEGATIVE (NEGATIVE)
[2021-12-26] MEDS ORDERED: MORPHINE SULFATE 4 MG/ML CPJ (NOT FOR IM USE) IV SCH (13:45)
[2021-12-26] MEDS ORDERED: CEFTRIAXONE 1 G PREMIX 50 ML IV SCH (13:45)
[2021-12-26] MEDS ORDERED: ALBUTEROL (0.083%) 2.5MG/3ML NEB HHN ONE (15:00)
[2021-12-26] MEDS ORDERED: MAGNESIUM/ALUMINUM HYDROXIDE/SIMETHICONE 30ML UDC PO PRN (18:45)
[2021-12-26] MEDS ORDERED: GUAIFENESIN 200MG/10ML SUGAR FREE UDC PO PRN (18:45)
[2021-12-26] MEDS ORDERED: CLONIDINE 0.1MG TABLET PO PRN (18:45)
[2021-12-26] MEDS ORDERED: ZOLPIDEM TARTRATE 5MG TABLET PO PRN (18:45)
[2021-12-26] MEDS ORDERED: IPRATROPIUM/ALBUTEROL 0.5-3(2.5)MG/3ML NEB HHN PRN (18:45)
[2021-12-26] MEDS ORDERED: ACETAMINOPHEN 325MG TABLET PO PRN ×2 (18:45)
[2021-12-26] MEDS ORDERED: LEVOFLOXACIN 500MG PREMIX 100 ML IV SCH (18:45)
[2021-12-26] MEDS: DIPHENHYDRAMINE 50MG/ML VIAL IV PRN (19:28)
[2021-12-26] MEDS ORDERED: IOHEXOL-300 100 ML BOTTLE ONE (20:34)
[2021-12-26] MEDS: MORPHINE SULFATE 2 MG/ML CPJ (NOT FOR IM USE) IV PRN (21:09)
[2021-12-26] MEDS ORDERED: NALOXONE HCL 0.4MG/ML VIAL IV PRN (21:45)
[2021-12-26 23:19] VITALS: BP 125/77
[2021-12-27] VITALS: BP 100/57
[2021-12-27] MEDS: SODIUM CHLORIDE 0.9% INJ 3ML FLUSH IVF SCH ×4 (00:38→21:28)
[2021-12-27] MEDS: LORAZEPAM 1MG TABLET PO PRN ×2 (00:43→13:01)
[2021-12-27 04:00] VITALS: BP 108/63
[2021-12-27 08:00] VITALS: BP 96/52
[2021-12-27] MEDS: HYDROCODONE/ACETAMINOPHEN 10/325MG TABLET PO PRN ×2 (08:22→18:20)
[2021-12-27] MEDS: GUAIFENESIN 600MG ER TABLET PO SCH ×2 (08:22→21:28)
[2021-12-27] MEDS: DIPHENHYDRAMINE 50MG/ML VIAL IV PRN (10:14)
[2021-12-27 12:00] VITALS: BP 99/56
[2021-12-27] MEDS: PROMETHAZINE/DEXTROMETHORPHAN 6.25-15MG/5ML BOTTLE 120ML PO PRN (13:01)
[2021-12-27 16:00] VITALS: BP 99/57
[2021-12-27] MEDS: PREDNISONE 20MG TABLET PO SCH (16:00)
[2021-12-27] MEDS: LEVOFLOXACIN 500MG PREMIX 100 ML IV SCH (18:00)
[2021-12-27] MEDS: DOCUSATE SODIUM 100MG CAPSULE PO SCH (18:00)
[2021-12-27] MEDS ORDERED: SODIUM CHLORIDE 10% FOR INH 15ML VIAL NEB INH NR (19:00)
[2021-12-27 20:00] VITALS: BP 110/60
[2021-12-27] MEDS: MORPHINE SULFATE 2 MG/ML CPJ (NOT FOR IM USE) IV PRN (21:29)
[2021-12-28] VITALS: BP 100/57
[2021-12-28] MEDS ORDERED: SODIUM CHLORIDE 10% FOR INH 15ML VIAL NEB INH NR (01:45)
[2021-12-28 04:00] VITALS: BP 102/56
[2021-12-28] MEDS: MORPHINE SULFATE 2 MG/ML CPJ (NOT FOR IM USE) IV PRN (05:50)
[2021-12-28] MEDS: SODIUM CHLORIDE 0.9% INJ 3ML FLUSH IVF SCH ×3 (05:50→21:26)
[2021-12-28] MEDS: PROMETHAZINE/DEXTROMETHORPHAN 6.25-15MG/5ML BOTTLE 120ML PO PRN (05:56)
[2021-12-28 08:00] VITALS: BP 112/65
[2021-12-28] MEDS ORDERED: PREDNISONE 20MG TABLET PO SCH (09:00)
[2021-12-28] MEDS: HYDROCODONE/ACETAMINOPHEN 10/325MG TABLET PO PRN ×2 (09:17→17:24)
[2021-12-28] MEDS: DOCUSATE SODIUM 100MG CAPSULE PO SCH ×2 (09:17→17:23)
[2021-12-28] MEDS: PREDNISONE 20MG TABLET PO SCH (09:17)
[2021-12-28] MEDS: GUAIFENESIN 600MG ER TABLET PO SCH ×2 (09:17→20:02)
[2021-12-28 12:00] VITALS: BP 102/61
[2021-12-28] MEDS: LORAZEPAM 1MG TABLET PO PRN (14:15)
[2021-12-28 15:46] VITALS: BP 107/60
[2021-12-28] MEDS: LEVOFLOXACIN 500MG PREMIX 100 ML IV SCH (17:23)
[2021-12-28 18:26] LABS: HEMATOCRIT 35.7 % (36.0-48.0); MEAN CORPUSCULAR HEMOGLOBIN 29.9 pg (28.0-32.0); MEAN CORPUSCULAR VOLUME 88.7 fL (81.0-99.0); PLATELET 271 x1000/uL (130-400); RED BLOOD CELL COUNT 4.02 mill/uL (4.2-5.4); RED CELL DISTRIBUTION WIDTH 13.8 % (11.6-14.6)
[2021-12-28 18:40] LABS: CHLORIDE 102 mEq/L (98-107)
[2021-12-28 20:00] VITALS: BP 103/57
[2021-12-28] MEDS: DIPHENHYDRAMINE 50MG/ML VIAL IV PRN (20:02)
[2021-12-29] VITALS: BP 105/65
[2021-12-29 04:00] VITALS: BP 98/60
[2021-12-29] MEDS ORDERED: SODIUM CHLORIDE 10% FOR INH 15ML VIAL NEB INH SCH (05:00)
[2021-12-29] MEDS: HYDROCODONE/ACETAMINOPHEN 10/325MG TABLET PO PRN ×2 (05:13→12:01)
[2021-12-29] MEDS: ONDANSETRON HCL 4MG/2ML INJ IV PRN ×2 (05:13→12:00)
[2021-12-29] MEDS: SODIUM CHLORIDE 0.9% INJ 3ML FLUSH IVF SCH ×2 (05:14→13:48)
[2021-12-29] MEDS: LORAZEPAM 1MG TABLET PO PRN ×2 (06:10→15:10)
[2021-12-29 08:00] VITALS: BP 102/69
[2021-12-29] MEDS: PREDNISONE 20MG TABLET PO SCH (08:31)
[2021-12-29] MEDS: GUAIFENESIN 600MG ER TABLET PO SCH (08:31)
[2021-12-29] MEDS: DOCUSATE SODIUM 100MG CAPSULE PO SCH (08:31)
[2021-12-29] MEDS: DIPHENHYDRAMINE 50MG/ML VIAL IV PRN (08:42)
[2021-12-29 12:00] VITALS: BP 102/64
[2021-12-29 16:00] VITALS: BP 97/55
[2021-12-29 17:24] VITALS: BP 97/55
[2021-12-29] MEDS ORDERED: ZOLPIDEM TARTRATE 5MG TABLET PO PRN (21:00)
== END 2021-12-29 18:15 | disposition home or self-care (01) | DRG 194 ==
LOC: ER 10:23 → 7EST 17:07 → EDBEDREQ 17:13 → ENRESERV 18:40 → 7EST 12-27 20:38
PROVIDERS: ADMIT Internal Medicine; ATTEND Internal Medicine
DX: J18.9 Pneumonia, unspecified organism (principal); B44.81 Allergic bronchopulmonary aspergillosis; D57.1 Sickle-cell disease without crisis; D72.10 Eosinophilia, unspecified; I44.4 Left anterior fascicular block; F41.1 Generalized anxiety disorder; F32.A Depression, unspecified; R07.89 Other chest pain; I10 Essential (primary) hypertension; J45.909 Unspecified asthma, uncomplicated; Z82.49 Family history of ischemic heart disease and other diseases of the circulatory system; Z20.822 Contact with and (suspected) exposure to COVID-19; Z88.5 Allergy status to narcotic agent; Z88.1 Allergy status to other antibiotic agents; Z88.6 Allergy status to analgesic agent
CPT/HCPCS: 36415; 71045; 71260; 80048; 80053; 80305; 80320; 83605; 83880; 84145; 84484; 85025; 85027; 85044; 86635; 87070; 87116; 87426; 93005; 94640; 99285; C9803; J0696; J1200; J1956; J2270; J2405; J7030; J7131; J7512; Q9967; G0480

== ENCOUNTER 2022-01-06 16:33 | Emergency (ER) | payer MEDICAID, MEDICARE ==
[~2022-01-06] VITALS: Ht 160 cm; Wt 46.0 kg
[2022-01-06] MEDS ORDERED: ALBUTEROL (0.083%) 2.5MG/3ML NEB HHN ONE (20:15)
[2022-01-06] MEDS ORDERED: IBUPROFEN 400MG TABLET PO ONE (20:15)
[2022-01-06] MEDS ORDERED: FLUT1DIS3 INH (23:35)
[2022-01-06] MEDS ORDERED: ALBU6.7H9 INH (23:35)
[2022-01-06] MEDS ORDERED: PROM473S4 MT (23:35)
[2022-01-06] MEDS ORDERED: P20 MT (23:35)
[2022-01-06] MEDS ORDERED: TUSSL MT (23:37)
[2022-01-06 23:47] VITALS: BP 10/56
== END 2022-01-06 23:50 | disposition home or self-care (01) ==
LOC: ER 16:33
DX: J45.909 Unspecified asthma, uncomplicated (principal); Z88.5 Allergy status to narcotic agent; Z88.1 Allergy status to other antibiotic agents; Z79.899 Other long term (current) drug therapy
CPT/HCPCS: 71045; 94640; 94664; 99283

== ENCOUNTER 2022-05-08 14:39 | Emergency (ER) | payer MEDICARE, MEDICAID ==
[~2022-05-08] VITALS: Ht 162.6 cm; Wt 47.0 kg
[~2022-05-08 14:39] MED LIST changes: +ALBU6.7H3 INH; -ALBU6.7H9 INH; +FLUT1DIS3 INH
[2022-05-08 14:48] VITALS: BP 132/75
[2022-05-08] MEDS ORDERED: LORAZEPAM 0.5MG TABLET PO ONE (18:30)
[2022-05-08 18:43] LABS: BASOPHILS % 0.8 % (0.0-2.0); EOSINOPHILS % 3.1 % (0.0-5.0); HEMATOCRIT. 42.9 % (36.0-48.0); HEMOGLOBIN. 14.5 g/dL (12.0-16.0); LYMPHOCYTES % 44.8 % (20.0-50.0); MEAN CORPUSCULAR HEMOGLOBIN 30.1 pg (28.0-32.0); MEAN CORPUSCULAR VOLUME 89.3 fL (81.0-99.0); MONOCYTES % 7.7 % (2.0-8.0); NEUTROPHILS % 43.6 % (40.0-76.0); PLATELET 225 x1000/uL (130-400); RED CELL DISTRIBUTION WIDTH 14.4 % (11.6-14.6)
[2022-05-08 18:57] LABS: CHLORIDE 102 mEq/L (98-107)
[2022-05-08] MEDS ORDERED: IBUPROFEN 600MG TABLET PO ONE (19:30)
[2022-05-08] MEDS ORDERED: ONDA4TAB50 MT (20:34)
[2022-05-08] MEDS ORDERED: IBUP-2029 MT (20:34)
== END 2022-05-08 22:01 | disposition home or self-care (01) ==
LOC: ER 14:39
DX: R07.89 Other chest pain (principal); F41.9 Anxiety disorder, unspecified; J45.909 Unspecified asthma, uncomplicated; F32.9 Major depressive disorder, single episode, unspecified; Z79.899 Other long term (current) drug therapy; Z88.5 Allergy status to narcotic agent
CPT/HCPCS: 36415; 71045; 80053; 82962; 83880; 84484; 85025; 93005; 99285

== ENCOUNTER 2022-06-08 13:32 | Emergency (ER) | payer MEDICARE, MEDICAID ==
[~2022-06-08] VITALS: Ht 160 cm; Wt 59.0 kg
[~2022-06-08 13:32] MED LIST changes: +ONDA4TAB50 MT
[2022-06-08 13:39] VITALS: BP 117/72
[2022-06-08 16:25] LABS: CHLORIDE 104 mEq/L (98-107)
[2022-06-08 16:28] LABS: BASOPHILS % 0.5 % (0.0-2.0); EOSINOPHILS % 9.4 % (0.0-5.0); HEMATOCRIT. 42.9 % (36.0-48.0); HEMOGLOBIN. 14.6 g/dL (12.0-16.0); MEAN CORPUSCULAR HEMOGLOBIN 30.6 pg (28.0-32.0); MEAN CORPUSCULAR VOLUME 89.8 fL (81.0-99.0); MONOCYTES % 5.2 % (2.0-8.0); NEUTROPHILS % 50.9 % (40.0-76.0); PLATELET 220 x1000/uL (130-400); RED BLOOD CELL COUNT 4.78 mill/uL (4.2-5.4); RED CELL DISTRIBUTION WIDTH 14.3 % (11.6-14.6)
[2022-06-08] MEDS ORDERED: VISCOUS LIDOCAINE 2% 15 ML UDC MM STA (17:51)
[2022-06-08] MEDS ORDERED: ONDANSETRON 4MG ODT PO ONE (18:00)
[2022-06-08] MEDS ORDERED: FAMOTIDINE 20MG TABLET PO ONE (18:00)
[2022-06-08] MEDS ORDERED: MAGNESIUM/ALUMINUM HYDROXIDE/SIMETHICONE 30ML UDC PO ONE (18:00)
[2022-06-08] MEDS ORDERED: FAMO-135 MT (18:38)
[2022-06-08] MEDS ORDERED: MAG-55 MT (18:38)
[2022-06-08] MEDS ORDERED: ONDA4TAB50 MT (18:38)
[2022-06-08] MEDS ORDERED: HYDR-459 MT (18:39)
== END 2022-06-08 19:22 | disposition home or self-care (01) ==
LOC: ER 13:32
DX: F41.9 Anxiety disorder, unspecified (principal); R11.0 Nausea; R10.9 Unspecified abdominal pain; J45.909 Unspecified asthma, uncomplicated; F32.9 Major depressive disorder, single episode, unspecified; Z79.899 Other long term (current) drug therapy
CPT/HCPCS: 36415; 71045; 80053; 84484; 85025; 99284; Q0162

== ENCOUNTER 2022-06-19 08:43 | Emergency (ER) | payer MEDICARE, MEDICAID ==
[~2022-06-19] VITALS: Ht 160 cm; Wt 46.0 kg
[~2022-06-19 08:43] MED LIST changes: +FAMO-135 MT; +MAG-55 MT; +MONT-46 PO; -MONT10TA21 PO
[2022-06-19] MEDS ORDERED: IPRATROPIUM/ALBUTEROL 0.5-3(2.5)MG/3ML NEB HHN ONE (09:30)
[2022-06-19] MEDS ORDERED: PREDNISONE 20MG TABLET PO ONE (09:30)
[2022-06-19 10:15] LABS: BASOPHILS % 0.2 % (0.0-2.0); EOSINOPHILS % 8.7 % (0.0-5.0); HEMATOCRIT. 39.8 % (36.0-48.0); HEMOGLOBIN. 13.3 g/dL (12.0-16.0); LYMPHOCYTES % 15.4 % (20.0-50.0); MEAN CORPUSCULAR HEMOGLOBIN 30.6 pg (28.0-32.0); MEAN CORPUSCULAR VOLUME 91.2 fL (81.0-99.0); NEUTROPHILS % 68.7 % (40.0-76.0); RED BLOOD CELL COUNT 4.36 mill/uL (4.2-5.4); RED CELL DISTRIBUTION WIDTH 14.2 % (11.6-14.6)
[2022-06-19 10:39] LABS: CHLORIDE 106 mEq/L (98-107)
[2022-06-19 11:36] LABS: PLATELET 193 x1000/uL (130-400)
[2022-06-19 11:54] VITALS: BP 124/70
[2022-06-19] MEDS ORDERED: P50 MT (11:57)
[2022-06-19] MEDS ORDERED: BENZ100C86 MT ×2 (11:57)
[2022-06-19] MEDS ORDERED: PSEU60TA95 MT ×2 (11:57)
[2022-06-19] MEDS ORDERED: TUSSL MT (12:00)
== END 2022-06-19 12:22 | disposition home or self-care (01) ==
LOC: ER 08:43
DX: R07.89 Other chest pain (principal); R05.9 Cough, unspecified; J45.909 Unspecified asthma, uncomplicated; Z20.822 Contact with and (suspected) exposure to COVID-19; Z88.1 Allergy status to other antibiotic agents; Z88.5 Allergy status to narcotic agent; Z79.899 Other long term (current) drug therapy
CPT/HCPCS: 36415; 71045; 80053; 83690; 83880; 84484; 85025; 87426; 87804; 94640; 99284; C9803; J7512

== ENCOUNTER 2022-07-22 07:43 | Emergency (ER) | payer MEDICARE, MEDICAID ==
[~2022-07-22] VITALS: Ht 162.6 cm; Wt 60.0 kg
[~2022-07-22 07:43] MED LIST changes: +P50 MT
[2022-07-22] MEDS ORDERED: VISCOUS LIDOCAINE 2% 15 ML UDC PO STA (08:43)
[2022-07-22] MEDS ORDERED: MAGNESIUM/ALUMINUM HYDROXIDE/SIMETHICONE 30ML UDC PO STA (08:43)
[2022-07-22] MEDS ORDERED: MECLIZINE 25MG TABLET PO ONE (08:45)
[2022-07-22] MEDS ORDERED: SODIUM CHLORIDE 0.9% 1,000 ML IV ONE (08:45)
[2022-07-22 09:17] LABS: BASOPHILS % 0.9 % (0.0-2.0); HEMATOCRIT. 41.5 % (36.0-48.0); HEMOGLOBIN. 13.9 g/dL (12.0-16.0); LYMPHOCYTES % 37.7 % (20.0-50.0); MEAN CORPUSCULAR HEMOGLOBIN 31.1 pg (28.0-32.0); MEAN CORPUSCULAR VOLUME 92.8 fL (81.0-99.0); MEAN PLATELET VOLUME 9.3 fl (7.4-10.4); MONOCYTES % 8.4 % (2.0-8.0); PLATELET 260 x1000/uL (130-400); RED BLOOD CELL COUNT 4.47 mill/uL (4.2-5.4); RED CELL DISTRIBUTION WIDTH 14.4 % (11.6-14.6)
[2022-07-22 09:26] LABS: CHLORIDE 108 mEq/L (98-107)
[2022-07-22 09:36] LABS: HCG SCREEN NEGATIVE
[2022-07-22 09:44] LABS: PARTIAL THROMBOPLASTIN TIME 27.1 sec (23.4-31.0); PROTHROMBIN TIME 10.6 sec (9.6-11.0)
[2022-07-22] MEDS ORDERED: DIPHENHYDRAMINE 50MG/ML VIAL IV ONE (12:00)
[2022-07-22] MEDS ORDERED: MAGNESIUM/ALUMINUM HYDROXIDE/SIMETHICONE 30ML UDC PO SCH (12:00)
[2022-07-22] MEDS ORDERED: IPRATROPIUM/ALBUTEROL 0.5-3(2.5)MG/3ML NEB HHN ONE (12:00)
[2022-07-22] MEDS ORDERED: VISCOUS LIDOCAINE 2% 15 ML UDC PO SCH (12:00)
[2022-07-22] MEDS: METOCLOPRAMIDE HCL 10MG/2ML VIAL IV ONE ×2 (12:00→12:46)
[2022-07-22 14:17] LABS: CLARITY URINE CLEAR (CLEAR); COLOR URINE YELLOW (YELLOW); KETONES URINE NEGATIVE (NEGATIVE); LEUKOCYTE ESTERASE URINE 1+ (NEGATIVE); NITRITE URINE NEGATIVE (NEGATIVE); OCCULT BLOOD URINE NEGATIVE (NEGATIVE); PH URINE 6.5 (4.5-8.0); PROTEIN URINE NEGATIVE (NEGATIVE); SPECIFIC GRAVITY URINE 1.012 (1.005-1.030); UROBILINOGEN URINE 0.2 E.U./dL (0.2-1.0)
[2022-07-22] MEDS ORDERED: ALBU90AE INH (14:20)
[2022-07-22] MEDS ORDERED: P50 MT (14:20)
[2022-07-22] MEDS ORDERED: ALBU05 NEB (14:20)
[2022-07-22 14:30] VITALS: BP 103/60
== END 2022-07-22 16:30 | disposition home or self-care (01) ==
LOC: ER 07:43
DX: J45.901 Unspecified asthma with (acute) exacerbation (principal); H81.10 Benign paroxysmal vertigo, unspecified ear; R51.9 Headache, unspecified; Z88.5 Allergy status to narcotic agent; Z88.1 Allergy status to other antibiotic agents; Z79.899 Other long term (current) drug therapy
CPT/HCPCS: 36415; 70450; 71045; 80053; 81003; 83690; 84484; 84703; 85025; 85610; 85730; 93005; 94640; 96361; 96374; 99285; J1200; J2765; J7030; J8597

== ENCOUNTER 2022-10-01 05:44 | Emergency (ER) | payer MEDICARE, MEDICAID ==
[~2022-10-01] VITALS: Ht 160 cm; Wt 46.0 kg
[~2022-10-01 05:44] MED LIST changes: +ALBU05 NEB; +ALBU2SYR23 MT; -ALBUL MT
[2022-10-01 06:28] LABS: BASOPHILS % 0.2 % (0.0-2.0); EOSINOPHILS % 7.5 % (0.0-5.0); HEMATOCRIT. 37.6 % (36.0-48.0); HEMOGLOBIN. 12.8 g/dL (12.0-16.0); MEAN CORPUSCULAR HEMOGLOBIN 31.2 pg (28.0-32.0); MEAN CORPUSCULAR VOLUME 91.7 fL (81.0-99.0); MEAN PLATELET VOLUME 9.8 fl (7.4-10.4); MONOCYTES % 5.5 % (2.0-8.0); NEUTROPHILS % 69.8 % (40.0-76.0); PLATELET 248 x1000/uL (130-400); RED BLOOD CELL COUNT 4.11 mill/uL (4.2-5.4)
[2022-10-01 06:32] LABS: CHLORIDE 110 mEq/L (98-107)
[2022-10-01 06:40] LABS: PARTIAL THROMBOPLASTIN TIME 27.6 sec (23.4-31.0)
[2022-10-01 07:59] LABS: BG CARBOXYHEMOGLOBIN 0.3 % (0.5-1.5); BG DEOXYHEMOGLOBIN 3.7 % (0.0-5.0); BG HCO3 ACT 24.9 mmol/L (22.0-26.0); BG METHEMOGLOBIN 0.5 % (0.0-1.5); BG OXYGEN SATURATION 96.3 % (92.0-98.5); BG OXYHEMOGLOBIN 95.5 % (94.0-97.0); BG PCO2 41.7 mmHg (35.0-45.0); BG PH 7.394 (7.350-7.450); BG PO2 83.1 mmHg (75.0-100.0); BG SAMPLE SITE RIGHT RADIAL; BG TOTAL HEMOGLOBIN 13.7 g/dL (12.0-18.0); BG VENT MODE ROOM AIR
[2022-10-01] MEDS ORDERED: ACETAMINOPHEN 325MG TABLET PO NR (08:45)
[2022-10-01] MEDS ORDERED: ALBU2SYR23 MT (10:27)
[2022-10-01] MEDS ORDERED: BENZ100C86 MT (10:27)
[2022-10-01] MEDS ORDERED: P50 MT (10:27)
[2022-10-01 10:37] VITALS: BP 125/78
== END 2022-10-01 10:40 | disposition home or self-care (01) ==
LOC: ER 05:44
DX: R06.02 Shortness of breath (principal); J45.909 Unspecified asthma, uncomplicated; Z88.5 Allergy status to narcotic agent; Z88.1 Allergy status to other antibiotic agents; Z79.899 Other long term (current) drug therapy
CPT/HCPCS: 36415; 36600; 71045; 80053; 82375; 82805; 84484; 85025; 93005; 99285

== ENCOUNTER 2023-03-13 14:38 | Emergency (ER) | payer MEDICARE, MEDICAID ==
[~2023-03-13] VITALS: Ht 160 cm; Wt 43.1 kg
[~2023-03-13 14:38] MED LIST changes: +BENZ100C86 MT; -CEPH500C2 MT; -FAMO-135 MT; -HYDR-4346 MT; +MAG355OR21 MT; -METH-375 PO; -ONDA4TAB11 PO; -ONDA4TAB5 PO
[2023-03-13 15:13] VITALS: BP 115/80; TEMP 98.9; O2SAT 98
[2023-03-13] MEDS ORDERED: IPRATROPIUM BROMIDE (0.02%) 0.5MG/2.5ML NEB HHN STA (16:08)
[2023-03-13] MEDS ORDERED: DEXAMETHASONE 1MG TABLET PO ONE (16:15)
[2023-03-13] MEDS ORDERED: DEXAMETHASONE 4MG TABLET PO NR (16:30)
[2023-03-13 16:32] LABS: HEMATOCRIT. 36.2 % (36.0-48.0); HEMOGLOBIN. 12.1 g/dL (12.0-16.0); MEAN CORPUSCULAR HEMOGLOBIN 30.6 pg (28.0-32.0); MEAN CORPUSCULAR HGB CONC 33.5 g/dL (31.0-37.0); MEAN CORPUSCULAR VOLUME 91.5 fL (81.0-99.0); MEAN PLATELET VOLUME 9.8 fl (7.4-10.4); PLATELET 220 x1000/uL (130-400); RED BLOOD CELL COUNT 3.95 mill/uL (4.2-5.4); RED CELL DISTRIBUTION WIDTH 13.2 % (11.6-14.6); WHITE BLOOD COUNT 6.5 x1000/uL (4.5-11.0)
[2023-03-13 16:34] LABS: DIFFERENTIAL COMMENT 1
[2023-03-13 16:40] LABS: CHLORIDE 108 mEq/L (98-107); INDEX HEMOLYSI 1 (1-3); INDEX ICTERIC 1 (1-4); INDEX LIPEMIC 1 (1-3); POTASSIUM 3.8 mEq/L (3.5-5.1); SODIUM 142 mEq/L (136-145)
[2023-03-13 16:48] LABS: ALANINE AMINOTRANSFERASE 12 IU/L (13-61); ALBUMIN 4.2 g/dL (3.4-5.0); ASPARTATE AMINOTRANSFERASE 17 IU/L (15-37); BILIRUBIN TOTAL 0.2 mg/dL (0.1-1.0); CALCIUM 8.5 mg/dL (8.5-10.1); CARBON DIOXIDE 31 mEq/L (21-32); CREATININE 0.8 mg/dL (0.6-1.3); GLUCOSE 73 mg/dL (70-105); PROTEIN TOTAL 7.3 g/dL (6.0-8.3); UREA NITROGEN BLOOD 8 mg/dL (7-21)
[2023-03-13 16:55] LABS: PLATELET ESTIMATE NORMAL
[2023-03-13] MEDS ORDERED: ONDANSETRON 4MG ODT PO ONE (17:15)
[2023-03-13] MEDS ORDERED: IPRATROPIUM BROMIDE (0.02%) 0.5MG/2.5ML NEB ONE (18:38)
[2023-03-13 18:39] VITALS: PULSE 78; RESP 20
[2023-03-13] MEDS: ALBUTEROL (0.083%) 2.5MG/3ML NEB HHN SCH ×3 (18:39→19:19)
[2023-03-13 18:59] VITALS: PULSE 82; RESP 20
[2023-03-13 19:19] VITALS: PULSE 80; RESP 20
[2023-03-13] MEDS ORDERED: BENZ100C86 MT (20:34)
[2023-03-13] MEDS ORDERED: ALBU6.7H15 INH (20:34)
[2023-03-13] MEDS ORDERED: FLUT9.9S BOTHNSTRLS (20:34)
== END 2023-03-13 20:42 | disposition home or self-care (01) ==
LOC: ER 15:00
DX: J45.901 Unspecified asthma with (acute) exacerbation (principal); B34.9 Viral infection, unspecified; D57.1 Sickle-cell disease without crisis; F41.9 Anxiety disorder, unspecified; F32.A Depression, unspecified; Z79.899 Other long term (current) drug therapy; Z88.1 Allergy status to other antibiotic agents; Z88.5 Allergy status to narcotic agent; Z88.8 Allergy status to other drugs, medicaments and biological substances
CPT/HCPCS: 99285; 71045; 80053; 85025; 36415; 94640; J8540; Q0162

== ENCOUNTER 2023-11-25 12:39 | Emergency (ER) | payer OTHER, MEDICAID ==
[~2023-11-25] VITALS: Ht 160 cm; Wt 55.0 kg
[~2023-11-25 12:39] MED LIST changes: -ALBU05 NEB; -ALBU2.5V13 NEB; -ALBU2SYR23 MT; -ALBU6.7H3 INH; -ALBU90AE INH; -AMOX-424 MT; -BENZ100C86 MT; -BUDE6.9H INH; -CEPH250C2 MT; -CLAR10 PO; -CYCL5TAB MT; -D-ME473S8 MT; +DICL100G58 TP; -FAMO40TA70 PO; -FLUT12AE7 INH; -FLUT1DIS3 INH; -FLUT9.9S BOTHNSTRLS; -HYDR-4001 MT; -HYDR-459 MT; +IBUP-2028 PO; -IBUP-2029 MT; -LISI-186 PO; -LORA-249 MT; -MAG-55 MT; -MAG355OR21 MT; -METH-653 MT; -MONT-46 PO; +OMEP20CA14 PO; -ONDA4TAB50 MT; -P20 MT; -P50 MT; -PROT20 MT; -SALM50DI INH; -TOPUD PO; -TUSSL MT; -[UNRECOGNIZED DRUG - CODE] MT
[2023-11-25 13:07] VITALS: O2SAT 99
[2023-11-25 14:21] LABS: BASOPHILS % 0.8 % (0.0-2.0); EOSINOPHILS % 5.3 % (0.0-5.0); HEMOGLOBIN. 13.5 g/dL (12.0-16.0); LYMPHOCYTES % 37.6 % (20.0-50.0); MEAN CORPUSCULAR HGB CONC 32.9 g/dL (31.0-37.0); MEAN CORPUSCULAR VOLUME 91.3 fL (81.0-99.0); MEAN PLATELET VOLUME 9.9 fl (7.4-10.4); MONOCYTES % 5.4 % (2.0-8.0); NEUTROPHILS % 50.9 % (40.0-76.0); PLATELET 247 x1000/uL (130-400); RED BLOOD CELL COUNT 4.49 mill/uL (4.2-5.4); RED CELL DISTRIBUTION WIDTH 13.7 % (11.6-14.6); WHITE BLOOD COUNT 6.9 x1000/uL (4.5-11.0)
[2023-11-25 14:22] LABS: CHLORIDE 106 mEq/L (98-107); POTASSIUM 3.9 mEq/L (3.5-5.1); SODIUM 139 mEq/L (136-145)
[2023-11-25 14:23] LABS: CALCIUM 9.5 mg/dL (8.7-10.4); CARBON DIOXIDE 25 mEq/L (21-32)
[2023-11-25 14:28] LABS: CREATININE 0.8 mg/dL (0.6-1.0); GLUCOSE 79 mg/dL (70-105); UREA NITROGEN BLOOD 9 mg/dL (9-23)
[2023-11-25 14:29] LABS: TROPONIN I HIGH SENSITIVITY 11 ng/L (3.0-34)
[2023-11-25] MEDS ORDERED: TRAM50TA3 MT (15:02)
[2023-11-25] MEDS ORDERED: LORA-249 MT (15:02)
[2023-11-25] MEDS: TRAMADOL 50MG TABLET PO ONE (15:54)
[2023-11-25 15:58] VITALS: BP 126/82; PULSE 66; RESP 15; TEMP 98.5
== END 2023-11-25 15:59 | disposition home or self-care (01) ==
LOC: ER 12:39
DX: M79.602 Pain in left arm (principal); R55 Syncope and collapse; F41.9 Anxiety disorder, unspecified; J45.909 Unspecified asthma, uncomplicated; F32.A Depression, unspecified; K21.9 Gastro-esophageal reflux disease without esophagitis; D57.1 Sickle-cell disease without crisis; Z88.5 Allergy status to narcotic agent; Z88.8 Allergy status to other drugs, medicaments and biological substances
CPT/HCPCS: 36415; 71045; 80048; 84484; 85025; 93005; 99285

== ENCOUNTER 2023-12-13 18:44 | Emergency (ER) | payer OTHER, MEDICAID ==
[~2023-12-13] VITALS: Ht 167.6 cm; Wt 52.0 kg
[~2023-12-13 18:44] MED LIST changes: +LORA-249 MT; +TRAM50TA3 MT
[2023-12-13 19:05] VITALS: O2SAT 100
[2023-12-13 19:42] LABS: BASOPHILS % 0.7 % (0.0-2.0); EOSINOPHILS % 5.6 % (0.0-5.0); HEMATOCRIT. 37.3 % (36.0-48.0); HEMOGLOBIN. 12.6 g/dL (12.0-16.0); LYMPHOCYTES % 33.8 % (20.0-50.0); MEAN CORPUSCULAR HEMOGLOBIN 30.6 pg (28.0-32.0); MEAN CORPUSCULAR HGB CONC 33.9 g/dL (31.0-37.0); MEAN CORPUSCULAR VOLUME 90.3 fL (81.0-99.0); MONOCYTES % 5.9 % (2.0-8.0); PLATELET 258 x1000/uL (130-400); RED BLOOD CELL COUNT 4.13 mill/uL (4.2-5.4); RED CELL DISTRIBUTION WIDTH 13.5 % (11.6-14.6); WHITE BLOOD COUNT 7.1 x1000/uL (4.5-11.0)
[2023-12-13 19:49] LABS: CHLORIDE 106 mEq/L (98-107); POTASSIUM 4.5 mEq/L (3.5-5.1); SODIUM 140 mEq/L (136-145)
[2023-12-13 19:50] LABS: CARBON DIOXIDE 27 mEq/L (21-32)
[2023-12-13 19:51] LABS: CALCIUM 9.4 mg/dL (8.7-10.4)
[2023-12-13 19:55] LABS: CREATININE 0.9 mg/dL (0.6-1.0); GLUCOSE 96 mg/dL (70-105)
[2023-12-13 19:56] LABS: UREA NITROGEN BLOOD 9 mg/dL (9-23)
[2023-12-13 19:57] LABS: TROPONIN I HIGH SENSITIVITY 10 ng/L (3.0-34)
[2023-12-13 20:13] LABS: HCG SCREEN NEGATIVE
[2023-12-13] MEDS: LORAZEPAM 1MG TABLET PO ONE (22:16)
[2023-12-13] MEDS: IBUPROFEN 800MG TABLET PO ONE (22:16)
[2023-12-13] MEDS ORDERED: IBUP-2030 MT (23:07)
[2023-12-13] MEDS ORDERED: LORA-250 MT (23:23)
[2023-12-13 23:46] VITALS: BP 125/77; PULSE 84; RESP 20; TEMP 98
== END 2023-12-13 23:47 | disposition home or self-care (01) ==
LOC: ER 18:44
DX: M25.562 Pain in left knee (principal); F41.9 Anxiety disorder, unspecified; J45.909 Unspecified asthma, uncomplicated; F32.9 Major depressive disorder, single episode, unspecified; K21.9 Gastro-esophageal reflux disease without esophagitis; Z79.899 Other long term (current) drug therapy; Z88.5 Allergy status to narcotic agent; Z88.1 Allergy status to other antibiotic agents; Z88.2 Allergy status to sulfonamides
CPT/HCPCS: 36415; 71045; 73560; 80048; 84484; 84703; 85025; 85044; 86850; 86900; 93005; 99285

== ENCOUNTER 2024-06-12 18:45 | Emergency (ER) | payer OTHER, MEDICAID ==
[~2024-06-12] VITALS: Ht 160 cm; Wt 44.0 kg
[~2024-06-12 18:45] MED LIST changes: +IBUP-2030 MT; +LORA-250 MT
[2024-06-12 19:03] VITALS: O2SAT 100
[2024-06-13 00:24] LABS: CHLORIDE 108 mEq/L (98-107); HEMOGLOBIN. 12.8 g/dL (12.0-16.0); MEAN CORPUSCULAR HGB CONC 34.1 g/dL (31.0-37.0); MEAN PLATELET VOLUME 9.6 fl (7.4-10.4); POTASSIUM 3.7 mEq/L (3.5-5.1); SODIUM 142 mEq/L (136-145)
[2024-06-13 00:25] LABS: CARBON DIOXIDE 28 mEq/L (21-32)
[2024-06-13 00:26] LABS: CALCIUM 9.9 mg/dL (8.7-10.4)
[2024-06-13 00:30] LABS: CREATININE 0.8 mg/dL (0.6-1.0); GLUCOSE 91 mg/dL (70-105)
[2024-06-13 00:31] LABS: UREA NITROGEN BLOOD 9 mg/dL (9-23)
[2024-06-13 00:32] LABS: TROPONIN I HIGH SENSITIVITY 8 ng/L (3.0-34)
[2024-06-13 00:34] LABS: EOSINOPHILS % 11.6 % (0.0-5.0); HEMATOCRIT. 37.7 % (36.0-48.0); LYMPHOCYTES % 41.3 % (20.0-50.0); MEAN CORPUSCULAR HEMOGLOBIN 30.5 pg (28.0-32.0); MEAN CORPUSCULAR VOLUME 89.5 fL (81.0-99.0); MONOCYTES % 7.3 % (2.0-8.0); NEUTROPHILS % 38.8 % (40.0-76.0); PLATELET 286 x1000/uL (130-400); RED BLOOD CELL COUNT 4.21 mill/uL (4.2-5.4); RED CELL DISTRIBUTION WIDTH 13.9 % (11.6-14.6); WHITE BLOOD COUNT 7.2 x1000/uL (4.5-11.0)
[2024-06-13 00:41] LABS: DIFFERENTIAL COMMENT 1
[2024-06-13] MEDS: HYDROXYZINE 10MG TABLET PO STA (01:09)
[2024-06-13] MEDS: IBUPROFEN 400MG TABLET PO ONE (01:09)
[2024-06-13] MEDS: ONDANSETRON HCL 4MG/2ML INJ IV ONE (02:56)
[2024-06-13] MEDS: IOHEXOL-350 100 ML BOTTLE ONE (04:17)
[2024-06-13 04:50] VITALS: BP 133/80; PULSE 66; RESP 16; TEMP 36.7; O2SAT 100
== END 2024-06-13 04:51 | disposition home or self-care (01) ==
LOC: ER 18:45
DX: R07.89 Other chest pain (principal); F41.9 Anxiety disorder, unspecified; J45.909 Unspecified asthma, uncomplicated; F32.A Depression, unspecified; K21.9 Gastro-esophageal reflux disease without esophagitis; Z79.899 Other long term (current) drug therapy; Z88.1 Allergy status to other antibiotic agents; Z88.5 Allergy status to narcotic agent; Z88.8 Allergy status to other drugs, medicaments and biological substances
CPT/HCPCS: 99285; 71045; 80048; 83880; 85025; 85379; 84484; 36415; 96374; 71275; Q9967; J2405

== ENCOUNTER 2024-10-10 10:41 | Emergency (ER) | payer MEDICARE, MEDICAID ==
[~2024-10-10] VITALS: Ht 160 cm; Wt 45.0 kg
[~2024-10-10 10:41] MED LIST changes: +ABIL5 PO; +ALPR0.25 PO; +BUSP10TA4 PO; +FAMO40TA70 PO; +GABA-534 PO; +QUET100T PO; +SERT25TA PO
[2024-10-10 10:46] VITALS: O2SAT 100
[2024-10-10 11:22] LABS: BASOPHILS % 0.6 % (0.0-2.0); EOSINOPHILS % 3.7 % (0.0-5.0); HEMATOCRIT. 38.8 % (36.0-48.0); HEMOGLOBIN. 12.9 g/dL (12.0-16.0); LYMPHOCYTES % 31.1 % (20.0-50.0); MEAN CORPUSCULAR HGB CONC 33.3 g/dL (31.0-37.0); MEAN CORPUSCULAR VOLUME 89.9 fL (81.0-99.0); MEAN PLATELET VOLUME 9.3 fl (7.4-10.4); MONOCYTES % 5.7 % (2.0-8.0); NEUTROPHILS % 58.9 % (40.0-76.0); PLATELET 244 x1000/uL (130-400); RED BLOOD CELL COUNT 4.32 mill/uL (4.2-5.4); RED CELL DISTRIBUTION WIDTH 14.3 % (11.6-14.6); WHITE BLOOD COUNT 5.2 x1000/uL (4.5-11.0)
[2024-10-10 11:34] LABS: CARBON DIOXIDE 23 mEq/L (21-32); CHLORIDE 106 mEq/L (98-107); POTASSIUM 3.7 mEq/L (3.5-5.1); SODIUM 141 mEq/L (136-145)
[2024-10-10 11:39] LABS: TROPONIN I HIGH SENSITIVITY 11 ng/L (3.0-34)
[2024-10-10 11:40] LABS: CREATININE 0.9 mg/dL (0.6-1.0); GLUCOSE 92 mg/dL (70-105); UREA NITROGEN BLOOD 7 mg/dL (9-23)
[2024-10-10 12:15] VITALS: BP 125/77; PULSE 64; RESP 18; TEMP 36.8; O2SAT 100
[2024-10-10] MEDS: ASPIRIN 81MG EC TABLET PO ONE (12:21)
== END 2024-10-10 12:29 | disposition home or self-care (01) ==
LOC: ER 10:41
DX: R07.89 Other chest pain (principal); F41.9 Anxiety disorder, unspecified; F19.90 Other psychoactive substance use, unspecified, uncomplicated; I10 Essential (primary) hypertension; Z88.1 Allergy status to other antibiotic agents; Z88.5 Allergy status to narcotic agent
CPT/HCPCS: 36415; 71045; 80048; 84484; 85025; 93005; 99285

== ENCOUNTER 2024-12-12 15:31 | Inpatient (IN) | payer MEDICARE, MEDICAID ==
[~2024-12-12] VITALS: Ht 167.6 cm; Wt 44.0 kg
[2024-12-12 15:34] VITALS: O2SAT 98
[2024-12-12] MEDS: ONDANSETRON 4MG ODT PO ONE (17:00)
[2024-12-12] MEDS: ACETAMINOPHEN 325MG TABLET PO ONE (17:23)
[2024-12-12 17:31] LABS: BASOPHILS % 0.6 % (0.0-2.0); EOSINOPHILS % 1.6 % (0.0-5.0); HEMATOCRIT. 39.5 % (36.0-48.0); HEMOGLOBIN. 13.3 g/dL (12.0-16.0); LYMPHOCYTES % 30.9 % (20.0-50.0); MEAN PLATELET VOLUME 9.9 fl (7.4-10.4); MONOCYTES % 5.9 % (2.0-8.0); NEUTROPHILS % 61.0 % (40.0-76.0); PLATELET 235 x1000/uL (130-400); RED BLOOD CELL COUNT 4.37 mill/uL (4.2-5.4); RED CELL DISTRIBUTION WIDTH 14.3 % (11.6-14.6)
[2024-12-12 17:35] LABS: CREATININE 0.9 mg/dL (0.6-1.0)
[2024-12-12 17:36] LABS: ETHANOL BLOOD < 10 mg/dL (<10); UREA NITROGEN BLOOD 9 mg/dL (9-23)
[2024-12-12 17:37] LABS: ASPARTATE AMINOTRANSFERASE 22 IU/L (<34); BILIRUBIN DIRECT < 0.1 mg/dL (<=3.0)
[2024-12-12 17:38] LABS: BILIRUBIN TOTAL 0.5 mg/dL (0.1-1.0); PROTEIN TOTAL 7.2 g/dL (6.0-8.3); TROPONIN I HIGH SENSITIVITY 17 ng/L (3.0-34)
[2024-12-12 17:42] LABS: INR 1.0
[2024-12-12 17:47] LABS: HCG SCREEN NEGATIVE
[2024-12-12] MEDS ORDERED: KETOROLAC 30MG/ML VIAL IM ONE (18:00)
[2024-12-12 18:14] LABS: INFLUENZA TYPE A Presumptive Negative (Pres. Neg.); INFLUENZA TYPE B Presumptive Negative (Pres. Neg.)
[2024-12-12 18:15] LABS: RESPIRATORY SYNCYTIAL VIRUS Not Detected (Not Detectd)
[2024-12-12 18:16] LABS: CLARITY URINE CLEAR (CLEAR); GLUCOSE URINE NEGATIVE (NEGATIVE); KETONES URINE TRACE (NEGATIVE); LEUKOCYTE ESTERASE URINE 1+ (NEGATIVE); NITRITE URINE NEGATIVE (NEGATIVE); OCCULT BLOOD URINE NEGATIVE (NEGATIVE); PH URINE 7.5 (4.5-8.0); PROTEIN URINE NEGATIVE (NEGATIVE); SPECIFIC GRAVITY URINE 1.012 (1.005-1.030); UROBILINOGEN URINE 0.2 E.U./dL (0.2-1.0)
[2024-12-12 18:29] LABS: *AMPHETAMINES SCREEN URINE NEGATIVE (NEGATIVE); *BARBITURATES SCREEN URINE NEGATIVE (NEGATIVE); *BENZODIAZEPINES SCREEN URINE NEGATIVE (NEGATIVE); *COCAINE SCREEN URINE NEGATIVE (NEGATIVE); CANNABINOID URINE SCREEN NEGATIVE (NEGATIVE); ECSTASY MDMA SCREEN URINE NEGATIVE (NEGATIVE); METHADONE URINE SCREEN NEGATIVE (NEGATIVE); OPIATES URINE SCREEN NEGATIVE (NEGATIVE); PHENCYCLIDINE URINE SCREEN NEGATIVE (NEGATIVE)
[2024-12-12] MEDS: ASPIRIN 325MG EC TABLET PO ONE (18:32)
[2024-12-12] MEDS: HYDROCODONE/ACETAMINOPHEN 5/325MG TABLET PO ONE (18:32)
[2024-12-12 18:53] LABS: COLOR URINE STRAW (YELLOW)
[2024-12-12 18:54] LABS: BACTERIA URINE TRACE; RBC URINE NONE SEEN /hpf (0-2); SQUAMOUS EPITHELIAL CELL URINE 1+ /lpf (RARE/1+)
[2024-12-12] MEDS: LORAZEPAM 1MG TABLET PO ONE (21:44)
[2024-12-13] VITALS: BP 131/83; PULSE 76; RESP 20; TEMP 36.9; O2SAT 98
[2024-12-13 02:19] VITALS: BP 142/53; PULSE 66; RESP 18; TEMP 36.696
[2024-12-13] MEDS: PANTOPRAZOLE 40MG DR TABLET PO SCH (06:38)
[2024-12-13 06:47] LABS: BASOPHILS % 1.0 % (0.0-2.0); EOSINOPHILS % 6.4 % (0.0-5.0); HEMATOCRIT. 35.7 % (36.0-48.0); HEMOGLOBIN. 11.8 g/dL (12.0-16.0); LYMPHOCYTES % 49.0 % (20.0-50.0); MEAN PLATELET VOLUME 10.0 fl (7.4-10.4); MONOCYTES % 8.1 % (2.0-8.0); NEUTROPHILS % 35.5 % (40.0-76.0); PLATELET 192 x1000/uL (130-400); RED BLOOD CELL COUNT 4.01 mill/uL (4.2-5.4); RED CELL DISTRIBUTION WIDTH 14.2 % (11.6-14.6)
[2024-12-13] MEDS ORDERED: HYDR-4001 MT (06:50)
[2024-12-13] MEDS ORDERED: ONDA4TAB50 MT (06:50)
[2024-12-13 07:04] LABS: TROPONIN I HIGH SENSITIVITY 15 ng/L (3.0-34)
[2024-12-13 07:07] LABS: CREATININE 0.8 mg/dL (0.6-1.0)
[2024-12-13 07:08] LABS: UREA NITROGEN BLOOD 9 mg/dL (9-23)
[2024-12-13] MEDS: MORPHINE SULFATE 2 MG/ML INJ (NOT FOR IM USE) IV PRN (07:11)
[2024-12-13] MEDS: LORAZEPAM 0.5MG TABLET PO PRN (07:12)
[2024-12-13 08:00] VITALS: BP 110/70; PULSE 62; RESP 18; TEMP 36.6; O2SAT 100
[2024-12-13] MEDS ORDERED: ASPIRIN 325MG TABLET PO SCH (09:00)
[2024-12-13] MEDS: ENOXAPARIN 40MG/0.4ML SYR SUBCUT SCH (09:19)
[2024-12-13] MEDS: ASPIRIN 81MG TABLET PO SCH (09:19)
[2024-12-13] MEDS: ONDANSETRON HCL 4MG/2ML INJ IV PRN (09:30)
[2024-12-13 12:00] VITALS: BP 103/55; PULSE 69; RESP 18; TEMP 36.2; O2SAT 98
[2024-12-13] MEDS: SODIUM CHLORIDE 0.45% 1,000 ML IV SCH (14:51)
[2024-12-13 16:00] VITALS: BP 90/45; PULSE 70; RESP 18; TEMP 36.2; O2SAT 100
[2024-12-13] MEDS: CEFTRIAXONE 1GM/50ML 50 ML IV SCH (17:36)
[2024-12-13 18:08] LABS: TROPONIN I HIGH SENSITIVITY 10 ng/L (3.0-34)
[2024-12-13] MEDS: DIPHENHYDRAMINE 25MG CAPSULE PO PRN (19:50)
[2024-12-13 20:00] VITALS: BP 92/53; PULSE 69; RESP 17; TEMP 36.6; O2SAT 97
[2024-12-14] VITALS: BP 83/44; PULSE 57; RESP 16; TEMP 36.4; O2SAT 100
[2024-12-14 03:38] LABS: TROPONIN I HIGH SENSITIVITY 9 ng/L (3.0-34)
[2024-12-14 04:00] VITALS: BP 92/53; PULSE 69; RESP 16; TEMP 38.1; O2SAT 98
[2024-12-14] MEDS: MAGNESIUM/ALUMINUM HYDROXIDE/SIMETHICONE 30ML UDC PO PRN (06:32)
[2024-12-14 07:36] LABS: TROPONIN I HIGH SENSITIVITY 9 ng/L (3.0-34)
[2024-12-14 08:00] VITALS: BP 89/56; PULSE 80; RESP 20; TEMP 37.1; O2SAT 100
[2024-12-14 12:00] VITALS: BP 90/51; PULSE 71; RESP 20; TEMP 36.7; O2SAT 99
[2024-12-14 16:00] VITALS: BP 108/61; PULSE 72; RESP 18; TEMP 36.3; O2SAT 97
[2024-12-14 20:00] VITALS: BP 116/71; PULSE 76; RESP 18; TEMP 36.6; O2SAT 100
[2024-12-14] MEDS: HYDROCODONE/ACETAMINOPHEN 10/325MG TABLET PO PRN (20:16)
[2024-12-15] VITALS (7 sets, daily range): BP systolic 93–112; BP diastolic 40–70; PULSE 65–88; RESP 17–18; TEMP 36.2–36.5; O2SAT 97–100
[2024-12-15] MEDS ORDERED: IBUP-2028 PO (15:17)
[2024-12-16] MEDS ORDERED: FAMOTIDINE 20MG TABLET PO SCH (07:10)
== END 2024-12-15 22:29 | disposition home or self-care (01) | DRG 690 ==
LOC: ER 15:31 → 8WST 22:28 → EDBEDREQ 22:37 → EDBEDREQTM 22:37 → ENRESERV 22:40
PROVIDERS: ADMIT Internal Medicine; ATTEND Internal Medicine
DX: N39.0 Urinary tract infection, site not specified (principal); G89.29 Other chronic pain; I10 Essential (primary) hypertension; J45.909 Unspecified asthma, uncomplicated; R07.89 Other chest pain; F32.A Depression, unspecified; F41.9 Anxiety disorder, unspecified; Z88.1 Allergy status to other antibiotic agents; Z88.8 Allergy status to other drugs, medicaments and biological substances; Z79.899 Other long term (current) drug therapy; Z82.49 Family history of ischemic heart disease and other diseases of the circulatory system; D57.1 Sickle-cell disease without crisis
CPT/HCPCS: 36415; 71045; 73551; 80048; 80076; 80305; 80320; 81003; 83735; 83880; 84484; 84703; 85025; 85044; 85660; 87420; 87804; 93005; 93970; 97162; 97535; 99285; A4606; J0696; J1650; J2270; J2405; Q0162; Q0163; G0480

== ENCOUNTER 2025-02-16 13:41 | Emergency (ER) | payer MEDICAID, MEDICARE ==
[~2025-02-16] VITALS: Ht 160 cm; Wt 45.0 kg
[~2025-02-16 13:41] MED LIST changes: +HYDR-4001 MT; -IBUP-2030 MT; -LORA-250 MT; +ONDA4TAB50 MT
[2025-02-16 14:09] VITALS: TEMP 36.9
[2025-02-16 14:52] LABS: BASOPHILS % 0.7 % (0.0-2.0); EOSINOPHILS % 4.4 % (0.0-5.0); HEMATOCRIT. 36.7 % (36.0-48.0); HEMOGLOBIN. 12.3 g/dL (12.0-16.0); LYMPHOCYTES % 28.1 % (20.0-50.0); MEAN PLATELET VOLUME 9.8 fl (7.4-10.4); MONOCYTES % 6.1 % (2.0-8.0); NEUTROPHILS % 60.7 % (40.0-76.0); PLATELET 267 x1000/uL (130-400); RED BLOOD CELL COUNT 4.10 mill/uL (4.2-5.4); RED CELL DISTRIBUTION WIDTH 13.9 % (11.6-14.6)
[2025-02-16 15:08] LABS: CREATININE 0.8 mg/dL (0.6-1.0); UREA NITROGEN BLOOD 8 mg/dL (9-23)
[2025-02-16 15:09] LABS: TROPONIN I HIGH SENSITIVITY 5 ng/L (3.0-34)
[2025-02-16] MEDS: MAGNESIUM/ALUMINUM HYDROXIDE/SIMETHICONE 30ML UDC PO ONE (15:46)
[2025-02-16] MEDS: FAMOTIDINE 20MG TABLET PO ONE (15:47)
[2025-02-16] MEDS: PREDNISONE 20MG TABLET PO ONE (15:47)
[2025-02-16] MEDS: ONDANSETRON 4MG ODT PO ONE (15:47)
[2025-02-16 16:13] LABS: INR 1.0
[2025-02-16 16:15] LABS: ASPARTATE AMINOTRANSFERASE 25 IU/L (<34)
[2025-02-16 16:16] LABS: BILIRUBIN DIRECT 0.1 mg/dL (<=3.0); BILIRUBIN TOTAL 0.5 mg/dL (0.1-1.0); PROTEIN TOTAL 7.2 g/dL (6.0-8.3)
[2025-02-16] MEDS: HYDROCODONE/ACETAMINOPHEN 5/325MG TABLET PO ONE (16:18)
[2025-02-16 16:28] VITALS: PULSE 98; RESP 18; O2SAT 98
[2025-02-16] MEDS: IPRATROPIUM/ALBUTEROL 0.5-3(2.5)MG/3ML NEB HHN ONE (16:28)
[2025-02-16] MEDS ORDERED: ONDA4TAB50 MT (16:50)
[2025-02-16] MEDS ORDERED: P50 MT (16:50)
[2025-02-16] MEDS ORDERED: AMOX1TAB16 MT (16:50)
[2025-02-16] MEDS ORDERED: ALBU18HF2 IH (16:50)
[2025-02-16 17:20] VITALS: BP 129/83; PULSE 98; RESP 18
[2025-02-16] MEDS: KETOROLAC 30MG/ML VIAL IM ONE (17:20)
[2025-02-16 17:33] LABS: SICKLE CELL SCREEN POSITIVE (NEGATIVE)
== END 2025-02-16 17:21 | disposition home or self-care (01) ==
LOC: ER 13:41
DX: R05.9 Cough, unspecified (principal); J45.901 Unspecified asthma with (acute) exacerbation; D57.3 Sickle-cell trait; F41.9 Anxiety disorder, unspecified; Z88.1 Allergy status to other antibiotic agents; Z88.5 Allergy status to narcotic agent
CPT/HCPCS: 99285; 71045; 80076; 80048; 85660; 83880; 83690; 85025; 85044; 85610; 84484; 36415; 94640; 93005; J1885; Q0162; J7512; 94070; 94664; 98960

== ENCOUNTER 2025-04-17 10:46 | Emergency (ER) | payer OTHER, MEDICAID ==
[~2025-04-17] VITALS: Ht 160 cm; Wt 46.0 kg
[~2025-04-17 10:46] MED LIST changes: +ALBU18HF2 IH; +AMOX1TAB16 MT; +P50 MT
[2025-04-17 10:57] VITALS: TEMP 36.7; O2SAT 100
[2025-04-17 11:52] LABS: BASOPHILS % 0.6 % (0.0-2.0); EOSINOPHILS % 4.4 % (0.0-5.0); HEMATOCRIT. 38.8 % (36.0-48.0); HEMOGLOBIN. 12.9 g/dL (12.0-16.0); LYMPHOCYTES % 30.6 % (20.0-50.0); MONOCYTES % 4.8 % (2.0-8.0); NEUTROPHILS % 59.6 % (40.0-76.0); RED BLOOD CELL COUNT 4.33 mill/uL (4.2-5.4); RED CELL DISTRIBUTION WIDTH 14.2 % (11.6-14.6)
[2025-04-17 11:59] LABS: MEAN PLATELET VOLUME 10.5 fl (7.4-10.4); PLATELET 224 x1000/uL (130-400)
[2025-04-17 12:03] LABS: INR 1.1
[2025-04-17 12:06] LABS: CREATININE 0.7 mg/dL (0.6-1.0); UREA NITROGEN BLOOD 6 mg/dL (9-23)
[2025-04-17 12:07] LABS: TROPONIN I HIGH SENSITIVITY 6 ng/L (3.0-34)
[2025-04-17 14:44] VITALS: TEMP 98
[2025-04-17] MEDS: ACETAMINOPHEN 325MG TABLET PO ONE (14:44)
[2025-04-17] MEDS ORDERED: TOPUD MT (15:35)
[2025-04-17] MEDS ORDERED: FAMO-135 MT (15:35)
[2025-04-17] MEDS ORDERED: IBUP-1521 MT (16:14)
[2025-04-17 16:45] VITALS: BP 118/69; PULSE 88; RESP 14; O2SAT 97
== END 2025-04-17 16:50 | disposition home or self-care (01) ==
LOC: ER 10:46
DX: S90.32XA Contusion of left foot, initial encounter (principal); R07.89 Other chest pain; F41.9 Anxiety disorder, unspecified; J45.909 Unspecified asthma, uncomplicated; Z88.5 Allergy status to narcotic agent; Z88.1 Allergy status to other antibiotic agents; X58.XXXA Exposure to other specified factors, initial encounter; Y93.89 Activity, other specified; Y92.89 Other specified places as the place of occurrence of the external cause; Y99.8 Other external cause status
CPT/HCPCS: 36415; 71045; 73630; 80048; 84484; 85025; 93005; 99285